=== PATIENT | male | born 1955 | race Caucasian/White ===

== ENCOUNTER 2021-02-20 06:36 | Day surgery (SDC) | payer OTHER ==
[2021-02-16 16:47] LABS: Absolute Lymphocytes (CBC) 2.9 K/uL (0.7-4.9); Basophils % 1.1 % (0-1.3); Hematocrit 34.2 % (39.6-49.0); Lymphocytes % 20.6 % (15.3-44.8); MPV 6.2 fL (7.6-11.3); RBC Red Blood Cell Count 4.08 M/uL (4.33-5.43)
--- NOTE | 2021-02-16 16:50 | RAD REPORT ---
EXAM DESCRIPTION: Elvira Rader (2 Views)02/16/2021 4:43 pm CLINICAL HISTORY: Preop COMPARISON: None FINDINGS: The lungs appear clear of acute infiltrate. The heart is normal size IMPRESSION: No acute abnormalities displayed
[2021-02-16 17:05] LABS: Potassium 4.2 mmol/L (3.5-5.1)
[2021-02-20] MEDS ORDERED: MIDAZOLAM HCL 2 MG/2 ML INJ ONE (07:31)
[2021-02-20] MEDS ORDERED: FENTANYL CITR 100 MCG/2 ML ONE (07:31)
[2021-02-20] MEDS ORDERED: propofoL 200 MG/20 ML VIAL IV ONE (07:31)
[2021-02-20] MEDS ORDERED: ROCURONIUM 50 MG/5 ML VIAL IV ONE (07:31)
[2021-02-20] MEDS ORDERED: LIDOCAINE 1% MPF 5 ML VIAL ONE (07:31)
[2021-02-20 07:36] LABS: Urine Appearance TURBID (Clear); Urine Bilirubin NEGATIVE (Negative); Urine Blood 2+ (Negative); Urine Color YELLOW (Yellow); Urine Glucose NEGATIVE (Negative); Urine Protein 1+ (Negative); Urine Specific Gravity 1.015 (1.005-1.030); Urine pH 5.5 (5.0-7.0)
[2021-02-20 07:48] LABS: Urine Microscopic Reflex ORDER UMIC
[2021-02-20 07:59] LABS: Urine RBC <5 /HPF (NONE SEEN)
[2021-02-20 08:00] LABS: Urine Bacteria >50 /HPF (NONE SEEN)
[2021-02-20] MEDS ORDERED: AMPICILLIN SODIUM 2 GM in NA CHLORIDE 0.9% 100 ML IVPB ONE (08:00)
[2021-02-20] MEDS ORDERED: Gentamicin Inj 240 MG in NA CHLORIDE 0.9% 100 ML IV ONE (08:00)
[2021-02-20] MEDS ORDERED: ONDANSETRON 4 MG/2 ML VIAL ONE (08:29)
[2021-02-20] MEDS ORDERED: dexAMETHasone 10 MG/ML VIAL ONE (08:29)
[2021-02-20] MEDS ORDERED: KETOROLAC 30 MG/ML INJ ONE (08:30)
[2021-02-20] MEDS ORDERED: CODEINE 30MG/APAP 300MG TAB PO PRN (08:31)
[2021-02-20] MEDS ORDERED: PHENAZOPYRIDINE 100MG TAB PO ONE ×2 (08:31→09:47)
[2021-02-20 08:34] VITALS: TEMP 97.5
[2021-02-20 08:49] VITALS: O2SAT 100
[2021-02-20 09:37] VITALS: BP 122/59
[2021-02-20] MEDS ORDERED: CODEINE 30MG/APAP 300MG TAB ONE (09:47)
--- NOTE | 2021-02-20 10:15 | OP ---
Date of Procedure: 02/20/2021 Surgeon: DANIELLE VELA Preoperative Diagnosis: Traumatic scrotal hypospadias. Postoperative Diagnoses: 1.Traumatic scrotal hypospadias. 2.Voiding dysfunction. 3.Mild benign prostatic hypertrophy. Principal Procedures: 1.Cystoscopy. 2.Suprapubic catheter placement. Indication For Procedure: Mr. Alvarez presented to Urology Clinic to see me after having been seen by my nurse practitioner, Imani with urinary retention due to unknown origin. He has a history o f diabetes as well as some developmental delay that could potentially underlie his voiding dysfunctio n. He was originally planned for cystoscopic evaluation, but at the time was noted to have severe tr aumatic hypospadias with the patient having tried to rip the catheter out on multiple occasions and r esulted in the urethra presumably tearing from its location down to beneath the penoscrota l junction. As a result, to spare further deterioration of his urethra, a suprapubic cath eter was recommended. Consultation with reconstructive urologist was held and given the patient's la ck of real mental acuity and lack of bother associated with the penile deformity that he created, a c omplex repair would unlikely be undertaken, especially since he would likely damage that repair by at tempts to remove the catheter. Of note, his caregivers indicate he had tried to rip the catheter out on at least 1 other occasion since I last saw him and recommended the suprapubic catheter be placed. Procedure In Detail: The patient was consented along with his caregiver in the preoperative holding area before being transferred to the operative suite where general anesthesia using an LMA was induce d. He was given ampicillin 2 g and gentamicin 240 mg IV antimicrobial prophylaxis and pneumo boots w ere provided for DVT prophylaxis. He was placed in the lithotomy position, padded and secured to the table appropriately. His genitalia and suprapubic region just beneath the umbilicus was prepped usi ng Betadine and he was draped in standard fashion. The case was begun using a 22-Slovenian rigid cystos cope to traverse the urethra and into the bladder with ease. The bladder was surveyed, and there wer e no papillary mucosal lesions, foreign bodies or stones of suspicion. The mucosa was relatively hea lthy despite the indwelling Macario catheter for a period of time. The prostatic urethra showed eviden ce of mild BPH with mild lateral lobar hypertrophy and mild median lobar hypertrophy without signific ant intravesical projection. The ureteral orifices were orthotopic in location and effluxing clear u rine bilaterally. As a result, I distended his bladder and placed the patient in steep Trendelenburg position before id entifying a place in the suprapubic region at the level of his abdominal crease about 1 or 2 fingerbr eadths above the pubic symphysis, and under direct vision, I placed the 14-Slovenian suprapubic catheter using the stylet. The catheter appropriately entered the target point within the anterior component of the bladder, and was advanced into the bladder. The stylet was removed, and the catheter was the n coiled using the Largo-Loop technology associated. With a good loop formed within the bladder, I th en removed the cystoscope and placed an 18-Slovenian Macario catheter into his bladder with ease. The sup rapubic catheter was then sutured to his abdomen using 2-0 nylon suture, and the case was completed. All catheters were secured copiously and multiple points to his abdomen and to his bilateral lower e xtremities in order to prohibit attempts to dislodge them. The suprapubic catheter to a leg bag and the urethral Macario catheter to a floor bag. The patient was then awakened from general anesthesia, t ransferred to a stretcher, and then transferred to the recovery room in good condition. Complications: None apparent. Discharge Disposition: He should follow up in Urology Clinic in about 6-8 weeks for exchange of the 14-Slovenian suprapubic catheter, likely to a 16-Slovenian catheter if appropriate dilatation of the tract occurs over this time-frame. Consideration may be given to providing him with a week or 2 of prophyl actic antimicrobial with Keflex 500 mg b.i.d. Subsequently, followup for suprapubic catheter exchang e may occur per routine every 4-6 weeks, and after about 3-4 weeks with a suprapubic catheter in plac e, the urethral Macario catheter can reasonably be removed. Care of the penoscrotal hypospadias site s hould then be managed with continued application of Neosporin/bacitracin twice a day to prohibit stri cturing of the neomeatus within the scrotum. This should also be evaluated at least every 4-6 weeks at the same time as a suprapubic catheter exchange to preserve that access if needed. MARTHA/BERNARDO Voice ID: [id number] Report ID: [id number]
== END 2021-02-20 09:59 | disposition home or self-care (01) ==
LOC: PRE 06:36 → OR 09:59
PROVIDERS: ATTEND Urology
PROC: 0T9B80Z Drainage of Bladder with Drainage Device, Via Natural or Artificial Opening Endoscopic (ICD-10-PCS; principal; 2021-02-20 07:30)
DX: R33.9 Retention of urine, unspecified (principal); R39.9 Unspecified symptoms and signs involving the genitourinary system; Q54.4 Congenital chordee; Q54.2 Hypospadias, penoscrotal; Z20.822 Contact with and (suspected) exposure to COVID-19
CPT/HCPCS: 36415; 71046; 80048; 81003; 81015; 82947; 85025; 85610; 87077; 87086; 87088; 87186; 93005; J0290; J1100; J1580; J2250; J2405; J2704; J3010; U0003

== ENCOUNTER 2021-03-13 11:17 | Emergency (ER) | payer OTHER ==
--- NOTE | 2021-03-13 15:04 | EDPHYS ---
Physician Documentation [facility] Name: Wilder Alvarez Age: 66 yrs Sex: Male : 1955 Arrival Date: 03/13/2021 Time: 11:17 Bed 23 Private MD: Agatha Cheek ED Physician Julian España HPI: 03/14 09:15 This 66 yrs old Male presents to ER via Ambulatory with complaints of Problem kdr With Urinary Catheter. 09:15 The patient presents with a Macario catheter problem, was pulled out purposely, And had a kdr suprapubic catheter placed about [address] Fowler. Patient pulled the catheter out today yesterday.. Onset: The symptoms/episode began/occurred yesterday. Modifying factors: The symptoms are alleviated by nothing, the symptoms are aggravated by nothing. Associated signs and symptoms: The patient has no apparent associated signs or symptoms. Severity of symptoms: At their worst the symptoms were mild, moderate, just prior to arrival, in the emergency department the symptoms are unchanged. It is unknown whether or not the patient has had similar symptoms in the past. The patient has been recently seen by a physician: Dr. Fowler. Historical: - Allergies: 03/13 11:29 TB shot; iw - Home Meds: 11:29 Metformin Oral [Active]; Fluoxetine Oral [Active]; iw - Social history:: Smoking status: . ROS: 03/14 09:15 Constitutional: Negative for fever, chills, and weight loss, Eyes: Negative for injury, kdr pain, redness, and discharge, Cardiovascular: Negative for chest pain, palpitations, and edema, Respiratory: Negative for shortness of breath, cough, wheezing, and pleuritic chest pain, Abdomen/GI: Negative for abdominal pain, nausea, vomiting, diarrhea, and constipation, Back: Negative for injury and pain, MS/Extremity: Negative for injury and deformity, Skin: Negative for injury, rash, and discoloration. : Positive for Patient has an indwelling Macario catheter that appears to be draining normally. There is a site in the pubic region where it appears the suprapubic cath had previously existed. There is no drainage from that site. Exam: 09:15 Constitutional: This is a well developed, well nourished patient who is awake, alert, kdr and in no acute distress. Head/Face: Normocephalic, atraumatic. Chest/axilla: Normal chest wall appearance and motion. Nontender with no deformity. No lesions are appreciated. Cardiovascular: Regular rate and rhythm with a normal S1 and S2. No gallops, murmurs, or rubs. Normal PMI, no JVD. No pulse deficits. Respiratory: Lungs have equal breath sounds bilaterally, clear to auscultation and percussion. No rales, rhonchi or wheezes noted. No increased work of breathing, no retractions or nasal flaring. Back: No spinal tenderness. No costovertebral tenderness. Full range of motion. Skin: Warm, dry with normal turgor. Normal color with no rashes, no lesions, and no evidence of cellulitis. 09:15 Abdomen/GI: There is a small wound in the supra pubic area which appears to be the remnant site where the suprapubic cath had been placed. There is no drainage at this time. There is no evidence of infection or any other complication. Vital Signs: 03/13 11:27 Weight 79.83 kg (M); Height 5 ft. 8 in. (172.72 cm); iw 12:00 BP 123 / 38; Pulse 108; Resp 20; Temp 98.8; Pulse Ox 99% ; Pain 0/10; tc5 12:49 BP 107 / 68; Pulse 90; Resp 20; Pulse Ox 98% ; Pain 0/10; tc5 14:00 BP 108 / 52; Pulse 90; Resp 18; Pulse Ox 98% ; Pain 0/10; tc5 14:59 BP 105 / 65; Pulse 93; Resp 16; Pulse Ox 100% ; Pain 0/10; tc5 11:27 Body Mass Index 26.76 (79.83 kg, 172.72 cm) iw MDM: 15:03 Patient medically screened. kdr 15:05 Data reviewed: vital signs, nurses notes, lab test result(s). Counseling: I had a kdr detailed discussion with the patient and/or guardian regarding: the historical points, exam findings, and any diagnostic results supporting the discharge/admit diagnosis, lab results, radiology results, the need for outpatient follow up. ED course: The bladder scan results showed 0 retained urine with the Macario in place through the patient's penis.. 03/14 09:15 ED course: I discussed the case with Dr. Fowler. He indicated the patient should be kdr discharged and follow-up with him in the office for further evaluation and possibly replacement of the suprapubic cath. ED course: Patient was discharged home with his caregiver. They were happy with the care provided and the plan for discharge with follow-up with Dr. Andersen. 03/13 11:56 Order name: Urine Dipstick-Ancillary (obtain specimen); Complete Time: 14:19 kdr Administered Medications: No medications were administered Disposition Summary: 03/13/21 15:03 Discharge Ordered Location: Home kdr Problem: new kdr Symptoms: have improved kdr Condition: Stable kdr Diagnosis - Suprapubic Macario catheter displacement - unresolved kdr Followup: kdr - With: Agatha Cheek - When: 2 - 3 days - Reason: If symptoms return, Further diagnostic work-up, Recheck today's complaints, Continuance of care, Re-evaluation by your physician Followup: kdr - With: Paul Fowler MD - When: 2 - 3 days - Reason: If symptoms return, Further diagnostic work-up, Recheck today's complaints, Continuance of care, Re-evaluation by your physician Discharge Instructions: - Discharge Summary Sheet kdr - Indwelling Urinary Catheter Care, Adult, [id number] kdr Forms: - Medication Reconciliation Form kdr - Thank You Letter kdr Signatures: Julian España MD MD kdr Joselyn Willis RN RN iw
--- NOTE | 2021-03-13 15:04 | ER ---
Nurse's Notes [facility] Name: Wilder Alvarez Age: 66 yrs Sex: Male : 1955 Arrival Date: 03/13/2021 Time: 11:17 Bed 23 Private MD: Agatha Cheek Diagnosis: Suprapubic Steve catheter displacement - unresolved Presentation: 03/13 11:27 Chief complaint: Friend and/or Co-Worker states: had suprapubic catheter placed by Dr. saba Fowler 3 weeks ago , pt pulled it out yesterday, he also has a steve catheter in place. Coronavirus screen: At this time, the client does not indicate any symptoms associated with coronavirus-19. Ebola Screen: Patient negative for fever greater than or equal to 101.5 degrees Fahrenheit, and additional compatible Ebola Virus Disease symptoms Patient denies exposure to infectious person. Patient denies travel to an Ebola-affected area in the 21 days before illness onset. No symptoms or risks identified at this time. Initial Sepsis Screen: Does the patient meet any 2 criteria? No. Patient's initial sepsis screen is negative. Does the patient have a suspected source of infection? No. Patient's initial sepsis screen is negative. Risk Assessment: Do you want to hurt yourself or someone else? Patient reports no desire to harm self or others. Onset of symptoms was March 12, 2021. 11:27 Method Of Arrival: Ambulatory 11:27 Acuity: COLUM[place] 3 iw Historical: - Allergies: 11:29 TB shot; iw - Home Meds: 11:29 Metformin Oral [Active]; Fluoxetine Oral [Active]; iw - Social history:: Smoking status: . Screenin:03 Abuse screen: Denies threats or abuse. Denies injuries from another. Nutritional tc5 screening: No deficits noted. Tuberculosis screening: No symptoms or risk factors identified. Fall Risk None identified. Assessment: 11:58 General: Appears in no apparent distress. Behavior is calm, cooperative, inappropriate tc5 for age. Pain: Denies pain. Neuro: No deficits noted. Cardiovascular: tachycardia.. Respiratory: No deficits noted. : Steve in place pt had suprapubic cath that he pulled out yesterday, has steve currently in place. Vital Signs: 11:27 Weight 79.83 kg (M); Height 5 ft. 8 in. (172.72 cm); iw 12:00 BP 123 / 38; Pulse 108; Resp 20; Temp 98.8; Pulse Ox 99% ; Pain 0/10; tc5 12:49 BP 107 / 68; Pulse 90; Resp 20; Pulse Ox 98% ; Pain 0/10; tc5 14:00 BP 108 / 52; Pulse 90; Resp 18; Pulse Ox 98% ; Pain 0/10; tc5 14:59 BP 105 / 65; Pulse 93; Resp 16; Pulse Ox 100% ; Pain 0/10; tc5 11:27 Body Mass Index 26.76 (79.83 kg, 172.72 cm) iw ED Course: 11:17 Patient arrived in ED. am2 11:18 Agatha Cheek is Private Physician. am2 11:24 Nanette Juarez, RN is Primary Nurse. tc5 11:29 Triage completed. iw 11:33 Arm band placed on. iw 11:55 Julian España MD is Attending Physician. kdr 15:02 Agatha Cheek is Referral Physician. kdr 15:02 Paul Fowler MD is Referral Physician. kdr 15:19 No provider procedures requiring assistance completed. tc5 Administered Medications: No medications were administered Outcome: 15:03 Discharge ordered by . kdr 15:20 Patient left the ED. 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
[2021-03-13 15:25] VITALS: TEMP 98.8
[2021-03-13 15:29] VITALS: BP 105/65; O2SAT 100
[2021-03-18 12:19] LABS: Urine Blood 2+ (Negative); Urine Glucose Negative (Negative); Urine Protein 1+ (Negative)
== END 2021-03-13 15:20 | disposition home or self-care (01) ==
LOC: ER 11:17
DX: T83.028A Displacement of other urinary catheter, initial encounter (principal)
CPT/HCPCS: 81003; 99281

== ENCOUNTER → 2021-04-24 | Day surgery (SDC) | payer OTHER ==
[~2021-04-24] MED LIST: AMPICILLIN SODIUM 2 GM in NA CHLORIDE 0.9% 100 ML IVPB SCH; GENTAMICIN 100 MG/100 ML BAG 100 ML IV SCH; NA CHLORIDE 0.9% 0 ML ONE
== END ==
LOC: OR 10:15
PROVIDERS: ATTEND Urology
DX: Q54.2 Hypospadias, penoscrotal (principal); N39.8 Other specified disorders of urinary system; Z20.822 Contact with and (suspected) exposure to COVID-19; Z53.8 Procedure and treatment not carried out for other reasons
CPT/HCPCS: 87088; 87086; 82947; 87077 ×2; 87186 ×2; U0003; J1580; J0290; J7030

== ENCOUNTER 2021-05-15 10:49 | Day surgery (SDC) | payer OTHER ==
[2021-05-15] MEDS: NA CHLORIDE 0.9% 1,000 ML ONE ×2 (12:00→13:04)
[2021-05-15] MEDS ORDERED: Gentamicin Inj 200 MG in NA CHLORIDE 0.9% 100 ML IVPB ONE (12:00)
[2021-05-15] MEDS ORDERED: AMPICILLIN SODIUM 2 GM in NA CHLORIDE 0.9% 100 ML IVPB ONE (12:00)
[2021-05-15] MEDS ORDERED: propofoL 200 MG/20 ML VIAL IV ONE (12:56)
[2021-05-15] MEDS ORDERED: FENTANYL CITR 100 MCG/2 ML ONE (12:56)
[2021-05-15] MEDS ORDERED: LIDOCAINE 1% MPF 5 ML VIAL ONE (12:56)
[2021-05-15] MEDS ORDERED: MIDAZOLAM HCL 2 MG/2 ML INJ ONE (12:56)
[2021-05-15] MEDS: FENTANYL CITR 100 MCG/2 ML ONE ×2 (14:16→14:23)
[2021-05-15] MEDS ORDERED: ACETAMINOPHEN 500 MG TAB PO ONE (14:17)
[2021-05-15] MEDS ORDERED: ACETAMINOPHEN 500 MG TAB ONE (15:03)
--- NOTE | 2021-05-15 15:18 | OP ---
Surgeon: DANIELLE VELA Preoperative Diagnoses: 1.Traumatic perineal hypospadias. 2.Urinary retention. 3.Voiding dysfunction. Postoperative Diagnoses: 1.Traumatic perineal hypospadias. 2.Urinary retention. 3.Voiding dysfunction. Principle Procedures: 1.Cystoscopy. 2.Examination under anesthesia. 3.Placement of a suprapubic catheter. Indication For Procedure: Mr. Alvarez is a 66-year-old gentleman with developmental delay and othe r medical comorbidities, who previously failed multiple attempts at voiding trial despite lack of sig nificant anatomic obstruction cystoscopically. He had a urethral Macario catheter in place and had rip ped it out on several occasions, which previously resulted in perineal scrotal hypospadias. I consul willam with chief of Urology and reconstructive surgeon, Dr. Justin Valentine about this, and he noted ama t given the patient's mental status that if he was not significantly bothered by the presence of a hy pospadias, there will unlikely any benefit to repair. Also, since the patient was prone to ripping o ut catheters and any urethral repair would require a catheter or stenting for a period of time and he aling, this would be unlikely achievable in this individual. As a result, we placed a suprapubic cat heter, but within a few weeks of the catheter placement, the patient ripped that out as well. Since then, the urethral Macario catheter has been reinserted and he has ripped it out again on several occas ions apparently according to the facility. As a result, he presents today for replacement of the sup rapubic catheter, and I insisted on him having been seen preoperatively by a psychiatrist to medicate him and try to keep him from potentially ripping out the catheter if at all possible until 6 weeks o f elapsed and the tract has been well established. They did see a psychiatrist, but were only given p.r.n. medication. My plan is to speak with a psychiatrist after suprapubic catheter placement today . Procedure In Detail: The patient was consented in the preoperative holding area associated with his caregiver before being transferred to the operative suite where general anesthesia was induced. He w as taking Augmentin given the most recent urine culture revealing ESBL E coli sensitive to Augmentin. He was previously on ciprofloxacin, but the cultures were now resistant. The prior culture reveale d Pseudomonas. He was then transferred to the operative suite where general anesthesia was given as well as antimicrobial prophylaxis with ampicillin 2 g and gentamicin. Pneumo boots were provided for DVT prophylaxis. He was placed in the lithotomy position, padded and secured to the table appropria tely. His genitalia were prepped using Hibiclens after the urethral Macario catheter was removed, and the suprapubic area up to the umbilicus was prepped using Betadine. The case was begun initially by performing an examination under anesthesia. The exam revealed severe traumatic hypospadias with comp lete disruption of the ventral urethral plate from the meatus within the glans all the way down throu gh the perineum, almost through the junction of the anus. The urethral plate was beefy red in appear ance and healthy appearing, but completely disrupted. Then, using a 22-Bahamian rigid cystoscope, I navigated the catheter via the prostatic urethra, which w as immediately accessible via the perineal hypospadiac opening, and I navigated through the prostate into the bladder with ease. Again, there was no significant lateral or median lobar hypertrophy asso ciated with BPH. The bladder was then decompressed of urine and then refilled and surveyed. There w ere no concerning mucosal lesions, foreign bodies or stones noted throughout. There was mild edema w ithin the base and posteriorly within the bladder consistent with catheter trauma and inflammation. I thus distended his bladder to 30 cm of water pressure before placing him in the steep Trendelenburg position. I then made an incision approximately 1 cm in Elza line orientation in the suprapubic r egion and passed the 14-Bahamian suprapubic catheter into the bladder under direct vision cystoscopical ly. Once within the bladder, the stylet was removed and the catheter did coil using the Avery-Loop te chnology. I then secured the catheter in place using 2-0 silk sutures, 1 on each side of the incisio n. The returning efflux of urine was clear. We thus secured the catheter in place using the cathete r securing device that came with the suprapubic set as well as excessive tape to completely cover the area so that he would not have the opportunity hopefully to rip it out. This was connected to a leg bag, and the patient was then taken out of the lithotomy position. He was awakened from general ane sthesia, transferred to a stretcher, and then transferred to the recovery room in good condition. Complications: None. Discharge Disposition: He should follow up immediately with a psychiatrist who may need to consider some significant sedative therapy, which I would ask to be in place for the next 6 weeks while the almazan prapubic tract has an opportunity to heal. At that point, we will then be able to exchange it to ano ther catheter and upsize it to 16-Bahamian, but if he accidentally rips it out or intentionally rips it out, it would not be difficult to replace within a day or 2 of its dislodgement. He should complete the course of Augmentin therapy prescribed for 10 days as the tract heals. MARTHA/BERNARDO Voice ID: [id number] Report ID: [id number]
[2021-05-15 15:28] VITALS: BP 105/46; TEMP 97.4; O2SAT 100
== END 2021-05-15 15:20 | disposition home or self-care (01) ==
LOC: OR 10:49
PROVIDERS: ATTEND Urology
PROC: 0T9B30Z Drainage of Bladder with Drainage Device, Percutaneous Approach (ICD-10-PCS; principal; 2021-05-15 11:30)
DX: R33.9 Retention of urine, unspecified (principal); Q54.3 Hypospadias, perineal; Z20.822 Contact with and (suspected) exposure to COVID-19
CPT/HCPCS: 87088; 87086; 82947 ×2; 87077; 87186; 51102; U0003; J2704; J1580; J2250; J3010 ×2; J7030; J0290

== ENCOUNTER 2021-10-18 18:27 | Inpatient (IN) | payer OTHER ==
--- OUTSIDE RECORDS SUMMARY | 2021-10-18 18:30 | XMS REPORT | Continuity of Care Document ---
:1955 Author Organization [facility] t Address [address] [place] [address] Care Team Providers Name Role Phone Doctor Unassigned, [place] Attending Clinician Unavailable Pob, Lab Main Attending Clinician Unavailable Tasia GALVAN Attending Clinician TASIA Attending Clinician Unavailable CHRISTINA Attending Clinician Unavailable Christina GALVAN Attending Clinician Payers Payer Name Policy Type Policy Number Effective Date Expiration Date S ource Problems This patient has no known problems. Allergies, Adverse Reactions, Alerts Allergy Allergy Status Severity Reaction(s) Onset Inactive Treating Comm ents Source Name Type Date Date Clinician NO KNOWN Drug Active Univers ALLERGIE Class ity of [facility] Social History Social Habit Start Date Stop Date Quantity Comments Source Exposure to Not sure [facility] SARS-CoV-2 (event) Medica l Branch Sex Assigned At [birth year] [facility] 00:00:00 00:00:00 Medical Branch Smoking Status Start Date Stop Date Source Unknown if ever smoked General acute hospital Medications This patient has no known medications. Procedures Procedure Date / Time Performed Performing Clinician Formerly [facility] e EXTERNAL PROVIDER - 2020-11-14 05:01:00 Doctor Unassigned, No Un [facility] of [facility] REFERRAL Name Medical Branch PHYSICIAN ORDERS 2020-09-04 05:01:00 Doctor Unassigned, No [facility] PHYSICIAN ORDERS 2020-06-21 06:01:00 Doctor Unassigned, No [facility] PHYSICIAN ORDERS 2020-06-15 06:01:00 Doctor Unassigned, No [facility] CONSENT/REFUSAL FOR 2020-06-01 22:21:21 Doctor Unassigned, No Un [facility] [place] DIAGNOSIS AND Name Medical Branch TREATMENT Encounters Start End Encounter Admission Attending Care Care Encounter Source Date/Time Date/Time Type Type Clinicians Facility Department ID 2021-08-13 Outpatient [facility] [id number] Common 15:27:02 [facility] 2021-06-27 Outpatient [facility] [id number] Common 13:16:53 [id number] [facility] 2020-11-14 2020-11-14 Orders Doctor SARMIENTO [id number] Univers 00:00:00 00:00:00 Only Unassigned, MARY [id number] [facility] [id number] Ender as [phone] [address] 2020-09-04 2020-09-04 Orders Doctor SARMIENTO [id number] Univers 00:00:00 00:00:00 Only Unassigned, MARY [id number] [facility] [id number] [place] as [phone] [address] 2020-06-21 2020-06-21 Gift Manager Alok, Taniya Lab Main [facility] 1.2.8 40.114 [id number] Univers 11:51:27 12:06:27 Visit Justin Medrano [id number] [phone] [address] 2020-06-21 2020-06-21 Outpatient R [facility] [id number] Univers 12:00:00 12:00:00 [id number] ity of [facility] 2020-06-21 2020-06-21 Outpatient R TASIA [facility] [id number] Univers 12:00:00 12:00:00 JUSTIN mcpherson [facility] 2020-06-21 2020-06-21 Orders Doctor SARMIENTO [id number] Univers 00:00:00 00:00:00 Only Unassigned, MARY [id number] [facility] [place] [facility] [id number] [place] as [phone] [address] 2020-06-15 2020-06-15 Gift Manager Alok, Adc Lab Main [facility] 1.2.8 40.114 [id number] Univers 09:08:20 09:23:20 Visit Tasia Justin Fair [id number] [id number] [phone] Mo dical nal [address] [place] [address] 2020-06-15 2020-06-15 Outpatient R [facility] [id number] Univers 09:15:00 09:15:00 [id number] ity [facility] 2020-06-15 2020-06-15 [facility] [id number] Univers 09:15:00 09:15:00 JUSTIN ity [facility] 2020-06-15 2020-06-15 Orders Doctor SARMIENTO [id number] Univers 00:00:00 00:00:00 Only Unassigned, MARY [id number] ity of [facility] [id number] Ender as [phone] [address] 2020-06-13 2020-06-13 Outpatient R [facility] [id number] Univers 09:30:00 09:30:00 [id number] ity [facility] 2020-06-01 2020-06-01 Outpatient R [facility] [id number] Univers 16:45:00 16:45:00 [id number] ity [facility] 2020-06-01 2020-06-01 [facility] [id number] Univers 16:45:00 16:45:00 VINITHA ity [facility] 2020-06-01 2020-06-01 Gift Manager Alok, Adc Lab Main [facility] 1.2.8 40.114 [id number] Univers 16:23:49 16:38:49 Visit Elias Mckeon [id number] [id number] [phone] Mo dic[address] 2020-06-01 2020-06-01 Orders Doctor GUILLERMINA [id number] 00:00:00 00:00:00 Only Unassigned, MARY [id number] ity of [place] [facility] [id number] Ender as [phone] [facility] 009 Branch Results This patient has no known results.
[2021-10-18 20:29] LABS: Absolute Lymphocytes (CBC) 2.4 K/uL (0.7-4.9); Hematocrit 36.2 % (39.6-49.0); Lymphocytes % 20.8 % (15.3-44.8); RBC Red Blood Cell Count 4.49 M/uL (4.33-5.43)
[2021-10-18 20:40] LABS: Potassium 4.5 mmol/L (3.5-5.1)
[2021-10-18 20:47] LABS: Urine Blood 3+ (Negative); Urine Glucose Negative (Negative); Urine Protein 2+ (Negative); Urine pH 5.5 (5.0-7.0)
[2021-10-18 21:10] LABS: Urine Amorphous Sediment 4+ /HPF (NONE SEEN); Urine Bacteria >50 /HPF (NONE SEEN); Urine RBC >50 /HPF (NONE SEEN)
--- NOTE | 2021-10-18 21:14 | ER ---
Nurse's Notes [facility] Name: Wilder Alvarez Age: 66 yrs Sex: Male : 1955 Arrival Date: 10/18/2021 Time: 18:48 Bed 15 Private MD: Diagnosis: UTI/ Urinary tract infection, site not specified;Other mechanical complication of urinary (indwelling) catheter;Altered mental status, unspecified Presentation: 10/18 19:00 Chief complaint: EMS states: SENT FROM [facility] FOR LEAKING SUPRAPUBIC CATH. bp Coronavirus screen: At this time, the client does not indicate any symptoms associated with coronavirus-19. Ebola Screen: No symptoms or risks identified at this time. Initial Sepsis Screen: Does the patient meet any 2 criteria? No. Patient's initial sepsis screen is negative. Does the patient have a suspected source of infection? No. Patient's initial sepsis screen is negative. Risk Assessment: Do you want to hurt yourself or someone else? Patient reports no desire to harm self or others. Onset of symptoms is unknown. 19:00 Method Of Arrival: EMS: [facility] bp 19:00 Acuity: COLUM[place] 3 bp Triage Assessment: 19:00 General: Appears in no apparent distress. comfortable, unkempt, Behavior is bp cooperative, Smells of URINE. Pain: Denies pain. EENT: No deficits noted. Neuro: Level of Consciousness is awake, alert, confused, Oriented to person, place. Cardiovascular: No deficits noted. Respiratory: No deficits noted. GI: No signs and/or symptoms were reported involving the gastrointestinal system. : suprapubic catheter in place. Derm: No deficits noted. Musculoskeletal: No deficits noted. Historical: - Allergies: 19:02 TB shot; bp - Home Meds: 19:02 fluvoxamine 100 mg Oral cp24 1 cap three times a day [Active]; clomipramine 75 mg oral bp cap 1 cap once daily [Active]; 10/19 00:13 clomipramine 75 mg oral cap [Active]; fluvoxamine 100 mg oral tab three times a day ag7 [Active]; VESCEPA 1 GM BY MOUTH TWICE DAILY [Active]; 00:19 Metformin Oral [Active]; lisinopril-hydrochlorothiazide 10-12.5 mg oral tab 1 tab once ag7 daily [Active]; - PMHx: 10/18 19:02 Hypertensive disorder; Hypothyroidism; bp 10/19 00:13 MILD MENTAL RETARDATION; OBSESSIVE COMPULSIVE DISORDER; ag7 - Immunization history:: Adult Immunizations up to date. - Social history:: Smoking status: unknown. - Family history:: not pertinent. - Hospitalizations: : No recent hospitalization is reported. Screenin/19 20:50 Abuse screen: Denies threats or abuse. Nutritional screening: No deficits noted. ag7 Tuberculosis screening: No symptoms or risk factors identified. Fall Risk No fall in past 12 months (0 pts). No secondary diagnosis (0 pts). IV access (20 points). Ambulatory Aid- None/Bed Rest/Nurse Assist (0 pts). Gait- Impaired (20 pts.). Mental Status- Oriented to own ability (0 pts). Total Portillo Fall Scale indicates Low Risk Score (25-44 pts). Fall prevention measures have been instituted. Side Rails Up X 2 Placed close to Nursing Station Frequent Obs/Assesments occuring As available Patient and Family Educated on Fall Prevention Program and strategies. Assessment: 19:00 Reassessment: Patient and/or family updated on plan of care and expected duration. Pain ag7 level reassessed. The patient is alert to person and disoriented to time, place, and situation. Patient denies pain at this time. Cardiovascular: Patient's skin is warm and dry. Respiratory: Airway is patent Trachea midline Respiratory effort is even, unlabored, Respiratory pattern is regular, symmetrical. 20:09 Reassessment: Suprapubic catheter irrigation with NS 50 ML, patient tolerate well. ag7 21:00 Reassessment: Patient and/or family updated on plan of care and expected duration. Pain ag7 level reassessed. 22:00 Reassessment: No changes from previously documented assessment. ag7 23:00 Reassessment: No changes from previously documented assessment. bed linen changed, ag7 patient tolerate well, call light in reach, bed locked in low position. Vital Signs: 19:00 BP 133 / 82; Pulse 81; Resp 16; Temp 98; Pulse Ox 96% ; bp 20:00 BP 114 / 68; Pulse 78; Resp 16; Pulse Ox 99% ; Pain 0/10; ag7 23:12 BP 114 / 64 LA (auto/reg); Pulse 82; Resp 16 S; Pulse Ox 100% on R/A; Pain 3/10; ag7 10/19 00:00 BP 101 / 59; Pulse 79; Pulse Ox 95% ; ag7 ED Course: 10/18 18:48 Patient arrived in ED. iw 18:52 Daren Castaneda MD is Attending Physician. rn 19:00 Umer Mary, BENEDICTO is Primary Nurse. bp 19:00 Arm band placed on. bp 19:02 Triage completed. bp 20:49 Inserted saline lock: 20 gauge in left antecubital area, using aseptic technique. ag7 20:51 Patient has correct armband on for positive identification. Placed in gown. Bed in low ag7 position. Call light in reach. Side rails up X 1. 20:51 No provider procedures requiring assistance completed. ag7 21:12 Fortino Good is Hospitalizing Provider. rn 21:18 Abdomen In Process Unspecified. EDMS 22:00 Missed attempt(s): 20 gauge in right antecubital area. ag7 22:00 Missed attempt(s): 20 gauge in left antecubital area. Bleeding controlled, band aid ag7 applied, catheter tip intact. 22:00 IV was discontinued by the patient. 20 gauge to lefft AC, catheter intact. ag7 22:01 Inserted saline lock: 20 gauge in right hand, using aseptic technique. ag7 23:20 SARS-COV-2 RT PCR (Document "Date of Onset" if Symptomatic) Sent. ag7 10/19 00:29 Patient admitted, IV remains in place. ag7 Administered Medications: 10/18 21:59 Drug: Rocephin (cefTRIAXone) 1 grams Route: IV; Rate: calculated rate; Site: right hand;ag7 Medication: 20:51 VIS not applicable for this client. ag7 Output: 10/19 00:13 Urine: 250ml (Macario); Total: 250ml. ag7 Outcome: 10/18 21:12 Decision to Hospitalize by Provider. rn 10/19 00:28 Admitted to Med/surg accompanied by nurse, via stretcher, room 205, with chart, Report ag7 called to Franko DIANE Condition: stable 00:43 Patient left the ED. ag7 Signatures: Dispatcher [employer] EDNY Joselyn Willis RN RN Daren Castaneda MD MD rn Peltier, Brian, RN RN bp Glenn, Angela, RN RN ag7 Corrections: (The following items were deleted from the chart) 10/18 21:59 19:00 Reassessment: Patient and/or family updated on plan of care and expected ag7 duration. Pain level reassessed. Patient is alert, oriented x 3, equal unlabored respirations, skin warm/dry/pink. Patient denies pain at this time. ag7
--- NOTE | 2021-10-18 21:14 | EDPHYS ---
Physician Documentation [facility] Name: Wilder Alvarez Age: 66 yrs Sex: Male : 1955 Arrival Date: 10/18/2021 Time: 18:48 Bed 15 Private MD: ED Physician Daren Castaneda HPI: 10/18 19:09 This 66 yrs old Male presents to ER via EMS with complaints of Problem With Urinary rn Catheter. 19:09 This 66 yrs old Male presents to ER via EMS with complaints of Problem With Urinary rn Catheter. 19:09 The patient presents with a Macario catheter problem, is leaking urine. Onset: The rn symptoms/episode began/occurred at an unknown time. Modifying factors: The symptoms are alleviated by nothing, the symptoms are aggravated by nothing. Associated signs and symptoms: Pertinent positives: abdominal pain, Pertinent negatives: fever, nausea, vomiting. Severity of symptoms: At their worst the symptoms were mild, in the emergency department the symptoms are unchanged. It is unknown whether or not the patient has had similar symptoms in the past. The patient has not recently seen a physician. EMS reports leaking suprapubic urinary catheter, unknown onset, [facility], no fever, stable vitals, no interventions. . Historical: - Allergies: 19:02 TB shot; bp - Home Meds: 19:02 fluvoxamine 100 mg Oral cp24 1 cap three times a day [Active]; clomipramine 75 mg oral bp cap 1 cap once daily [Active]; 10/19 00:13 clomipramine 75 mg oral cap [Active]; fluvoxamine 100 mg oral tab three times a day ag7 [Active]; VESCEPA 1 GM BY MOUTH TWICE DAILY [Active]; 00:19 Metformin Oral [Active]; lisinopril-hydrochlorothiazide 10-12.5 mg oral tab 1 tab once ag7 daily [Active]; - PMHx: 10/18 19:02 Hypertensive disorder; Hypothyroidism; bp 10/19 00:13 MILD MENTAL RETARDATION; OBSESSIVE COMPULSIVE DISORDER; ag7 - Immunization history:: Adult Immunizations up to date. - Social history:: Smoking status: unknown. - Family history:: not pertinent. - Hospitalizations: : No recent hospitalization is reported. ROS: 10/18 19:09 Constitutional: Negative for fever, chills, and weight loss, Eyes: Negative for injury, rn pain, redness, and discharge, Neck: Negative for injury, pain, and swelling, Cardiovascular: Negative for chest pain, palpitations, and edema, Respiratory: Negative for shortness of breath, cough, wheezing, and pleuritic chest pain, Abdomen/GI: + left lower abd pain Back: Negative for injury and pain, : + leaking suprapubic catheter MS/Extremity: Negative for injury and deformity, Skin: Negative for injury, rash, and discoloration, Neuro: Negative for headache, weakness, numbness, tingling, and seizure. Exam: 19:09 Constitutional: This is a well developed, well nourished patient who is awake, alert, rn and in no acute distress. Head/Face: Normocephalic, atraumatic. Eyes: Periorbital areas with no swelling, redness, or edema. Cardiovascular: Regular rate and rhythm. No pulse deficits. Respiratory: No increased work of breathing, no retractions or nasal flaring. Abdomen/GI: soft, non-tender, very minimal suprapubic catheter leakage from stoma, no purulence Skin: Warm, dry MS/ Extremity: Pulses equal, no cyanosis. Neuro: Awake and alert, GCS 15, oriented to person, place, not time. Motor strength 4/5 in all extremities. Sensory grossly intact. Vital Signs: 19:00 BP 133 / 82; Pulse 81; Resp 16; Temp 98; Pulse Ox 96% ; bp 20:00 BP 114 / 68; Pulse 78; Resp 16; Pulse Ox 99% ; Pain 0/10; ag7 23:12 BP 114 / 64 LA (auto/reg); Pulse 82; Resp 16 S; Pulse Ox 100% on R/A; Pain 3/10; ag7 10/19 00:00 BP 101 / 59; Pulse 79; Pulse Ox 95% ; ag7 MDM: 10/18 18:52 Patient medically screened. rn 21:09 ED course: [facility], patient more agitated than normal and keeps tugging and rn messing with catheter. . 21:11 Differential diagnosis: UTI, catheter problem. Data reviewed: vital signs, nurses rn notes, lab test result(s), and as a result, I will admit patient. Counseling: I had a detailed discussion with the patient and/or guardian regarding: the historical points, exam findings, and any diagnostic results supporting the discharge/admit diagnosis, lab results, the need for further work-up and treatment in the hospital. Response to treatment: the patient's symptoms have mildly improved after treatment, and as a result, I will admit patient. Admission orders: after a detailed discussion of the patient's condition and case, the admit orders are written by me. ED course: Drainage improved after swapping bag and irrigating catheter, + UTI, + AMS per report, will admit with IV abx. . 10/18 19:08 Order name: CBC with Diff; Complete Time: 21:09 rn 10/18 19:08 Order name: Basic Metabolic Panel; Complete Time: 21:09 10/18 19:08 Order name: Procalcitonin; Complete Time: 21:17 rn 10/18 19:08 Order name: Urine Culture rn 10/18 19:08 Order name: Urine Microscopic Only; Complete Time: 21:17 10/18 19:08 Order name: Blood Culture Adult (2) 10/18 19:08 Order name: IV Start; Complete Time: 20:48 10/18 19:08 Order name: Urine Dipstick-Ancillary (obtain specimen); Complete Time: 20:48 10/18 19:08 Order name: CT Abd/Pelvis - IV Contrast Only 10/18 19:12 Order name: Abdomen ; Complete Time: 21:32 EDMS 10/18 19:14 Order name: Misc. Order: irrigate suprapubic catheter; Complete Time: 20:48 10/18 20:48 Order name: Urine Dipstick-Ancillary; Complete Time: 21:09 EDCA 10/18 21:39 Order name: SARS-COV-2 RT PCR (Document "Date of Onset" if Symptomatic) m Administered Medications: 21:59 Drug: Rocephin (cefTRIAXone) 1 grams Route: IV; Rate: calculated rate; Site: right hand;ag7 Disposition Summary: 10/18/21 21:12 Hospitalization Ordered Hospitalization Status: Inpatient Admission rn Provider: Fortino Good [facility]n [facility] rn Condition: Stable rn Problem: new rn Symptoms: have improved rn Bed/Room Type: Standard rn Room Assignment: 205(10/18/21 23:48) mw Diagnosis - UTI/ Urinary tract infection, site not specified rn - Other mechanical complication of urinary (indwelling) catheter rn - Altered mental status, unspecified rn Forms: - Medication Reconciliation Form rn - SBAR form rn Signatures: Dispatcher [employer] Delisa Carlson, RN Daren Keys MD MD rn Peltier, Brian, RN Vania Turpin PA PA [id number] Cristela Martinez RN RN ag7 Corrections: (The following items were deleted from the chart) 23:48 21:12 rn corinne
--- NOTE | 2021-10-18 21:26 | RAD REPORT ---
EXAM DESCRIPTION: CTAbdomen Pelvis W Contrast - 10/18/2021 9:16 pm CLINICAL HISTORY: Abdominal pain. suprapubic catheter leaking, complication COMPARISON: No comparisons TECHNIQUE: Biphasic CT imaging of the abdomen and pelvis was performed with 100 ml non-ionic IV cont rast. All CT scans are performed using dose optimization technique as appropriate and may include automated exposure control or mA/KV adjustment according to patient size. FINDINGS: The lung bases are clear.Small hiatal hernia. The liver, spleen, pancreas, adrenal glands and kidneys are within normal limits. 5.2 cm left renal c yst is present. No bowel obstruction, free air, free fluid or abscess. Moderate stool is retained in the colon. The a ppendix is normal. No evidence of significant lymphadenopathy. Suprapubic catheter is in expected place. Balloon is within the anterior aspect of the bladder. Mild lumbosacral degenerative changes. IMPRESSION: No acute intra-abdominal or pelvic finding.
[2021-10-18] MEDS ORDERED: CEFTRIAXONE 1000 MG/VIAL ONE (21:45)
--- NOTE | 2021-10-18 22:07 | P.HP ---
Certification for Inpatient Patient admitted to: Inpatient With expected LOS: <2 Midnights Patient will require the following post-hospital care: None Practitioner: I am a practitioner with admitting privileges, knowledge of patient current condition, hospital course, and medical plan of care. Services: Services provided to patient in accordance with Admission requirements found in Title 42 Section 412.3 of the Code of Federal Regulations Patient History Date of Service: 10/18/21 Reason for admission: AMS/UTI History of Present Illness: Patient is a 66 y/o male with PMH of HTN, hypothyroidism, MR with indwelling suprapubic catheter who presented to the ED via EMS from long term who reports that he was tugging at his catheter and acting more confused than usual. Workup revealed WBC 11, Na 132, procal 0.07, and urine positive for UTI. CT abdomen pelvis negative for acute findings. His catheter was irrigated, bag changed, and started on rocephin. Upon my assessment, patient is oriented only to self although unsure of his baseline and he does have MR diagnosis. He denies any pain. ED provider wishes to admit patient for further evaluation and treatment. Allergies tuberculin,PPD,multi-puncture Allergy (Verified 05/11/21 12:57) Rash Home medications list reviewed: Yes Home Medications: Acetaminophen 650 mg PO Q4HP PRN 02/16/21 Bismuth Subsalicylate [Bismatrol] 262 mg PO PRN PRN 02/16/21 Calcium Carbonate [Oyster Shell Calcium] 500 mg PO DAILY 02/16/21 Clomipramine HCl 75 mg PO BEDTIME 02/16/21 Cranberry Fruit Concentrate [Azo Cranberry] 125 mg PO DAILY 02/16/21 Cyanocobalamin (Vitamin B-12) [Vitamin B-12] 3,000 mcg PO DAILY 02/16/21 Fluvoxamine Maleate 100 mg PO TID 02/16/21 Icosapent Ethyl [Vascepa] 1 gm PO BID 02/16/21 Levothyroxine [Synthroid*] 50 mcg PO [id number] 02/16/21 Lisinopril/Hydrochlorothiazide [Lisinopril-Hctz 10-12.5 mg Tab] 1 each PO DAILY 02/16/21 Loratadine 10 mg PO DAILYPRN PRN 02/16/21 Mag Hydroxide 8% [Milk Of Magnesia*] 30 ml PO DAILYPRN PRN 02/16/21 Metformin ER [Glucophage ER*] 1,000 mg PO BREAKFAST 02/16/21 Metformin ER [Glucophage ER*] 500 mg PO DAILY AT SUPPER 02/16/21 Tamsulosin HCl 0.4 mg PO DAILY 02/16/21 diphenhydrAMINE HCl [Diphenhydramine HCl] 25 - 50 mg PO PRN PRN 02/16/21 guaiFENesin [Guaifenesin] 100 mg PO Q4HP PRN 02/16/21 - Past Medical/Surgical History Diabetic: No -: Hypertension -: Hypothyroidism Past Surgical History: Patient denies surgical history - Family History Father -: Other (see notes) (unable to obtain) - Social History Smoking Status: Never smoker Alcohol use: No CD- Drugs: No Caffeine use: No Place of Residence: [facility] Review of Systems Unremarkable Physical Examination - Physical Exam General: Alert, In no apparent distress, Oriented x1 HEENT: Atraumatic, PERRLA, Mucous membr. moist/pink, EOMI, Sclerae nonicteric Neck: Supple, 2+ carotid pulse no bruit, No LAD, Without JVD or thyroid abnormality Respiratory: Clear to auscultation bilaterally, Normal air movement Cardiovascular: Regular rate/rhythm, Normal S1 S2 Gastrointestinal: Normal bowel sounds, No tenderness Musculoskeletal: No tenderness Integumentary: No rashes Neurological: Normal strength at 5/5 x4 extr, Normal tone, Normal affect Urinary: Suprapubic catheter (leaking minimally, no purulence) - Studies Laboratory Data (last 24 hrs) 10/18/21 19:51: Sodium 132 L, Potassium 4.5, BUN 27 H, Creatinine 1.11, Glucose 96 10/18/21 19:51: WBC 11.3 H, Hgb 11.8 L, Hct 36.2 L, Plt Count 442 H Assessment and Plan - Problems (Diagnosis) (1) Altered mental status Current Visit: Yes Status: Acute Qualifiers: Altered mental status type: unspecified Qualified Code(s): R41.82 - Altered mental status, unspecified (2) UTI (urinary tract infection) Current Visit: Yes Status: Acute Qualifiers: Urinary tract infection type: catheter-associated UTI Indwelling urinary catheter type: cystostomy catheter Encounter type: initial encounter Qualified Code(s): T83.510A - Infection and inflammatory reaction due to cystostomy catheter, initial encounter; N39.0 - Urinary tract infection, site not specified (3) Hypertension Current Visit: No Status: Acute Qualifiers: Hypertension type: primary hypertension Qualified Code(s): I10 - Essential (primary) hypertension (4) Hypothyroidism Current Visit: No Status: Chronic Qualifiers: Hypothyroidism type: acquired Qualified Code(s): E03.9 - Hypothyroidism, unspecified (5) Mental and behavioral problem in adult Current Visit: Yes Status: Chronic - Plan -[facility] reports that patient was acting more confused than usual. He is currently oriented x 1. Unsure of his baseline as patient does have diagnosis of MR. Will monitor. -Rocephin started in the ED. Continue -Urine culture sent -IV fluids at 75 cc/hr -reconcile and continue home medications -Lovenox for VTE ppx Discharge Plan: [facility] Plan to discharge in: 48 Hours - Advance Directives Does patient have a Living Will: No Does patient have a Durable POA for Healthcare: No - Code Status/Comfort Care Code Status Assessed: Yes (Full) Critical Care: No Time Spent Managing Pts Care (In Minutes): 50
[2021-10-19] MEDS ORDERED: ONDANSETRON 4 MG/2 ML VIAL IV PRN (00:38)
[2021-10-19] MEDS ORDERED: ACETAMINOPHEN 500 MG TAB PO PRN (00:38)
[2021-10-19] MEDS: NA CHLORIDE 0.9% 1,000 ML IV SCH ×2 (01:31→17:09)
[2021-10-19 01:52] LABS: Urine Appearance Clear (Clear); Urine Bilirubin Negative (Negative); Urine Blood 1+ (Negative); Urine Color Yellow (Yellow); Urine Glucose Negative (Negative); Urine Protein 1+ (Negative); Urine Urobilinogen 0.2 mg/dL (0.2-1.0)
[2021-10-19 01:54] LABS: Urine Microscopic Reflex ORDER UMIC
[2021-10-19 02:41] VITALS: BMI 33.0
[2021-10-19 02:47] LABS: Urine Bacteria >50 /HPF (NONE SEEN); Urine Mucus 1+ /HPF (NONE SEEN)
[2021-10-19 03:42] LABS: Absolute Lymphocytes (CBC) 2.2 K/uL (0.7-4.9); Hematocrit 33.3 % (39.6-49.0); Lymphocytes % 21.3 % (15.3-44.8); MPV 6.2 fL (7.6-11.3); RBC Red Blood Cell Count 4.08 M/uL (4.33-5.43)
[2021-10-19 03:59] LABS: Phosphorus 3.5 mg/dL (2.5-4.9); Potassium 4.1 mmol/L (3.5-5.1)
[2021-10-19] MEDS: CEFTRIAXONE 1,000 MG in NA CHLORIDE 0.9% 50 ML IVPB SCH (09:22)
[2021-10-19] MEDS: ENOXAPARIN 40 MG/0.4 ML SQ SCH (09:22)
[2021-10-19] MEDS ORDERED: ACETAMINOPHEN 325 MG TABLET PO PRN (15:26)
[2021-10-19] MEDS ORDERED: MAGNESIUM HYDROXIDE 8% 30 ML PO PRN (15:26)
[2021-10-19] MEDS ORDERED: LORATADINE 10 MG TAB PO PRN (15:26)
[2021-10-19] MEDS ORDERED: BISMUTH SUBSALICYL 262MG/15ML-240 ML BTL PO PRN ×2 (15:26→16:00)
[2021-10-19] MEDS ORDERED: guaiFENesin 100 MG/5 ML UCUP PO PRN (15:26)
--- NOTE | 2021-10-19 15:28 | P.PN ---
Subjective Date of Service: 10/19/21 Chief Complaint: AMS/UTI Patient has no new complaint. He appeared confused. No fever. His oral intake has been good. Physical Examination - Vital Signs Temperature: 98.3 F Blood Pressure: 109/58 Pulse: 82 Respirations: 19 Pulse Ox (%): 97 - Physical Exam General: Confused, Other (Awake) HEENT: Mucous membr. moist/pink Neck: JVD not distended Respiratory: Clear to auscultation bilaterally, Normal air movement Cardiovascular: No edema, Regular rate/rhythm, Normal S1 S2 Gastrointestinal: Soft and benign, Non-distended, No tenderness Musculoskeletal: No swelling Integumentary: No rashes Neurological: Normal speech, Other (No focal motor deficit) Urinary: Suprapubic catheter - Studies Laboratory Data (last 24 hrs) 10/18/21 19:51: Sodium 132 L, Potassium 4.5, BUN 27 H, Creatinine 1.11, Glucose 96 10/18/21 19:51: WBC 11.3 H, Hgb 11.8 L, Hct 36.2 L, Plt Count 442 H Assessment And Plan - Current Problems (Diagnosis) (1) Metabolic encephalopathy Current Visit: Yes Status: Acute (2) UTI (urinary tract infection) Current Visit: Yes Status: Acute Qualifiers: Urinary tract infection type: catheter-associated UTI Indwelling urinary catheter type: cystostomy catheter Encounter type: initial encounter Qualified Code(s): T83.510A - Infection and inflammatory reaction due to cystostomy catheter, initial encounter; N39.0 - Urinary tract infection, site not specified (3) Dysfunctional voiding of urine Current Visit: No Status: Acute (4) Hypothyroidism Current Visit: No Status: Chronic Qualifiers: Hypothyroidism type: acquired Qualified Code(s): E03.9 - Hypothyroidism, unspecified (5) Diabetes mellitus type 2 in obese Current Visit: Yes Status: Acute - Plan Patient baseline mental status is unknown. He is currently interactive though appears confused. Continue IV antibiotics Follow urine culture. Will discuss with Dr. Fowler regarding need for suprapubic catheter change. IV hydration Diet as tolerated. Continue home dose Synthroid. Hold metformin Manage blood sugar with insulin sliding scale.
[2021-10-19] MEDS: icosapent ethyL 1 GM CAP PO SCH (17:07)
[2021-10-19] MEDS: CLOMIPRAMINE HCL 75 MG PO SCH (21:00)
[2021-10-19] MEDS: FLUVOXAMINE MALEATE 100 MG PO SCH (21:00)
[2021-10-20 03:38] LABS: Absolute Lymphocytes (CBC) 2.4 K/uL (0.7-4.9); Lymphocytes % 26.1 % (15.3-44.8); MPV 5.8 fL (7.6-11.3); RBC Red Blood Cell Count 4.09 M/uL (4.33-5.43)
[2021-10-20] MEDS: NA CHLORIDE 0.9% 1,000 ML IV SCH ×2 (04:57→16:04)
[2021-10-20] MEDS: CALCIUM CARBONATE 500 MG TAB PO SCH (08:58)
[2021-10-20] MEDS: lisinopriL 10 MG TAB PO SCH (08:58)
[2021-10-20] MEDS: CEFTRIAXONE 1,000 MG in NA CHLORIDE 0.9% 50 ML IVPB SCH (09:00)
[2021-10-20] MEDS ORDERED: HOME MED 1 EA UNK (Lisinopril/Hydrochlorothiazide [Lisinopril-Hctz 10-12.5 Mg Tab] Tablet) PO SCH (09:00)
[2021-10-20] MEDS: CYANOCOBALAMIN 3000 MCG PO SCH (09:00)
[2021-10-20] MEDS: hydroCHLOROthiazide 12.5 MG CAP PO SCH (09:00)
[2021-10-20] MEDS: icosapent ethyL 1 GM CAP PO SCH ×2 (09:00→16:04)
[2021-10-20] MEDS: ENOXAPARIN 40 MG/0.4 ML SQ SCH (09:00)
[2021-10-20] MEDS: FLUVOXAMINE MALEATE 100 MG PO SCH ×3 (09:00→20:32)
--- NOTE | 2021-10-20 11:02 | P.PN ---
Subjective Date of Service: 10/20/21 Chief Complaint: AMS/UTI Patient has no new complaint. No fever. His oral intake has been good. Physical Examination - Vital Signs Temperature: 97.0 F Blood Pressure: 119/64 Pulse: 77 Respirations: 14 Pulse Ox (%): 95 - Physical Exam General: In no apparent distress HEENT: Mucous membr. moist/pink Neck: JVD not distended Respiratory: Clear to auscultation bilaterally, Normal air movement Cardiovascular: No edema, Regular rate/rhythm, Normal S1 S2 Gastrointestinal: Normal bowel sounds, Soft and benign, Non-distended Musculoskeletal: No swelling Integumentary: No rashes Neurological: Normal strength at 5/5 x4 extr Urinary: Suprapubic catheter Assessment And Plan - Current Problems (Diagnosis) (1) Metabolic encephalopathy Current Visit: Yes Status: Acute (2) UTI (urinary tract infection) Current Visit: Yes Status: Acute Qualifiers: Urinary tract infection type: catheter-associated UTI Indwelling urinary catheter type: cystostomy catheter Encounter type: initial encounter Qualified Code(s): T83.510A - Infection and inflammatory reaction due to cystostomy catheter, initial encounter; N39.0 - Urinary tract infection, site not specified (3) Dysfunctional voiding of urine Current Visit: No Status: Acute (4) Hypothyroidism Current Visit: No Status: Chronic Qualifiers: Hypothyroidism type: acquired Qualified Code(s): E03.9 - Hypothyroidism, unspecified (5) Diabetes mellitus type 2 in obese Current Visit: Yes Status: Acute - Plan Patient baseline mental status is unknown. He is at baseline. He appears to be in good mood and engaging. Urine culture is growing gram-negative rods. Patient is high risk for multidrug-resistant infection. Follow urine culture for organism identification and antibiotic sensitivity. Continue IV antibiotics Will discuss with Dr. Fowler regarding need for suprapubic catheter change. IV hydration Diet as tolerated. Continue home dose Synthroid. Hold metformin Manage blood sugar with insulin sliding scale.
[2021-10-20] MEDS: CLOMIPRAMINE HCL 75 MG PO SCH (20:32)
[2021-10-20 23:22] VITALS: O2SAT 100
[2021-10-21] MEDS: NA CHLORIDE 0.9% 1,000 ML IV SCH ×2 (04:22→16:40)
[2021-10-21] MEDS: FLUVOXAMINE MALEATE 100 MG PO SCH ×3 (09:00→21:00)
[2021-10-21] MEDS: CYANOCOBALAMIN 3000 MCG PO SCH (09:00)
[2021-10-21] MEDS: icosapent ethyL 1 GM CAP PO SCH ×2 (09:03→16:39)
[2021-10-21] MEDS: CALCIUM CARBONATE 500 MG TAB PO SCH (09:03)
[2021-10-21] MEDS: lisinopriL 10 MG TAB PO SCH (09:04)
[2021-10-21] MEDS: ENOXAPARIN 40 MG/0.4 ML SQ SCH (09:04)
[2021-10-21] MEDS: hydroCHLOROthiazide 12.5 MG CAP PO SCH (09:04)
[2021-10-21] MEDS: CEFTRIAXONE 1,000 MG in NA CHLORIDE 0.9% 50 ML IVPB SCH (09:05)
--- NOTE | 2021-10-21 10:14 | P.PN ---
Subjective Date of Service: 10/21/21 Chief Complaint: AMS/UTI Patient has no new complaint. No fever. He appears to be in a good mood. Physical Examination - Vital Signs Temperature: 98.8 F Blood Pressure: 119/69 Pulse: 75 Respirations: 18 Pulse Ox (%): 94 - Physical Exam General: In no apparent distress HEENT: Mucous membr. moist/pink Respiratory: Clear to auscultation bilaterally, Normal air movement Cardiovascular: No edema, Regular rate/rhythm, Normal S1 S2 Gastrointestinal: Soft and benign, Non-distended Musculoskeletal: No swelling, No tenderness Integumentary: No rashes Neurological: Normal speech, Normal strength at 5/5 x4 extr Urinary: Suprapubic catheter - Studies Microbiology Data (last 24 hrs): 10/18/21 19:51 Catheterized Urine [place] Count - Final >100,000 CFU/ML. 10/18/21 19:51 Catheterized Urine - Final Providencia Stuartii Gram Neg Cain Assessment And Plan - Current Problems (Diagnosis) (1) Metabolic encephalopathy Current Visit: Yes Status: Acute (2) UTI (urinary tract infection) Current Visit: Yes Status: Acute Qualifiers: Urinary tract infection type: catheter-associated UTI Indwelling urinary catheter type: cystostomy catheter Encounter type: initial encounter Qualified Code(s): T83.510A - Infection and inflammatory reaction due to cystostomy catheter, initial encounter; N39.0 - Urinary tract infection, site not specified (3) Dysfunctional voiding of urine Current Visit: No Status: Acute (4) Hypothyroidism Current Visit: No Status: Chronic Qualifiers: Hypothyroidism type: acquired Qualified Code(s): E03.9 - Hypothyroidism, unspecified (5) Diabetes mellitus type 2 in obese Current Visit: Yes Status: Acute - Plan AMS resolved. He appears to be in good mood and engaging and likely at baseline. Urine culture is growing providentia sensitive to Rocephin. Continue IV Rocephin. Patient to complete 7 days of treatment. He will need PICC line for outpatient IV antibiotics. IV hydration Diet as tolerated. Continue home dose Synthroid. Metformin is on hold. Blood sugar within normal range Continue insulin sliding scale.
[2021-10-21] MEDS: CLOMIPRAMINE HCL 75 MG PO SCH (21:00)
[2021-10-22] MEDS: NA CHLORIDE 0.9% 1,000 ML IV SCH (05:53)
[2021-10-22] MEDS: CEFTRIAXONE 1,000 MG in NA CHLORIDE 0.9% 50 ML IVPB SCH (08:12)
[2021-10-22] MEDS: icosapent ethyL 1 GM CAP PO SCH ×2 (08:13→16:25)
[2021-10-22] MEDS: lisinopriL 10 MG TAB PO SCH (08:13)
[2021-10-22] MEDS: CYANOCOBALAMIN 3000 MCG PO SCH (08:14)
[2021-10-22] MEDS: hydroCHLOROthiazide 12.5 MG CAP PO SCH (08:14)
[2021-10-22] MEDS: CALCIUM CARBONATE 500 MG TAB PO SCH (08:14)
[2021-10-22] MEDS: ENOXAPARIN 40 MG/0.4 ML SQ SCH (08:14)
[2021-10-22] MEDS: FLUVOXAMINE MALEATE 100 MG PO SCH ×3 (08:15→21:00)
--- NOTE | 2021-10-22 11:00 | P.PN ---
Subjective Date of Service: 10/22/21 Chief Complaint: AMS/UTI Patient has no new complaint. No fever. He is at baseline. Physical Examination - Vital Signs Temperature: 97.7 F Blood Pressure: 124/65 Pulse: 82 Respirations: 18 Pulse Ox (%): 97 - Physical Exam General: Alert, In no apparent distress HEENT: Mucous membr. moist/pink Neck: JVD not distended Respiratory: Clear to auscultation bilaterally, Normal air movement Cardiovascular: No edema, Regular rate/rhythm, Normal S1 S2 Gastrointestinal: Normal bowel sounds, Soft and benign, Non-distended, No tenderness Musculoskeletal: No swelling Integumentary: No rashes, No cyanosis Neurological: Normal speech, Normal strength at 5/5 x4 extr Urinary: Suprapubic catheter - Studies Microbiology Data (last 24 hrs): 10/18/21 19:51 Catheterized Urine [place] Count - Final >100,000 CFU/ML. 10/18/21 19:51 Catheterized Urine - Final Providencia Stuartii Gram Neg Cain Assessment And Plan - Current Problems (Diagnosis) (1) Metabolic encephalopathy Current Visit: Yes Status: Acute (2) UTI (urinary tract infection) Current Visit: Yes Status: Acute Qualifiers: Urinary tract infection type: catheter-associated UTI Indwelling urinary catheter type: cystostomy catheter Encounter type: initial encounter Qualified Code(s): T83.510A - Infection and inflammatory reaction due to cystostomy catheter, initial encounter; N39.0 - Urinary tract infection, site not specified (3) Dysfunctional voiding of urine Current Visit: No Status: Acute (4) Hypothyroidism Current Visit: No Status: Chronic Qualifiers: Hypothyroidism type: acquired Qualified Code(s): E03.9 - Hypothyroidism, unspecified (5) Diabetes mellitus type 2 in obese Current Visit: Yes Status: Acute - Plan AMS resolved. He appears to be in good mood and engaging. He is at baseline. Urine culture is growing providentia sensitive to Rocephin. Continue IV Rocephin. Patient to complete 710 days of treatment. He will need PICC line for outpatient IV antibiotics. Urology-Dr. Fowler consulted for suprapubic catheter change. Patient was scheduled to have the catheter changed on November 01. Discontinue IV fluid. Patient with good oral intake. Continue home dose Synthroid. Metformin is on hold. Blood sugar within normal range Continue insulin sliding scale.
--- NOTE | 2021-10-22 18:30 | RAD REPORT ---
EXAM DESCRIPTION: RAD - Chest Single View - 10/22/2021 5:51 pm CLINICAL HISTORY: PICC line placement COMPARISON: None. FINDINGS: Portable chest was obtained following placement of a left upper extremity PICC line. The c atheter tip is in the distal SVC.
[2021-10-22] MEDS: CLOMIPRAMINE HCL 75 MG PO SCH (21:00)
[2021-10-23 05:49] LABS: Hematocrit 31.9 % (39.6-49.0)
[2021-10-23 05:57] LABS: Potassium 3.8 mmol/L (3.5-5.1)
--- NOTE | 2021-10-23 07:14 | P.PN ---
Date of Service: 10/23/21 Subjective: no new complaints feels slightly better ROS: 10 point ROS as noted above, otherwise negative Physical exam GEN: Alert, oriented, NAD HEENT: Normal conjunctiva, sclera anicteric CV: Regular rate and rhythm, no edema Pulm: Nonlabored respirations on room air ABD: Soft, nontender, nondistended, suprapubic catheter in place Integumentary: No rashes Problem List Acute metabolic encephalopathy secondary to UTI UTI, with indwelling suprapubic catheter Hypothyroidism Intellectual disability DM2 Slowly improving, mentation improved Urine culture growing [place] Blanquita, sensitive to Rocephin PICC line placed, patient to complete 7-10 days of IV antibiotics Urology was consulted, replace suprapubic catheter on 10/22 Improved p.o. intake, IV fluids DC'd on 10/22 Continue home medications Leukocytosis and heart rate slightly increased today, hyponatremia remains mildly low repeat labs in AM code: full dispo: SNF, tomorrow pending improvement of leukocytosis, hyponatremia Time Spent Managing Pts Care (In Minutes): 35
[2021-10-23] MEDS: icosapent ethyL 1 GM CAP PO SCH ×2 (08:10→16:29)
[2021-10-23] MEDS: CALCIUM CARBONATE 500 MG TAB PO SCH (08:10)
[2021-10-23] MEDS: lisinopriL 10 MG TAB PO SCH (08:10)
[2021-10-23] MEDS: hydroCHLOROthiazide 12.5 MG CAP PO SCH (08:11)
[2021-10-23] MEDS: ENOXAPARIN 40 MG/0.4 ML SQ SCH (08:11)
[2021-10-23] MEDS: CEFTRIAXONE 1,000 MG in NA CHLORIDE 0.9% 50 ML IVPB SCH (08:12)
[2021-10-23] MEDS: FLUVOXAMINE MALEATE 100 MG PO SCH ×3 (08:13→21:00)
[2021-10-23] MEDS: CYANOCOBALAMIN 3000 MCG PO SCH (08:13)
--- NOTE | 2021-10-23 14:06 | P.CNS ---
Date of Consult: 10/22/21 66yo developmentally delayed gentleman, well-known to me, with h/o genital chordee and hypospadias, who developed progressive urinary retention associated with voiding dysfunction requiring catheter decompression. Because he frequently would traumatically dislodge the urethral Macario catheter by pulling it out with the balloon inflated, which resulted in further progression of a traumatic hypospadias requiring eventual suprapubic catheter placement. This was done on 2 separate occasions operatively because he pulled these catheters out as well, and a third time, I was able to dilate the tract and get another catheter back in. He has now been admitted to the hospital because of apparent increased confusion and delirium, presumptively due to a UTI. I was consulted to evaluate and exchange the SP tube. Exam: Patient alert and awake but in no acute distress His orientation on my initial visit did seem to be less than his baseline, but on my second visit, he was at his baseline cognitively No dyspnea Abd soft and NT Genitalia with hypospadias into the scrotum but no erythema or crepitus noted SP tube in place and draining mildly cloudy urine into attached leg bag Able to move all extremities though some apparent injury to his right LE Bladder Irrigation and Suprapubic Catheter exchange procedure note: Using a 60cc catheter-tipped syringe and some NS, I irrigated his bladder without any significant debris noted. I then left his bladder filled with 120cc NS, and I removed the indwelling catheter after deflating the balloon of ~10cc fluid. I then replaced a new 18Fr catheter into his bladder with ease and instilled 10cc sterile water into the balloon. Clear fluid did efflux. He tolerated the procedure well and without obvious complication. The catheter was connected to a floor bag and a cath secure was used to secure the catheter in place. A/Recs: 66yo developmentally delayed gentleman, well-known to me, with h/o genital chordee, traumatic hypospadias, urinary retention d/t voiding dysfunction requiring catheter decompression with SP tube exchanged today since admitted with suspected complicated UTI causing AMS. - continue antimicrobial therapy as indicated - follow up with me in urology clinic in 3-6 months for surveillance culture, or sooner (within 6 weeks) if SP catheter exchange required and not done by visiting nursing
[2021-10-23] MEDS: CLOMIPRAMINE HCL 75 MG PO SCH (21:00)
[2021-10-24 05:52] LABS: Hematocrit 32.6 % (39.6-49.0); MPV 5.8 fL (7.6-11.3); RBC Red Blood Cell Count 4.06 M/uL (4.33-5.43)
[2021-10-24 06:13] LABS: Magnesium 1.9 mg/dL (1.8-2.4); Potassium 3.9 mmol/L (3.5-5.1)
--- NOTE | 2021-10-24 06:49 | P.PN ---
Date of Service: 10/24/21 Subjective: no acute events overnight patient denies any new symptoms leukocytosis remains slightly elevated sodium decreased ROS: 10 point ROS as noted above, otherwise negative Physical exam GEN: Alert, orientedx2, NAD HEENT: Normal conjunctiva, sclera anicteric CV: Regular rate and rhythm, no edema Pulm: Nonlabored respirations on room air ABD: Soft, nontender, nondistended, suprapubic catheter in place Integumentary: No rashes Problem List Acute metabolic encephalopathy secondary to UTI UTI, with indwelling suprapubic catheter Hyponatremia Hypothyroidism Intellectual disability DM2, non-insulin dependent Slowly improving, mentation improved, seems to be near /at baseline Urine culture growing [place] Blanquita, sensitive to Rocephin, but resistant to other cephalosporins/penicillins. switch to meropenem given persistent leukocytosis PICC line placed, patient to complete 7 more days of IV antibiotics Urology was consulted, replaced suprapubic catheter on 10/22 Improved p.o. intake, IV fluids DC'd on 10/22, sodium downtrended, nephro consulted, restarted IVF on 10/24 hold HCTZ, possible cause of hyponatremia Continue home medications repeat labs in AM code: full dispo: SNF, tomorrow pending improvement of leukocytosis, hyponatremia Time Spent Managing Pts Care (In Minutes): 35
[2021-10-24] MEDS: icosapent ethyL 1 GM CAP PO SCH ×2 (08:54→16:59)
[2021-10-24] MEDS: ENOXAPARIN 40 MG/0.4 ML SQ SCH (08:55)
[2021-10-24] MEDS: CEFTRIAXONE 1,000 MG in NA CHLORIDE 0.9% 50 ML IVPB SCH (08:55)
[2021-10-24] MEDS: CALCIUM CARBONATE 500 MG TAB PO SCH (08:56)
[2021-10-24] MEDS: hydroCHLOROthiazide 12.5 MG CAP PO SCH (08:56)
[2021-10-24] MEDS: FLUVOXAMINE MALEATE 100 MG PO SCH ×3 (08:57→20:42)
[2021-10-24] MEDS: CYANOCOBALAMIN 3000 MCG PO SCH (09:00)
[2021-10-24] MEDS: LEVOTHYROXINE SOD 0.025 MG TAB PO SCH (09:03)
[2021-10-24] MEDS: lisinopriL 10 MG TAB PO SCH (09:03)
[2021-10-24] MEDS: Meropenem 1,000 MG in NA CHLORIDE 0.9% 100 ML IV SCH ×2 (12:07→16:58)
[2021-10-24] MEDS: NA CHLORIDE 0.9% 1,000 ML IV SCH (12:07)
[2021-10-24] MEDS ORDERED: POTASSIUM 25 MEQ EFFERV TAB PO ONE (12:23)
[2021-10-24] MEDS ORDERED: MAGNESIUM SULFATE 1 gm IVPB 1 GM/100 ML BAG IV ONE (12:23)
--- NOTE | 2021-10-24 15:31 | CON ---
Date of Consultation: 10/24/2021 The patient was admitted with hyponatremia. Reason For Consultation: Hyponatremia. History Of Present Illness: All the information has been obtained from the record and the nursing as the patient is mentally retarded. This is a pleasant unfortunate 66-year-old gentleman with signifi cant past medical history of hypertension, hypothyroidism, mentally retarded with indwelling suprapub ic catheter, came to the hospital as he on his suprapubic catheter, confused, found to hav e leukocytosis with hyponatremia. For that reason, we have been consulted. Reviewing the record for the patient, the patient currently had marginal hyponatremia with sodium on early 131 and 132. The patient has apparently at home been on lisinopril, hydrochlorothiazide. No other insultin g medications. Hydrochlorothiazide was discontinued. The patient has been stable. Past Medical History: includes; 1.Hypertension. 2.Diabetes. 3.Hypothyroidism. 4.Mentally retarded. Home Medications: Include Tylenol, Bismuth, calcium carbonate, cranberry, fluoxetine, levothyroxine, lisinopril, hydrochlorothiazide, metformin, Flomax, Guanfacine. Past Surgical History: Negative. Family History: None obtainable. Social History: Denied smoking, denied drinking, denied drugs abuse. Review of Systems: None obtainable. Physical Examination: Vital Signs: When I saw the patient; blood pressure 128/63, pulse of 85, afebrile. Chest: Clear to auscultation. Heart: S1, S2. Regular. Abdomen: Soft, nontender. Extremity: No edema. Neuro: Alert. No focality. Confused. Laboratory Data: WBC 12.2, H and H 10.7/32.6. Sodium 129, potassium 3.9, bicarb 29, BUN 11, creatini ne 0.8, calcium 8.5, magnesium 1.9. Current Medications: The patient on include; 1.Loratadine. 2.Meropenem. 3.Lovenox. 4.Calcium carbonate. 5.Lisinopril. 6.Hydrochlorothiazide. Assessment And Plan: 1.Chronic kidney disease, stable on baseline, status post acute kidney injury secondary to prerenal. 2.Hyponatremia, mostly secondary to induced by hydrochlorothiazide. I going to discontinue hydrochl orothiazide, start the patient on gentle hydration given the history of hypothyroidism. We will chec k for TSH and cortisol and we will follow up. 3.Hypertension with the presence of hyponatremia. Continue lisinopril, discontinue hydrochlorothiaz karen. 4.Urinary tract infection. The patient was started on meropenem. We will follow up culture. 5.Hypomagnesemia. We will supplement. 6.Hypokalemia. We will supplement. Thank you, Dr. Castaneda, for allowing us to participate in the care of your patient. ESSENCE Voice ID: [id number] Report ID: [id number]
[2021-10-24 18:24] LABS: Urine Appearance Clear (Clear); Urine Bilirubin Negative (Negative); Urine Blood Negative (Negative); Urine Color Yellow (Yellow); Urine Glucose Negative (Negative); Urine Protein Negative (Negative); Urine Specific Gravity 1.015 (1.005-1.030)
[2021-10-24 18:29] LABS: Urine Microscopic Reflex ORDER UMIC
[2021-10-24 18:31] LABS: UR PROTEIN 31.4 mg/dL (<11.9); Urine Protein/Creatinine Ratio 0.63 ratio (<0.15)
[2021-10-24 18:48] LABS: Urine Bacteria <20 /HPF (NONE SEEN); Urine RBC NONE SEEN /HPF (NONE SEEN)
[2021-10-24] MEDS: CLOMIPRAMINE HCL 75 MG PO SCH (20:42)
[2021-10-25] MEDS: Meropenem 1,000 MG in NA CHLORIDE 0.9% 100 ML IV SCH ×3 (00:21→16:59)
[2021-10-25 04:50] LABS: Hematocrit 31.6 % (39.6-49.0); RBC Red Blood Cell Count 3.91 M/uL (4.33-5.43)
[2021-10-25 05:09] LABS: Albumin 2.5 g/dL (3.4-5.0); Magnesium 1.9 mg/dL (1.8-2.4); Uric Acid 3.5 mg/dL (3.5-7.2)
[2021-10-25 05:12] LABS: Thyroid Stimulating Hormone 3.78 uIU/mL (0.360-3.740)
[2021-10-25] MEDS: LEVOTHYROXINE SOD 0.025 MG TAB PO SCH (05:35)
--- NOTE | 2021-10-25 06:33 | P.PN ---
Date of Service: 10/25/21 Subjective: feeling better no new symptoms/complaints, no pain ROS: 10 point ROS as noted above, otherwise negative Physical exam GEN: Alert, orientedx2, NAD HEENT: Normal conjunctiva, sclera anicteric CV: Regular rate and rhythm, no edema Pulm: Nonlabored respirations on room air ABD: Soft, nontender, nondistended, suprapubic catheter in place Integumentary: No rashes Problem List Acute metabolic encephalopathy secondary to UTI, improved UTI, with indwelling suprapubic catheter Hyponatremia Hypothyroidism Intellectual disability DM2, non-insulin dependent Slowly improving, mentation improved, seems to be near /at baseline Urine culture growing Providencia, sensitive to Rocephin, but resistant to other cephalosporins/penicillins. switched to meropenem given persistent leukocytosis on 10/24 PICC line placed, patient to complete 7 more days of IV antibiotics, from 10/24 Urology was consulted, replaced suprapubic catheter on 10/22 Improved p.o. intake, IV fluids DC'd on 10/22, sodium downtrended, nephro consulted, restarted IVF on 10/24 hold HCTZ, likely cause of hyponatremia; eval for SIADH Continue home medications code: full dispo: SNF, tomorrow pending improvement of hyponatremia / results Time Spent Managing Pts Care (In Minutes): 35
[2021-10-25] MEDS ORDERED: NA CHLORIDE 0.9% 0 ML ONE (08:04)
[2021-10-25] MEDS: FLUVOXAMINE MALEATE 100 MG PO SCH ×3 (09:00→21:00)
[2021-10-25] MEDS: CYANOCOBALAMIN 3000 MCG PO SCH (09:00)
[2021-10-25] MEDS ORDERED: FUROSEMIDE 20 MG/ 2ML VIAL IV ONE (10:00)
[2021-10-25] MEDS ORDERED: Meropenem 1000 MG/VIAL IV ONE (10:36)
[2021-10-25] MEDS: ENOXAPARIN 40 MG/0.4 ML SQ SCH (11:15)
[2021-10-25] MEDS: CALCIUM CARBONATE 500 MG TAB PO SCH (11:15)
[2021-10-25] MEDS: icosapent ethyL 1 GM CAP PO SCH ×2 (11:16→16:59)
[2021-10-25] MEDS: lisinopriL 10 MG TAB PO SCH (11:16)
[2021-10-25] MEDS: NA CHLORIDE 0.9% 1,000 ML IV SCH ×3 (11:16→22:16)
[2021-10-25] MEDS ORDERED: MAGNESIUM SULFATE 1 gm IVPB 1 GM/100 ML BAG IV ONE (12:00)
--- NOTE | 2021-10-25 12:25 | PN ---
Date of Progress Note: 10/25/2021 Subjective: The patient was admitted with UTI, hyponatremia. The patient was started on IV hydratio n. His hyponatremia's presumption was secondary to hydrochlorothiazide intake. After starting IV fl uid, sodium started gradually trending up. In the beginning, we had one over-correction, then after we gave him D5 and we resumed normal saline and continued on appropriate trending up rate. Physical Examination: Vital Signs: When I saw the patient; blood pressure 121/65, pulse of 87, afebrile. The patient had good urine output of 3400 with even balance. Chest: Clear to auscultation. Heart: S1, S2. Regular. Abdomen: Soft, nontender. Extremities: Trace edema. Neuro: Alert, pleasantly confused. No focality. Laboratory Data: WBC 12.3, H and H 10.5/31.6. Sodium 129, potassium 4, bicarb 29, BUN 14, creatinin e 0.7, uric acid 3.5, calcium 8.7, phosphorus of 3, magnesium 1.9. TSH 3.7. Urinalysis; specific gr avity of 1.015. Current Medications: The patient on include meropenem, loratadine, Lovenox, calcium carbonate, lisin opril, Tylenol, levothyroxine, normal saline. Assessment And Plan: 1.Hyponatremia secondary to hydrochlorothiazide use. The only thing again is given the presence of low uric acid, we have elevation in urine sodium that on the presence of hydrochlorothiazide raised t he possibility of possible component of SIADH. So what I am going to do today, I am going to go ahea d and increase normal saline to 100, we will give the patient a single dose of Lasix and we will repe at chemistry 4 hours after. I am going to go ahead and also get urine electrolyte, has been almost 4 8 hours off hydrochlorothiazide, so we will follow up. 2.Hypertension, controlled, optimal. Continue SHANIQUA inhibitor. Please keep holding hydrochlorothiazi de and we will monitor. 3.Hypomagnesemia. We will supplement. 4.Hypokalemia, status post supplement, resolved. 5.Urinary tract infection secondary to gram negative multidrug-resistant. The patient was started o n meropenem. We will follow up. RONNIE/BERNARDO Voice ID: [id number] Report ID: [id number]
[2021-10-25 12:37] LABS: Potassium 4.3 mmol/L (3.5-5.1)
[2021-10-25 16:28] LABS: Urine Appearance Clear (Clear); Urine Bilirubin Negative (Negative); Urine Blood Negative (Negative); Urine Color Yellow (Yellow); Urine Glucose Negative (Negative); Urine Protein Negative (Negative)
[2021-10-25 16:32] LABS: Urine Microscopic Reflex ORDER UMIC
[2021-10-25 16:44] LABS: Urine Bacteria <20 /HPF (NONE SEEN); Urine RBC <5 /HPF (NONE SEEN)
[2021-10-25] MEDS: CLOMIPRAMINE HCL 75 MG PO SCH (21:00)
[2021-10-26] MEDS: Meropenem 1,000 MG in NA CHLORIDE 0.9% 100 ML IV SCH ×2 (00:08→09:19)
[2021-10-26 04:54] LABS: Absolute Lymphocytes (CBC) 1.9 K/uL (0.7-4.9); Hematocrit 30.4 % (39.6-49.0); Lymphocytes % 19.3 % (15.3-44.8); MPV 5.9 fL (7.6-11.3); RBC Red Blood Cell Count 3.74 M/uL (4.33-5.43)
[2021-10-26 05:07] LABS: Albumin 2.3 g/dL (3.4-5.0); Magnesium 1.8 mg/dL (1.8-2.4); Phosphorus 2.9 mg/dL (2.5-4.9); Potassium 3.8 mmol/L (3.5-5.1); Uric Acid 3.8 mg/dL (3.5-7.2)
[2021-10-26] MEDS: LEVOTHYROXINE SOD 0.025 MG TAB PO SCH (06:20)
[2021-10-26] MEDS: CYANOCOBALAMIN 3000 MCG PO SCH (09:00)
[2021-10-26] MEDS: FLUVOXAMINE MALEATE 100 MG PO SCH ×2 (09:00→12:49)
[2021-10-26] MEDS: CALCIUM CARBONATE 500 MG TAB PO SCH (09:20)
[2021-10-26] MEDS: lisinopriL 10 MG TAB PO SCH (09:20)
[2021-10-26] MEDS: ENOXAPARIN 40 MG/0.4 ML SQ SCH (09:20)
[2021-10-26] MEDS: icosapent ethyL 1 GM CAP PO SCH (09:25)
[2021-10-26] MEDS: NA CHLORIDE 0.9% 1,000 ML IV SCH (09:28)
[2021-10-26 13:32] VITALS: BP 146/86; TEMP 97.9
--- NOTE | 2021-10-26 13:36 | P.PN ---
Subjective Date of Service: 10/26/21 Chief Complaint: AMS/UTI Subjective: No new changes Physical Examination - Vital Signs Temperature: 97.9 F Blood Pressure: 146/86 Pulse: 86 Respirations: 20 Pulse Ox (%): 96 - Physical Exam General: In no apparent distress HEENT: Atraumatic, Normocephalic Neck: Supple Respiratory: Other (symmetric chest expansion) Cardiovascular: No rubs, No murmurs Gastrointestinal: Soft and benign, Non-distended Musculoskeletal: No clubbing Integumentary: No warmth Neurological: Normal speech, Normal tone Urinary: Other (no bladder distention) External genitalia: Deferred Rectal: Average, Deferred Assessment And Plan - Plan 1. Hyponatremia secondary to hydrochlorothiazide use. Urine chem c/w high adh state likely 2/2 HCTZ use. Serum Na improved. Advised on adeq po solid food intake. No need to add salt tabs. 2. Hypertension, controlled, optimal. Continue SHANIQUA inhibitor. Avoid thiazide permanently. 3. Hypomagnesemia. Improved. Monitor/replete prn. 4. Hypokalemia. Improved. Monitor/replete prn. 5. Urinary tract infection secondary to gram negative multidrug-resistant. Abx per primary team. 6. Dispo. Ok to dc to SNF.
--- NOTE | 2021-10-28 21:02 | P.DS ---
Admission Date: 10/18/21 Discharge Date: 10/26/21 Disposition: TRANSFER TO LONG-TERM Discharge Condition: GOOD Reason for Admission: AMS/UTI Brief History of Present Illness: 66yo M, PMH: HTN, hypothyroidism, MR, with indwelling suprapubic catheter who presented to ED via EMS from residential where he reprotedly was tugging at his catheter and acting more confused than usual. In the ED, workup consistent with UTI. Hospital Course: Problem List Acute metabolic encephalopathy secondary to UTI, improved UTI, with indwelling suprapubic catheter Hyponatremia secondary to HCTZ use Hypothyroidism Intellectual disability DM2, non-insulin dependent AMS secondary to UTI. Urine culture grew providencia which was sensitive to rocephin, but resistant to other cephalosporins/penicillins. He continued with leukocytosis, so rocephin was changed to merrem. Patient continued to have improvement and resolution of altered mentation and leukocytosis.. He remained afebrile. He was noted to be hyponatremic during his hospitalizaton. Nephrology was consulted. Agreed this was most likely due to HCTZ. This was discontinued and he had improvement of his sodium levels Recommend recheck in ~2-3 days. If decreases, may benefit from salt tabs if not taking much PO intake. Recommend follow up with PCP within 1 week Follow up with nephrology within 1-2 weeks after discharge from [facility] Dr. Fowler, Urology, exchanged suprapubic catheter during this hospitalization. Vital Signs/Physical Exam: Temp Pulse Resp BP Pulse Ox 97.9 F 86 20 146/86 H 96 10/27/21 04:10 10/27/21 04:10 10/27/21 04:10 10/27/21 04:10 10/27/21 04:10 Physical exam GEN: Alert, orientedx2, NAD HEENT: Normal conjunctiva, sclera anicteric CV: Regular rate and rhythm, no edema Pulm: Nonlabored respirations on room air ABD: Soft, nontender, nondistended, suprapubic catheter in place Integumentary: No rashes Laboratory Data at Discharge: WBC 9.9 K/uL (4.3-10.9) D 10/26/21 04:45 Hgb 10.2 g/dL (13.6-17.9) L 10/26/21 04:45 Hct 30.4 % (39.6-49.0) L 10/26/21 04:45 Plt Count 424 K/uL (152-406) H 10/26/21 04:45 Sodium 134 mmol/L (136-145) L 10/26/21 04:45 Potassium 3.8 mmol/L (3.5-5.1) 10/26/21 04:45 BUN 19 mg/dL (7-18) H 10/26/21 04:45 Creatinine 0.81 mg/dL (0.55-1.3) 10/26/21 04:45 Glucose 135 mg/dL (74-106) H 10/26/21 04:45 Uric Acid 3.8 mg/dL (3.5-7.2) 10/26/21 04:45 Phosphorus 2.9 mg/dL (2.5-4.9) 10/26/21 04:45 Magnesium 1.8 mg/dL (1.8-2.4) 10/26/21 04:45 Home Medications: Acetaminophen 650 mg PO Q4HP PRN 02/16/21 Calcium Carbonate [Oyster Shell Calcium] 500 mg PO DAILY 02/16/21 Clomipramine HCl 75 mg PO BEDTIME 02/16/21 Cyanocobalamin (Vitamin B-12) [Vitamin B-12] 3,000 mcg PO DAILY 02/16/21 Fluvoxamine Maleate 100 mg PO TID 02/16/21 Icosapent Ethyl [Vascepa] 1 gm PO BID 02/16/21 Loratadine 10 mg PO DAILYPRN PRN 02/16/21 Mag Hydroxide 8% [Milk Of Magnesia*] 30 ml PO DAILYPRN PRN 02/16/21 Metformin ER [Glucophage ER*] 1,000 mg PO BREAKFAST 02/16/21 Metformin ER [Glucophage ER*] 500 mg PO DAILY AT SUPPER 02/16/21 diphenhydrAMINE HCl [Diphenhydramine HCl] 1 - 2 tab PO Q4HP PRN 02/16/21 guaiFENesin [Guaifenesin] 10 ml PO Q4HP PRN 02/16/21 Bismuth Subsalicylate [Pepto-Bismol] 30 ml PO PRN PRN 10/19/21 Levothyroxine Sodium 25 mcg PO 0600 10/19/21 lisinopriL [Prinivil*] 1 mg PO DAILY tab 10/26/21 Followup: Unknown,U [Primary Care Provider] - Time spent managing pt's care (in minutes): 40
== END 2021-10-26 15:32 | DRG 698 ==
LOC: ER 18:27 → ERHOLD 22:01 → 2ND 10-19 00:35
PROVIDERS: ADMIT Internal Medicine; ATTEND Internal Medicine
PROC: 02HV33Z Insertion of Infusion Device into Superior Vena Cava, Percutaneous Approach (ICD-10-PCS; principal; 2021-10-22)
PROC: 3E04329 Introduction of Other Anti-infective into Central Vein, Percutaneous Approach (ICD-10-PCS; 2021-10-22)
DX: T83.518A Infection and inflammatory reaction due to other urinary catheter, initial encounter (principal); G93.41 Metabolic encephalopathy; N39.0 Urinary tract infection, site not specified; Z16.24 Resistance to multiple antibiotics; Z16.19 Resistance to other specified beta lactam antibiotics; Z16.11 Resistance to penicillins; E87.1 Hypo-osmolality and hyponatremia; B96.89 Other specified bacterial agents as the cause of diseases classified elsewhere; E03.9 Hypothyroidism, unspecified; F70 Mild intellectual disabilities; I10 Essential (primary) hypertension; E11.9 Type 2 diabetes mellitus without complications; N48.89 Other specified disorders of penis; Q54.9 Hypospadias, unspecified; E83.42 Hypomagnesemia; E87.6 Hypokalemia; T50.2X5A Adverse effect of carbonic-anhydrase inhibitors, benzothiadiazides and other diuretics, initial encounter; Z20.822 Contact with and (suspected) exposure to COVID-19
CPT/HCPCS: 36415; 36569; 71045; 74177; 80048; 80069; 81003; 81015; 82570; 82947; 83735; 83930; 83935; 84100; 84132; 84145; 84156; 84300; 84439; 84443; 84550; 85025; 85027; 87040; 87077; 87086; 87088; 87186; 96374; 99285; J1650; J1940; J2185; J3475; J7030; Q9967; U0003

== ENCOUNTER 2021-12-19 14:06 | Inpatient (IN) | payer OTHER ==
[2021-12-19 15:15] LABS: Absolute Lymphocytes (CBC) 1.7 K/uL (0.7-4.9); Hematocrit 32.6 % (39.6-49.0); Lymphocytes % 17.6 % (15.3-44.8); MCV 79.3 fL (80-100); MPV 6.3 fL (7.6-11.3)
[2021-12-19 15:16] LABS: Protime INR 0.99
[2021-12-19 15:30] LABS: Urine Blood 1+ (Negative); Urine Glucose Negative (Negative); Urine Protein 1+ (Negative); Urine Specific Gravity >=1.030 (1.005-1.030)
[2021-12-19 15:33] LABS: Albumin 3.1 g/dL (3.4-5.0); Bilirubin Total 0.1 mg/dL (0.2-1.0); Protein, Total 6.9 g/dL (6.4-8.2)
[2021-12-19 15:49] LABS: Urine Bacteria 20-50 /HPF (<20); Urine Mucus 1+ /HPF (None Seen)
[2021-12-19] MEDS ORDERED: NA CHLORIDE 0.9% 1,000 ML ONE (16:02)
--- NOTE | 2021-12-19 16:10 | ER ---
Nurse's Notes [facility] Name: Wilder Alvarez Age: 66 yrs Sex: Male : 1955 Arrival Date: 12/19/2021 Time: 14:14 Bed 2 Private MD: Diagnosis: Altered mental status, unspecified;UTI/ Urinary tract infection, site not specified;Elevated lactic acid Presentation: 12/19 14:14 Chief complaint: EMS states: he has been on bactrim for a few days due to a UTI and bm7 staff at [facility] states that he has been unable to ambulate which is out of his norm and they feel like he is septic. Coronavirus screen: At this time, unable to obtain information related to travel outside the [place] Ebola Screen: No symptoms or risks identified at this time. Initial Sepsis Screen: Does the patient meet any 2 criteria? Systolic BP < 90 mmHg. Altered Mental Status. Does the patient have a suspected source of infection? Yes: Catheter related infection ([facility]/dialysis/PICC/central line) Risk Assessment: Do you want to hurt yourself or someone else? Patient reports no desire to harm self or others. Onset of symptoms is unknown. Care prior to arrival:. 14:14 Method Of Arrival: EMS: [place] [id number] 14:14 Acuity: [place] 3 bm7 Triage Assessment: 14:18 General: Appears in no apparent distress. comfortable, Behavior is calm, cooperative, 7 Smells of urine. Pain: Denies pain. EENT: No deficits noted. No signs and/or symptoms were reported regarding the EENT system. Neuro: Level of Consciousness is awake, alert, confused, Oriented to none. Cardiovascular: No deficits noted. Respiratory: No deficits noted. GI: No deficits noted. No signs and/or symptoms were reported involving the gastrointestinal system. : suprapubic catheter in place Urine is cloudy. Derm: No deficits noted. No signs and/or symptoms reported regarding the dermatologic system. Musculoskeletal: No deficits noted. No signs and/or symptoms reported regarding the musculoskeletal system. Historical: - Allergies: 14:18 TB shot; bm7 - Home Meds: 14:18 lisinopril-hydrochlorothiazide 10-12.5 mg Oral tab 1 tab once daily for hypertension bm7 [Active]; clomipramine 75 mg Oral cap [Active]; fluvoxamine 100 mg Oral tab three times a day [Active]; Metformin Oral [Active]; VESCEPA 1 GM BY MOUTH TWICE DAILY [Active]; fluvoxamine 100 mg Oral cp24 1 cap three times a day [Active]; - PMHx: 14:18 Hypertensive disorder; Hypothyroidism; MILD MENTAL RETARDATION; Obsessive compulsive bm7 disorder; - Immunization history:: Adult Immunizations up to date. - Social history:: Smoking status: Patient/guardian denies using tobacco products. - Code Status:: unknown. Screenin:04 Abuse screen: Denies threats or abuse. Nutritional screening: No deficits noted. bm7 Tuberculosis screening: No symptoms or risk factors identified. Fall Risk Mental Status-. Sepsis Screening: . Infection: Patient is currently on antibiotics that were not prescribed as prophylaxis. Assessment: 15:04 Reassessment: No changes from previously documented assessment. Patient is alert, 7 oriented x 3, equal unlabored respirations, skin warm/dry/pink. 15:44 Reassessment: Patient and/or family updated on plan of care and expected duration. Pain bm7 level reassessed. Patient is alert, oriented x 3, equal unlabored respirations, skin warm/dry/pink. 15:57 Reassessment: caregiver reports current weight that was measured yesterday at [facility] . 17:40 Reassessment: Patient and/or family updated on plan of care and expected duration. Pain bm7 level reassessed. Patient is alert, oriented x 3, equal unlabored respirations, skin warm/dry/pink. Patient states symptoms have improved. 18:36 Reassessment: Patient and/or family updated on plan of care and expected duration. Pain bm7 level reassessed. Patient is alert, oriented x 3, equal unlabored respirations, skin warm/dry/pink. Vital Signs: 14:14 BP 91 / 60 RA Supine (auto/reg); Pulse 82; Resp 16; Temp 97.1(TE); Pulse Ox 99% on R/A; bm7 15:14 BP 92 / 48; Pulse 74; Resp 16; Pulse Ox 99% on R/A; bm7 15:57 Weight 78.47 kg (R); bm7 16:29 BP 113 / 56; Pulse 76; Resp 16; Pulse Ox 99% on R/A; bm7 17:39 BP 133 / 67; Pulse 80; Resp 18; Pulse Ox 100% on R/A; bm7 18:36 BP 134 / 75; Pulse 78; Resp 16; Pulse Ox 100% on R/A; bm7 18:59 BP 122 / 74; Pulse 79; Resp 16; Pulse Ox 100% on R/A; bm7 21:27 BP 128 / 72; Pulse 76; Resp 17; Temp 97.3; Pulse Ox 100% on R/A; ke1 ED Course: 14:14 Patient arrived in ED. bm7 14:18 Triage completed. bm7 14:18 Arm band placed on left wrist. bm7 14:19 Nelson Montiel DO is Attending Physician. ms3 14:50 No apparent distress. Resting quietly. bm7 14:50 Initial lab(s) drawn, by mi, sent to lab. First set of blood cultures drawn by me, bm7 Urine collected: supra pubic cath EKG done, by veterinary technician. Inserted saline lock: 22 gauge in right wrist, using aseptic technique. Blood collected. 15:04 Patient has correct armband on for positive identification. Placed in gown. Bed in low bm7 position. Call light in reach. Side rails up X2. Adult w/ patient. Client placed on continuous cardiac and pulse oximetry monitoring. NIBP monitoring applied. bus driver/monitor on. 15:44 Warm blanket given. bm7 15:49 Second set of blood cultures drawn by lab staff. bm7 16:08 Ganesh Bradford MD is Hospitalizing Provider. ms3 16:20 Yenni Luis, RN is Primary Nurse. bm7 16:[address] bm7 17:04 CT Head Brain wo Cont In Process Unspecified. EDMS 21:25 No provider procedures requiring assistance completed. Patient admitted, IV remains in ke1 place. Administered Medications: 16:02 Drug: NS 0.9% (30 ml/kg) 30 ml/kg Route: IV; Rate: bolus; Site: right wrist; bm7 17:39 Follow up: IV Status: Completed infusion; IV Intake: 1000ml bm7 18:37 Follow up: IV Status: Completed infusion; IV Intake: 1000ml bm7 16:02 Drug: NS 0.9% (30 ml/kg) 30 ml/kg Route: IV; Rate: bolus; Site: right wrist; bm7 16:39 Drug: Rocephin (cefTRIAXone) 1 grams Route: IV; Rate: calculated rate; Site: right bm7 wrist; 18:37 Follow up: IV Status: Completed infusion bm7 Medication: 18:36 VIS not applicable for this client. bm7 Point of Care Testing: Blood Glucose: 15:47 Blood Glucose: 89 mg/dL; bm7 Ranges: Intake: 17:39 IV: 1000ml; Total: 1000ml. bm7 18:37 IV: 1000ml; Total: 2000ml. bm7 Outcome: 16:09 Decision to Hospitalize by Provider. ms3 21:26 Admitted to Med/surg accompanied by tech. ke1 21:26 Condition: good 21:26 Instructed on 21:35 Patient left the ED. [email or web address] Signatures: Dispatcher [employer] EDMS Nelson Montiel DO DO ms3 Yenni Luis, BENEDICTO DIANE bm7 Melanie Valdes RN RN kd3 Cecilia Weir RN RN ke1
--- NOTE | 2021-12-19 16:10 | EDPHYS ---
Physician Documentation [facility] Name: Wilder Alvarez Age: 66 yrs Sex: Male : 1955 Arrival Date: 12/19/2021 Time: 14:14 Bed 2 Private MD: ED Physician Nelson Montiel HPI: 12/19 15:39 This 66 yrs old Male presents to ER via EMS with complaints of altered mental status. ms3 15:39 The patient presents with decreased responsiveness. Onset: The symptoms/episode ms3 began/occurred yesterday. Possible causes: sepsis, the patient has a known UTI history. Unable to obtain HPI due to altered mental status. Historical: - Allergies: 14:18 TB shot; bm7 - Home Meds: 14:18 lisinopril-hydrochlorothiazide 10-12.5 mg Oral tab 1 tab once daily for hypertension bm7 [Active]; clomipramine 75 mg Oral cap [Active]; fluvoxamine 100 mg Oral tab three times a day [Active]; Metformin Oral [Active]; VESCEPA 1 GM BY MOUTH TWICE DAILY [Active]; fluvoxamine 100 mg Oral cp24 1 cap three times a day [Active]; - PMHx: 14:18 Hypertensive disorder; Hypothyroidism; MILD MENTAL RETARDATION; Obsessive compulsive bm7 disorder; - Immunization history:: Adult Immunizations up to date. - Social history:: Smoking status: Patient/guardian denies using tobacco products. - Code Status:: unknown. ROS: 15:39 Unable to obtain ROS due to altered mental status. ms3 Exam: 15:37 ECG was reviewed by the Attending Physician. ms3 15:39 Head/Face: Normocephalic, atraumatic. Neck: Trachea midline, no cervical ms3 lymphadenopathy. Supple, full range of motion without nuchal rigidity, or vertebral point tenderness. No Meningismus. Chest/axilla: Normal chest wall appearance and motion. Nontender with no deformity. Cardiovascular: Regular rate and rhythm with a normal S1 and S2. No gallops, murmurs, or rubs. Normal PMI, no JVD. No pulse deficits. Respiratory: Lungs have equal breath sounds bilaterally, clear to auscultation and percussion. No rales, rhonchi or wheezes noted. No increased work of breathing, no retractions or nasal flaring. 15:39 Abdomen/GI: Soft, non-tender, with normal bowel sounds. No distension or tympany. No guarding or rebound. No evidence of tenderness throughout. Skin: Warm, dry with normal turgor. Normal color with no rashes, no lesions, and no evidence of cellulitis. Psych: Awake, alert, with orientation to person, place and time. Behavior, mood, and affect are within normal limits. 15:39 Constitutional: The patient appears alert, awake, comfortable, non-diaphoretic, non-toxic, well developed, well hydrated. 15:39 Abdomen/GI: SP catheter in place without surrounding erythema or drainage. Vital Signs: 14:14 BP 91 / 60 RA Supine (auto/reg); Pulse 82; Resp 16; Temp 97.1(TE); Pulse Ox 99% on R/A; bm7 15:14 BP 92 / 48; Pulse 74; Resp 16; Pulse Ox 99% on R/A; bm7 15:57 Weight 78.47 kg (R); bm7 16:29 BP 113 / 56; Pulse 76; Resp 16; Pulse Ox 99% on R/A; bm7 17:39 BP 133 / 67; Pulse 80; Resp 18; Pulse Ox 100% on R/A; bm7 18:36 BP 134 / 75; Pulse 78; Resp 16; Pulse Ox 100% on R/A; bm7 18:59 BP 122 / 74; Pulse 79; Resp 16; Pulse Ox 100% on R/A; bm7 21:27 BP 128 / 72; Pulse 76; Resp 17; Temp 97.3; Pulse Ox 100% on R/A; ke1 MDM: 14:41 Patient medically screened. ms3 15:39 Differential Diagnosis: electrolyte abnormality, sepsis, UTI. ms3 20:31 Data reviewed: vital signs, nurses notes, lab test result(s), EKG, radiologic studies, ms3 and as a result, I will admit patient. 20:31 Data interpreted: Pulse oximetry: on room air is 100 %. Interpretation: normal. ms3 Counseling: I had a detailed discussion with the patient and/or guardian regarding: the historical points, exam findings, and any diagnostic results supporting the discharge/admit diagnosis, lab results, radiology results, the need for outpatient follow up, to return to the emergency department if symptoms worsen or persist or if there are any questions or concerns that arise at home. ED course: Discussed case with Dr Bradford and he accepts patient. All questions answered. Patient remains in stable condition.. 12/20 17:21 Data reviewed: vital signs, nurses notes, lab test result(s), EKG, radiologic studies, ms3 and as a result, I will. Transition of care:. Refusal of service: The patient/guardian displays adequate decision making capability and despite a detailed discussion of alternatives, benefits, risks, and consequences refuses:. 12/19 14:40 Order name: Blood Culture Adult (2) ms3 12/19 14:40 Order name: CBC with Diff; Complete Time: 15:35 ms3 12/19 14:40 Order name: CMP; Complete Time: 15:35 ms3 12/19 14:40 Order name: Lactate; Complete Time: 15:59 ms3 12/19 14:40 Order name: Protime (+inr); Complete Time: 15:35 ms3 12/19 14:40 Order name: Ptt, Activated; Complete Time: 15:35 ms3 12/19 14:40 Order name: Urine Microscopic Only; Complete Time: 15:59 ms3 12/19 15:31 Order name: Urine Dipstick-Ancillary; Complete Time: 15:35 EDMS 12/19 15:52 Order name: Urine Culture EDMS 12/19 15:55 Order name: Glucose, Ancillary Testing; Complete Time: 15:59 EDMS 12/19 16:00 Order name: CT Head Brain wo Cont; Complete Time: 17:34 ms3 12/19 17:47 Order name: SARS RAPID ms3 12/19 19:17 Order name: Lactate Sepsis 2 HR Follow-up EDMS 12/19 14:40 Order name: Accucheck; Complete Time: 15:32 ms3 12/19 14:40 Order name: Cardiac monitoring; Complete Time: 15:04 ms3 12/19 14:40 Order name: EKG - Nurse/Tech; Complete Time: 15:32 ms3 12/19 14:40 Order name: IV Saline Lock - Large Bore; Complete Time: 15:04 ms3 12/19 14:40 Order name: Labs collected and sent; Complete Time: 15:04 ms3 12/19 14:40 Order name: O2 Per Protocol; Complete Time: 15:04 ms3 12/19 14:40 Order name: O2 Sat Monitoring; Complete Time: 15:04 ms3 12/19 14:40 Order name: Urine Dipstick-Ancillary (obtain specimen); Complete Time: 15:32 ms3 EC/20 15:37 Rate is 72 beats/min. Rhythm is regular. QRS [place] is Normal. Clinical impression: ms3 Normal ECG. Interpreted by me. Reviewed by me. Administered Medications: 16:02 Drug: NS 0.9% (30 ml/kg) 30 ml/kg Route: IV; Rate: bolus; Site: right wrist; bm7 17:39 Follow up: IV Status: Completed infusion; IV Intake: 1000ml bm7 18:37 Follow up: IV Status: Completed infusion; IV Intake: 1000ml bm7 16:02 Drug: NS 0.9% (30 ml/kg) 30 ml/kg Route: IV; Rate: bolus; Site: right wrist; bm7 16:39 Drug: Rocephin (cefTRIAXone) 1 grams Route: IV; Rate: calculated rate; Site: right bm7 wrist; 18:37 Follow up: IV Status: Completed infusion bm7 Point of Care Testing: Blood Glucose: 15:47 Blood Glucose: 89 mg/dL; bm7 Ranges: Critical Glucose Levels:Adult <50 mg/dl or >400 mg/dl <40 mg/dl or >180 mg/dl Disposition Summary: 12/19/21 16:09 Hospitalization Ordered Hospitalization Status: Inpatient Admission ms3 Provider: Ganesh Bradford ms3 Location: Telemetry/MedSurg (Inpatient) ms3 Condition: Stable ms3 Problem: new ms3 Symptoms: are unchanged ms3 Bed/Room Type: Standard ms3 Room Assignment: 203(12/19/21 20:43) cg Diagnosis - Altered mental status, unspecified ms3 - UTI/ Urinary tract infection, site not specified ms3 - Elevated lactic acid ms3 Forms: - Medication Reconciliation Form ms3 - SBAR form ms3 Signatures: Dispatcher [employer] Miguel Martinez, SEANC INSTALLATION SPECIALIST-Cla1 Chrissy Rodriguez, RN RN cg Nelson Montiel DO DO ms3 Yenni Luis, RN RN bm7 Corrections: (The following items were deleted from the chart) 20:37 20:31 Data reviewed: vital signs, nurses notes, lab test result(s), EKG, radiologic ms3 studies, ms3 20:43 16:09 ms3 cg 12/20 17:18 12/19 15:39 The patient presents with decreased responsiveness, ms3 ms3
[2021-12-19] MEDS ORDERED: NA CHLORIDE 0.9% 250 ML ONE (16:32)
[2021-12-19] MEDS ORDERED: CEFTRIAXONE 1000 MG/VIAL ONE (16:32)
--- NOTE | 2021-12-19 17:16 | RAD REPORT ---
EXAM DESCRIPTION: CT - Head Brain Wo Cont - 12/19/2021 5:03 pm CLINICAL HISTORY: altered mental status COMPARISON: No comparisons TECHNIQUE: All CT scans are performed using dose optimization technique as appropriate and may inclu de automated exposure control or mA/KV adjustment according to patient size. FINDINGS: No intracranial hemorrhage, hydrocephalus or extra-axial fluid collection.No areas of brai n edema or evidence of midline shift. The paranasal sinuses and mastoids are clear. The calvarium is intact. IMPRESSION: No acute intracranial abnormality.
[2021-12-19 19:35] LABS: SARS-CoV-2 Antigen Rapid Res Negative (Negative)
--- NOTE | 2021-12-19 19:44 | P.HP ---
Certification for Inpatient Patient admitted to: Inpatient With expected LOS: >2 Midnights Patient will require the following post-hospital care: None Practitioner: I am a practitioner with admitting privileges, knowledge of patient current condition, hospital course, and medical plan of care. Services: Services provided to patient in accordance with Admission requirements found in Title 42 Section 412.3 of the Code of Federal Regulations <Miguel Haque - Last Filed: 12/19/21 19:40> Patient History Date of Service: 12/19/21 Reason for admission: UTI, hypotension History of Present Illness: 66-year-old male with history of hypertension, hypothyroidism, mild mental retardation presents to the emergency department for weakness. He resides in a assisted they became concerned because he had been unable to ambulate which is out of his norm, he has been on Bactrim for urinary tract infection recently as well. Patient was evaluated in the emergency department he was initially mildly hypotensive with blood pressure of 91/60 followed by 92/48 his labs were significant for white blood cell count of 9.5 microcytic anemia, lactic acidosis with lactate of 4.3 creatinine 1.58 GFR 25 sodium 135 urinalysis with trace leuk esterase urine bacteria 20-50 on microscopic evaluation patient does have suprapubic catheter in place. Patient did not meet any the SIRS criteria he does appear very dry suspect the hypotension and lactic acidosis are from dehydration at this point in time. Patient was started on Rocephin in the emergency department will admit for further evaluation and management of UTI, lactic acidosis. - Past Medical/Surgical History Diabetic: No -: Hypertension -: Hypothyroidism -: Mental retardation -: Suprapubic catheter Psychosocial/ Personal History: Reportedly resides in a assisted - Family History Father History Unknown: Yes - Social History Smoking Status: Unknown if ever smoked Alcohol use: No CD- Drugs: No Caffeine use: No Place of Residence: Home <Miguel Haque - Last Filed: 12/19/21 19:40> Date of Service: 12/20/21 <Ganesh Bradford - Last Filed: 12/20/21 18:27> Allergies tuberculin,PPD,multi-puncture Allergy (Verified 05/11/21 12:57) Rash Home Medications: Calcium Carbonate [Oyster Shell Calcium] 1 tab PO DAILY 12/20/21 Clomipramine HCl 2 cap PO BEDTIME 12/20/21 Clomipramine HCl 3 cap PO TID 12/20/21 Cyanocobalamin (Vitamin B-12) [Vitamin B-12] 1 tab PO DAILY 12/20/21 Fluvoxamine Maleate 1 tab PO TID 12/20/21 LORazepam [Ativan] 1 tab PO DAILY WITH BREAKFAST 12/20/21 LORazepam [Ativan] 1 tab PO NOON 12/20/21 LORazepam [Lorazepam] 2 mg PO PRN 12/20/21 Levothyroxine Sodium [Levothyroxine] 1 tab PO DAILY 12/20/21 Lisinopril/Hydrochlorothiazide [Lisinopril-Hctz 10-12.5 mg Tab] 1 tab PO DAILY 12/20/21 Metformin ER [Glucophage ER] 1 tab PO DAILY AT SUPPER 12/20/21 Metformin ER [Glucophage ER] 1 tab PO DAILY WITH BREAKFAST 12/20/21 Nitrofuran Macro [Macrodantin*] 1 cap PO BEDTIME 12/20/21 Rosuvastatin [Crestor*] 1 tab PO DAILY 12/20/21 Sulfamethoxazole/Trimethoprim [Sulfamethoxazole-Tmp Ds Tablet] 1 tab PO BID 12/20/21 Tamsulosin [Flomax*] 1 cap PO DAILY 12/20/21 icosapent ethyL [Vascepa 1 gm Cap] 1 cap PO DAILY 12/20/21 Review of Systems 10-point ROS is otherwise unremarkable General: Weakness <Miguel Haque Darin - Last Filed: 12/19/21 19:40> Physical Examination - Physical Exam General: Oriented x2, Cooperative HEENT: Atraumatic, PERRLA, Other (Mucous membranes dry), EOMI, Sclerae nonicteric Neck: Supple, 2+ carotid pulse no bruit, No LAD, Without JVD or thyroid abnormality Respiratory: Clear to auscultation bilaterally, Normal air movement Cardiovascular: Regular rate/rhythm, Normal S1 S2 Gastrointestinal: Normal bowel sounds, No tenderness Musculoskeletal: No tenderness Integumentary: No rashes Neurological: Normal gait, Normal speech, Normal strength at 5/5 x4 extr, Normal tone, Normal affect Lymphatics: No axilla or inguinal lymphadenopathy Urinary: Suprapubic catheter - Studies Laboratory Data (last 24 hrs) 12/19/21 14:55: PT 10.9, INR 0.99, APTT 32.5 12/19/21 14:55: Sodium 135 L, Potassium 5.0, BUN 25 H, Creatinine 1.58 H, Glucose 101, Total Bilirubin 0.1 L, AST 23, ALT 35, Alkaline Phosphatase 106 12/19/21 14:55: WBC 9.5, Hgb 10.8 L, Hct 32.6 L, Plt Count 454 H <Miguel Haque - Last Filed: 12/19/21 19:40> Assessment and Plan - Plan Assessment: Hypotension, lactic acidosis UTI TANIYA Hypothyroidism Mental retardation Plan: Hypotension, lactic acidosis: No SIRS criteria met, suspect lactic acidosis is from hypotension, dehydration. Patient received 30 cc/kg NS bolus in the emergency department lactic acidosis has corrected at this point and blood pressure is significantly improved. Mucous membranes do appear dry we will continue IV fluids overnight. UTI: Patient was recently Bactrim, patient with mild mental retardation not able to tell me when antibiotics were initiated/completed. Will cover with Rocephin for the time being and obtain urine culture. TANIYA: Suspect this is related to dehydration/hypotension we will continue IV fluids overnight recheck chemistry in the morning. Consult nephrology if this becomes necessary. Hypothyroidism: Continue home medications once verified. Mental retardation: Stable. DVT PPX: Lovenox Code status: Full Discharge Plan: Home Plan to discharge in: 48 Hours - Advance Directives Does patient have a Living Will: No Does patient have a Durable POA for Healthcare: No - Code Status/Comfort Care Code Status Assessed: Yes (Full code) Critical Care: No Time Spent Managing Pts Care (In Minutes): 70 <Miguel Haque - Last Filed: 12/19/21 19:40> Physician Review: Patient Assessed, Agree with Above Assessment and Plan <Ganesh Bradford - Last Filed: 12/20/21 18:27>
[2021-12-19] MEDS ORDERED: ACETAMINOPHEN 500 MG TAB PO PRN (20:01)
[2021-12-19] MEDS ORDERED: ONDANSETRON 4 MG/2 ML VIAL IV PRN (20:01)
[2021-12-19 22:14] VITALS: BMI 27.2
[2021-12-19] MEDS: NA CHLORIDE 0.9% 1,000 ML IV SCH (22:19)
[2021-12-20 05:57] LABS: Absolute Lymphocytes (CBC) 2.5 K/uL (0.7-4.9); Hematocrit 30.1 % (39.6-49.0); MCV 79.8 fL (80-100); MPV 6.1 fL (7.6-11.3); RBC Red Blood Cell Count 3.78 M/uL (4.33-5.43)
[2021-12-20 06:09] LABS: Albumin 2.8 g/dL (3.4-5.0); Bilirubin Total 0.2 mg/dL (0.2-1.0); Potassium 4.3 mmol/L (3.5-5.1); Protein, Total 6.4 g/dL (6.4-8.2)
[2021-12-20] MEDS: NA CHLORIDE 0.9% 1,000 ML IV SCH ×2 (07:14→17:50)
--- NOTE | 2021-12-20 08:49 | EKG ---
Test Date: 2021-12-19 Test Time: 15:37:10 Academic Tutor: BALDO MEASUREMENT RESULTS: Intervals: Rate: 72 ND: 158 QRSD: 78 QT: 384 QTc: 420 [place]: P: 66 ND: 158 QRS: 44 T: 63 INTERPRETIVE STATEMENTS: Normal sinus rhythm Normal ECG Compared to ECG 02/16/2021 15:18:22 No significant changes Electronically Signed On 12-20-21 08:46:59 CDT by Luiz Hendrix
[2021-12-20] MEDS ORDERED: POTASSIUM CL SA 10 MEQ TAB PO ONE (09:00)
[2021-12-20] MEDS: CEFTRIAXONE 1,000 MG in NA CHLORIDE 0.9% 50 ML IVPB SCH (10:25)
[2021-12-20] MEDS: ENOXAPARIN 40 MG/0.4 ML SQ SCH (10:25)
--- OUTSIDE RECORDS SUMMARY | 2021-12-20 15:34 | XMS REPORT | Continuity of Care Document ---
:1955 Author Organization [facility] t Address [address] [place] [address] Care Team Providers Name Role Phone Doctor Unassigned, [place] Attending Clinician Unavailable Pob, Lab Main Attending [...] Drug Active Univers ALLERGIE Class ity of S [facility] Social History Social Habit Start Date Stop Date Quantity Comments Source Exposure to Not sure [facility] SARS-CoV-2 (event) Medica l Branch Sex Assigned At [birth year] [facility] 00:00:00 00:00:00 Medical Branch Smoking Status Start Date Stop Date Source Unknown if ever smoked [facility] Medications This patient has no known medications. Procedures Procedure Date / Time Performed Performing Clinician Nicky e EXTERNAL PROVIDER - 2020-11-14 05:01:00 Doctor Unassigned, No Un iversity of [facility] REFERRAL Name Medical Branch PHYSICIAN ORDERS 2020-09-04 05:01:00 Doctor Unassigned, No Unive rsity of [facility] Medical Branch PHYSICIAN ORDERS 2020-06-21 06:01:00 Doctor Unassigned, No Unive rsity of [facility] Medical Branch PHYSICIAN ORDERS 2020-06-15 06:01:00 Doctor Unassigned, No Unive rsity of [facility] Medical Branch CONSENT/REFUSAL FOR 2020-06-01 22:21:21 Doctor Unassigned, No Un iversity of [place] DIAGNOSIS AND Name Medical Branch TREATMENT Encounters Start End Encounter Admission Attending Care Care Encounter Source Date/Time Date/Time Type Type Clinicians Facility Department ID 2021-08-13 Outpatient [facility] [id number] Common 15:27:02 [id number] [facility] 2021-06-27 Outpatient [facility] [id number] Common 13:16:53 [id number] [facility] 2020-11-14 2020-11-14 Orders Doctor GUILLERMINA 1.2.840.114 [id number] Univers 00:00:00 00:00:00 Only Unassigned, MARY [id number] ity of [place] [facility] [id number] [place] as [phone] [address] 2020-09-04 2020-09-04 Orders Doctor GUILLERMINA 1.2.840.114 [id number] Univers 00:00:00 00:00:00 Only Unassigned, MARY [id number] ity of [place] [facility] [id number] [place] [phone] [address] 2020-06-21 2020-06-21 Job Order Clerk Alok, Taniya Lab Main [facility] 1.2.8 40.114 [id number] Univers 11:51:27 12:06:27 Visit Justin Medrano [id number] it[id number] [phone] [address] 2020-06-21 2020-06-21 Outpatient R [facility] [id number] Univers 12:00:00 12:00:00 [id number] ity of [facility] 2020-06-21 2020-06-21 Outpatient R TASIA [facility] [id number] Univers 12:00:00 12:00:00 JUSTIN mcpherson [facility] 2020-06-21 2020-06-21 Orders Doctor SARMIENTO 1.2.840.114 [id number] Univers 00:00:00 00:00:00 Only Unassigned, MARY [id number] ity of [place] [facility] [id number] [place] [phone] [address] 2020-06-15 2020-06-15 Job Order Clerk Alok, Adc Lab Main [facility] 1.2.8 40.114 [id number] Univers 09:08:20 09:23:20 Visit Justin Medrano [id number] [id number] [phone] [place]ical [place] [facility] 2020-06-15 2020-06-15 Outpatient R [facility] [id number] Univers 09:15:00 09:15:00 [id number] ity of [facility] 2020-06-15 2020-06-15 [facility] [id number] Univers 09:15:00 09:15:00 JUSTIN ity [facility] 2020-06-15 2020-06-15 Orders Doctor SARMIENTO 1.2.840.114 [id number] Univers 00:00:00 00:00:00 Only Unassigned, MARY [id number] ity of [facility] [id number] [place] as [phone] [address] 2020-06-13 2020-06-13 Outpatient R [facility] [id number] Univers 09:30:00 09:30:00 [id number] ity of [facility] 2020-06-01 2020-06-01 Outpatient R [facility] [id number] Univers 16:45:00 16:45:00 [id number] ity [facility] 2020-06-01 2020-06-01 [facility] [id number] Univers 16:45:00 16:45:00 ELIAS ity [facility] 2020-06-01 2020-06-01 Job Order Clerk Alok, Adc Lab Main [facility] 1.2.8 40.114 [id number] Univers 16:23:49 16:38:49 Visit Elias Mckeon [id number] it[id number] [phone] [place] dic[address] 2020-06-01 2020-06-01 Orders Doctor SARMIENTO 1.2.840.114 [id number] 00:00:00 00:00:00 Only Unassigned, MARY [id number] ity of [place] [facility] [id number] [place] as [phone] [facility] 009 Branch Results This patient has no known results.
--- NOTE | 2021-12-20 18:35 | P.PN ---
Subjective Date of Service: 12/20/21 Chief Complaint: UTI, hypotension Subjective: Improving (No acute events overnight. Vitals signs have improved. He reports no concerns this morning.) Review of Systems 10-point ROS is otherwise unremarkable Physical Examination - Vital Signs Temperature: 97.9 F Blood Pressure: 140/69 Pulse: 73 Respirations: 18 Pulse Ox (%): 98 - Physical Exam General: Alert, In no apparent distress, Oriented x3, Other (baseline intellectual disability) HEENT: Atraumatic, PERRLA, Mucous membr. moist/pink, EOMI, Sclerae nonicteric Neck: Supple, JVD not distended Respiratory: Clear to auscultation bilaterally, Normal air movement Cardiovascular: No edema, Regular rate/rhythm, Normal S1 S2, No gallops, No rubs, No murmurs Gastrointestinal: Normal bowel sounds, Soft and benign, Non-distended, No tenderness, No rebound, No guarding Musculoskeletal: No clubbing Integumentary: No rashes Neurological: Normal affect, Other (intellectual disability) Urinary: Suprapubic catheter Assessment And Plan - Plan # Lactic Acidosis suspect due to Severe Dehydration, resolved He presented with his first two blood pressures of 91/60 and 92/48. Additionally, his lactic acid was 4.3. He does not meet SIRS criteria, which would suggest against septic shock. Hypovolemic shock was included in the differential, but his lack of tachycardia argues against this. With IV fluids, his blood pressure has improved and his lactic acid has improved to 1.5. - Continue Lactated Ringers' @ 100 mL/hr # KDIGO Stage I-II Acute Kidney Injury likely secondary to Dehydration # Possible Suprapubic Catheter Associated Urinary Tract Infection (present on admission) - Creatinine = 1.58 (baseline creatinine 0.6-0.8) - Urinalysis = trace ketones, 1+ blood, trace leukocyte esterase, 510 RBCs, 1120 WBCs, 2050 bacteria, 1+ protein - Will require outpatient follow-up for microscopic hematuria - Continue ceftriaxone - IV fluids as mentioned above - Monitor creatinine and urine output - If worsening, obtain renal ultrasound - Renally dose medications # Hypothyroidism # Mild Intellectual Disability - Continue home medications once verified Ganesh Bradford M.D. Discharge Plan: Home (usp) Physician Review: Patient Assessed, Agree with Above Assessment and Plan Critical Care: No
[2021-12-20] MEDS: Ringers Lactate 1,000 ML IV SCH (21:03)
[2021-12-21 00:06] VITALS: O2SAT 93
[2021-12-21 04:16] LABS: Absolute Lymphocytes (CBC) 2.5 K/uL (0.7-4.9); Hematocrit 32.1 % (39.6-49.0); Lymphocytes % 29.3 % (15.3-44.8); MCV 79.2 fL (80-100); MPV 6.1 fL (7.6-11.3); RBC Red Blood Cell Count 4.05 M/uL (4.33-5.43)
[2021-12-21 04:37] LABS: Albumin 2.8 g/dL (3.4-5.0); Bilirubin Total 0.2 mg/dL (0.2-1.0); Potassium 4.4 mmol/L (3.5-5.1); Protein, Total 6.5 g/dL (6.4-8.2)
[2021-12-21] MEDS ORDERED: MAGNESIUM SULFATE 1 gm IVPB 1 GM/100 ML BAG IV ONE (05:36)
[2021-12-21] MEDS: Ringers Lactate 1,000 ML IV SCH (06:06)
[2021-12-21] MEDS: CEFTRIAXONE 1,000 MG in NA CHLORIDE 0.9% 50 ML IVPB SCH (08:31)
[2021-12-21] MEDS: ENOXAPARIN 40 MG/0.4 ML SQ SCH (08:32)
--- NOTE | 2021-12-21 10:50 | P.DS ---
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 Wilder Pimentel is a 66 year old male with a past medical history significant for hypothyroidism, chronic indwelling suprapubic catheter, and mild intellectual disability who was admitted to the [facility] on 12/19/2021 for lactic acidosis and dehydration. Upon further evaluation, he was found to be slightly hypotensive to 91/60. His laboratory evaluation was notable for a creatinine of 1.58 (baseline between 0.60.8) and an initial lactic acid of 4.3. He never met SIRS criteria and it was not felt that he was in sepsis. It was felt that his lactic acidosis was secondary to severe dehydration. He was treated with IV fluids and IV ceftriaxone, with significant improvement of his blood pressures and renal function. His urine culture returned positive for multi-drug resistant Pseudomonas Aureginosa, which was sensitive to ciprofloxacin. His blood cultures revealed no growth to date. Of note, his urinalysis revealed microscopic hematuria - although this is likely secondary to his UTI, it can sometimes be seen with urologic malignancy. He was advised to follow-up with his PCP for further evaluation. I have also notified Ms. Elizabeth (his retirement director). On 12/21/2021, he was seen on morning rounds and deemed medically stable for discharge. He was discharged with instructions to schedule follow-up appointments with his PCP in 3-5 days. He was provided a prescription for a 7- day course of ciprofloxacin. I have given these discharge instructions to him as well as the director of his retirement, Ms. Elizabeth. They were given the opportunity to ask questions and reported no further questions. Furthermore, all questions were answered to the best of my ability. Today, I personally spent 20 minutes on his case, of which greater than 50% of the time was spent in patient education, counseling, and coordination of care as described above. - Physical Exam General: Alert, In no apparent distress, Oriented x3, Other (baseline intellectual disability) HEENT: Atraumatic, PERRLA, Mucous membr. moist/pink, EOMI, Sclerae nonicteric Neck: Supple, JVD not distended Respiratory: Clear to auscultation bilaterally, Normal air movement Cardiovascular: No edema, Regular rate/rhythm, Normal S1 S2, No gallops, No rubs, No murmurs Gastrointestinal: Normal bowel sounds, Soft and benign, Non-distended, No tenderness, No rebound, No guarding Musculoskeletal: No clubbing Integumentary: No rashes Neurological: Normal affect, Other (intellectual disability) Urinary: Suprapubic catheter Vital Signs/Physical Exam: Temp Pulse Resp BP Pulse Ox 97.1 F 90 16 123/68 95 12/21/21 08:00 12/21/21 08:00 12/21/21 08:00 12/21/21 08:00 12/21/21 08:00 Laboratory Data at Discharge: WBC 8.4 K/uL (4.3-10.9) 12/21/21 03:34 Hgb 11.1 g/dL (13.6-17.9) L 12/21/21 03:34 Hct 32.1 % (39.6-49.0) L 12/21/21 03:34 Plt Count 433 K/uL (152-406) H 12/21/21 03:34 PT 10.9 SECONDS (9.5-12.5) 12/19/21 14:55 INR 0.99 12/19/21 14:55 APTT 32.5 SECONDS (24.3-36.9) 12/19/21 14:55 Sodium 137 mmol/L (136-145) 12/21/21 03:34 Potassium 4.4 mmol/L (3.5-5.1) 12/21/21 03:34 BUN 14 mg/dL (7-18) 12/21/21 03:34 Creatinine 0.96 mg/dL (0.55-1.3) 12/21/21 03:34 Glucose 90 mg/dL (74-106) 12/21/21 03:34 Magnesium 1.7 mg/dL (1.8-2.4) L 12/21/21 03:34 Total Bilirubin 0.2 mg/dL (0.2-1.0) 12/21/21 03:34 AST 18 U/L (15-37) 12/21/21 03:34 ALT 32 U/L (12-78) 12/21/21 03:34 Alkaline Phosphatase 106 U/L (45-117) 12/21/21 03:34 Home Medications: Calcium Carbonate [Oyster Shell Calcium] 1 tab PO DAILY 12/20/21 Clomipramine HCl 2 cap PO BEDTIME 12/20/21 Clomipramine HCl 3 cap PO TID 12/20/21 Cyanocobalamin (Vitamin B-12) [Vitamin B-12] 1 tab PO DAILY 12/20/21 Fluvoxamine Maleate 1 tab PO TID 12/20/21 LORazepam [Ativan] 1 tab PO DAILY WITH BREAKFAST 12/20/21 LORazepam [Ativan] 1 tab PO NOON 12/20/21 LORazepam [Lorazepam] 2 mg PO PRN 12/20/21 Levothyroxine Sodium [Levothyroxine] 1 tab PO DAILY 12/20/21 Lisinopril/Hydrochlorothiazide [Lisinopril-Hctz 10-12.5 mg Tab] 1 tab PO DAILY 12/20/21 Metformin ER [Glucophage ER] 1 tab PO DAILY AT SUPPER 12/20/21 Metformin ER [Glucophage ER] 1 tab PO DAILY WITH BREAKFAST 12/20/21 Rosuvastatin [Crestor*] 1 tab PO DAILY 12/20/21 Tamsulosin [Flomax*] 1 cap PO DAILY 12/20/21 icosapent ethyL [Vascepa 1 gm Cap] 1 cap PO DAILY 12/20/21 Ciprofloxacin HCl 250 mg PO BID 7 Days #14 tablet 12/21/21 New Medications: Ciprofloxacin HCl 250 mg PO BID 7 Days #14 tablet Diet: Regular Activity: Fall precautions Followup: Unknown,U [Primary Care Provider] -
[2021-12-21 12:35] VITALS: BP 127/66; TEMP 97.6
== END 2021-12-21 13:11 | disposition home or self-care (01) | DRG 699 ==
LOC: ER 14:06 → ERHOLD 19:14 → 2ND 21:28
PROVIDERS: ADMIT Internal Medicine; ATTEND Internal Medicine
DX: T83.518A Infection and inflammatory reaction due to other urinary catheter, initial encounter (principal); N39.0 Urinary tract infection, site not specified; Z16.24 Resistance to multiple antibiotics; E87.2 Acidosis; N17.9 Acute kidney failure, unspecified; B96.5 Pseudomonas (aeruginosa) (mallei) (pseudomallei) as the cause of diseases classified elsewhere; R31.29 Other microscopic hematuria; E86.0 Dehydration; E03.9 Hypothyroidism, unspecified; F70 Mild intellectual disabilities; I10 Essential (primary) hypertension; Z20.822 Contact with and (suspected) exposure to COVID-19
CPT/HCPCS: 36415; 70450; 80053; 81003; 81015; 82947; 83605; 83735; 85025; 85610; 85730; 87040; 87077; 87086; 87088; 87186; 87811; 93005; 96365; 96366; 99285; J1650; J3475; J7030; J7050; J7120

== ENCOUNTER 2021-12-31 14:58 | Emergency (ER) | payer OTHER ==
--- OUTSIDE RECORDS SUMMARY | 2021-12-31 15:03 | XMS REPORT | Continuity of Care Document ---
:1955 Author Organization [facility] Address [address] [place] [address] Care Team Providers Name Role Phone Doctor Unassigned, [place] Attending Clinician Unavailable Pob, Adc Lab Main Attending Clinician Unavailable Justin Dozier MD Attending Clinician JUSTIN DOZIER Attending Clinician Unavailable ELIAS VASQUEZ Attending Clinician Unavailable Elias Vasquez MD Attending Clinician Payers Payer Name Policy Type Policy Number Effective Date Expiration Date S ource Problems This patient has no known problems. Allergies, Adverse Reactions, Alerts Allergy Allergy Status Severity Reaction(s) Onset Inactive Treating Comm ents Source Name Type Date Date Clinician NO KNOWN Drug Active Univers ALLERGIE Class ity of S [facility] Social History Social Habit Start Date Stop Date Quantity Comments Source Exposure to Not sure [facility] SARS-CoV-2 (event) Medica l Branch Sex Assigned At [birth year] [facility] 00:00:00 00:00:00 Medical Branch Smoking Status Start Date Stop Date Source Unknown if ever smoked [facility] Medications This patient has no known medications. Procedures Procedure Date / Time Performed Performing Clinician [facility] e EXTERNAL PROVIDER - 2020-11-14 05:01:00 Doctor Unassigned, No Un iversity of [facility] REFERRAL Name Medical Branch PHYSICIAN ORDERS 2020-09-04 05:01:00 Doctor Unassigned, No Unive rsity of [facility] Medical Branch PHYSICIAN ORDERS 2020-06-21 06:01:00 Doctor Unassigned, No Unive rsity of [facility] Medical Branch PHYSICIAN ORDERS 2020-06-15 06:01:00 Doctor Unassigned, No Unive rsity of [facility] CONSENT/REFUSAL FOR 2020-06-01 22:21:21 [facility]igned, [facility] AND Name Medical Branch TREATMENT Encounters Start End Encounter Admission Attending Care Care Encounter Source Date/Time Date/Time Type Type Clinicians Facility Department ID 2021-12-27 Outpatient [facility] [id number] Common 14:17:02 [facility] 2021-08-13 Outpatient [facility] [id number] Common 15:27:02 [facility] 2021-06-27 Outpatient [facility] [id number] Common 13:16:53 [facility] 2020-11-14 2020-11-14 Orders Doctor SARMIENTO 1.2.840.114 [id number] Univers 00:00:00 00:00:00 Only Unassigned, MARY [id number] ity of [place] [facility] [id number] Ender as [phone] [address] 2020-09-04 2020-09-04 Orders Doctor SARMIENTO 1.2.840.114 [id number] Univers 00:00:00 00:00:00 Only Unassigned, MARY [id number] ity of [place] [facility] [id number] Ender as [phone] [address] 2020-06-21 2020-06-21 Automobile Mechanic Motor Taniya Dickinson Lab Main [facility] 1.2.8 40.114 [id number] Univers 11:51:27 12:06:27 Visit Justin Dozier [id number] it[place] of [id number] [phone] [place] [address] 2020-06-21 2020-06-21 Outpatient R [facility] [id number] Univers 12:00:00 12:00:00 [id number] ity [facility] 2020-06-21 2020-06-21 Outpatient R TASIA [facility] [id number] Univers 12:00:00 12:00:00 JUSTIN mcpherson [facility] 2020-06-21 2020-06-21 Orders Doctor SARMIENTO 1.2.840.114 [id number] Univers 00:00:00 00:00:00 Only Unassigned, MARY [id number] ity of [place] [facility] [id number] Ender as [phone] [address] 2020-06-15 2020-06-15 Automobile Mechanic Motor Alok, Adc Lab Main [facility] 1.2.8 40.114 [id number] Univers 09:08:20 09:23:20 Visit Justin Dozier [id number] it[place] of [id number] [phone] Mo dical [address] 2020-06-15 2020-06-15 Outpatient R [facility] [id number] Univers 09:15:00 09:15:00 [id number] ity [facility] 2020-06-15 2020-06-15 [facility] [id number] Univers 09:15:00 09:15:00 JUSTIN y [facility] 2020-06-15 2020-06-15 Orders Doctor SARMIENTO 1.2.840.114 [id number] Univers 00:00:00 00:00:00 Only Unassigned, MARY [id number] ity of [place] [facility] [id number] Ender as [phone] [address] 2020-06-13 2020-06-13 Outpatient R [facility] [id number] Univers 09:30:00 09:30:00 [id number] ity [facility] 2020-06-01 2020-06-01 Outpatient R [facility] [id number] Univers 16:45:00 16:45:00 [id number] ity of [facility] 2020-06-01 2020-06-01 [facility] [id number] Univers 16:45:00 16:45:00 ELIAS [facility] 2020-06-01 2020-06-01 Automobile Mechanic Motor Alok, Adc Lab Main [facility] 1.2.8 40.114 [id number] Univers 16:23:49 16:38:49 Visit Elias Vasquez [id number] ity of [id number] [phone] Mo dical [facility] [address] [facility] 2020-06-01 2020-06-01 Orders Doctor GUILLERMINA 1.2.840.114 [id number] 00:00:00 00:00:00 Only Unassigned, MARY [id number] ity of [place] [facility] [id number] Ender as [phone] [facility] 009 Branch Results This patient has no known results.
[2021-12-31 18:32] VITALS: BP 112/67; TEMP 98; O2SAT 99
--- NOTE | 2022-01-02 09:36 | ER ---
Nurse's Notes [facility] Name: Wilder Alvarez Age: 66 yrs Sex: Male : 1955 Arrival Date: 12/31/2021 Time: 15:07 Bed 12 Private MD: Diagnosis: Encounter for examination and observation for other specified reasons Presentation: 12/31 15:24 Chief complaint: Patient states: pt presented to ED with care provider stating that [place] suprapubic cath is not draining. Coronavirus screen: Vaccine status: Patient reports receiving the 2nd dose of the covid vaccine. Ebola Screen: Patient denies travel to an Ebola-affected area in the 21 days before illness onset. Initial Sepsis Screen: Does the patient meet any 2 criteria? Altered Mental Status. Does the patient have a suspected source of infection? No. Patient's initial sepsis screen is negative. Risk Assessment: Do you want to hurt yourself or someone else? Patient reports no desire to harm self or others. Onset of symptoms was December 31, 2021. 15:24 Method Of Arrival: Ambulatory granados 15:24 Acuity: COLUM[place] 3 granados Historical: - Allergies: 15:25 TB shot; gran[place] - PMHx: 15:25 Hypertensive disorder; Hypothyroidism; MILD MENTAL RETARDATION; Obsessive compulsive granados disorder; - Immunization history:: Adult Immunizations up to date. - Social history:: Smoking status: Patient denies any tobacco usage or history of. Screenin:52 Abuse screen: Denies threats or abuse. Denies injuries from another. Nutritional ph screening: No deficits noted. Tuberculosis screening: No symptoms or risk factors identified. Fall Risk None identified. Assessment: 16:19 General: Appears in no apparent distress. comfortable, well groomed, Behavior is calm, ph cooperative, appropriate for age. Pain: Denies pain. Neuro: Level of Consciousness is awake, alert, obeys commands, Oriented to person, place, time, situation. Cardiovascular: Capillary refill < 3 seconds in bilateral fingers Patient's skin is warm and dry. Respiratory: Airway is patent Respiratory effort is even, unlabored. : suprapubic catheter in place to gravity drainage senior care specialist states that it was not draining HOME VISITOR, appears to be draining now, she states, " It looks like it's working now. I was just worried because he usually makes a lot of urine and it had barely drained anything today." Also states that pt is currently being tx for UTI, catheter site slightly reddened in appearance, biofilm noted to catheter. Derm: Skin is pink, warm \\T\\ dry. Musculoskeletal: Circulation, motion, and sensation intact. Range of motion: intact in all extremities. 17:16 Reassessment: Patient appears in no apparent distress at this time. Patient and/or ph family updated on plan of care and expected duration. Pain level reassessed. Patient is alert, oriented x 3, equal unlabored respirations, skin warm/dry/pink. Catheter appears to be draining, approx 300 mL noted in bag. Vital Signs: 15:24 BP 106 / 54; Pulse 95; Resp 19; Temp 98.2(T); Pulse Ox 97% ; Weight 80.29 kg; Height 5 granados ft. 7 in. (170.18 cm); 17:17 BP 112 / 67; Pulse 89; Resp 18; Temp 98.0; Pulse Ox 99% on R/A; ph 15:24 Body Mass Index 27.72 (80.29 kg, 170.18 cm) granados ED Course: 15:07 Patient arrived in ED. am2 15:21 Mayur Molina PA is PHCP. cp 15:21 Daren Castaneda MD is Attending Physician. cp 15:25 Triage completed. granados 15:51 Machelle Sharpe RN is Primary Nurse. ph 15:52 Arm band placed on Patient placed in an exam room. ph 15:52 Patient has correct armband on for positive identification. Bed in low position. Call ph light in reach. Side rails up X 1. Pulse ox on. NIBP on. 16:24 Bladder scan completed. approx 360 mL present in bladder, catheter currently draining. ph 17:16 No provider procedures requiring assistance completed. Patient did not have IV access ph during this emergency room visit. Administered Medications: No medications were administered Medication: 15:52 VIS not applicable for this client. ph Outcome: 16:41 Discharge ordered by . cp 17:17 Discharged to home ambulatory. ph 17:17 Condition: good 17:17 Discharge instructions given to pest control chemical technician, Instructed on discharge instructions, follow up and referral plans. Demonstrated understanding of instructions, follow-up care. 17:18 Patient left the ED. ph Signatures: Machelle Sharpe RN RN ph Page, Mayur, Maxine Martin cp am2 Paty-Stager, Allison, BENEDICTO RN granados
--- NOTE | 2022-01-02 09:37 | EDPHYS ---
Physician Documentation [facility] Name: Wilder Alvarez Age: 66 yrs Sex: Male : 1955 Arrival Date: 12/31/2021 Time: 15:07 Bed 12 Private MD: ED Physician Daren Castaneda HPI: 12/31 16:10 This 66 yrs old Male presents to ER via Ambulatory with complaints of Problem With cp Urinary Catheter, Urinary Problem. 16:10 The patient presents with a Macario catheter problem, is not draining, suprapubic cp catheter. Onset: The symptoms/episode began/occurred today. 16:12 Caregiver reports patient currently taking antibiotic for urinary tract infection. cp Historical: - Allergies: 15:25 TB shot; granados - PMHx: 15:25 Hypertensive disorder; Hypothyroidism; MILD MENTAL RETARDATION; Obsessive compulsive granados disorder; - Immunization history:: Adult Immunizations up to date. - Social history:: Smoking status: Patient denies any tobacco usage or history of. ROS: 16:15 Constitutional: Negative for body aches, chills, fever, poor PO intake. cp 16:15 Eyes: Negative for injury, pain, redness, and discharge. cp 16:15 Cardiovascular: Negative for chest pain, edema, palpitations. 16:15 Respiratory: Negative for cough, shortness of breath, wheezing. 16:15 Abdomen/GI: Negative for abdominal pain, vomiting, diarrhea, constipation. 16:15 : Negative for hematuria, testicular pain 16:15 Neuro: Negative for altered mental status, headache, syncope, weakness. 16:15 All other systems are negative. Exam: 16:20 Constitutional: The patient appears in no acute distress, alert, awake, comfortable, cp non-toxic, well developed, well nourished. 16:20 Head/Face: Normocephalic, atraumatic. cp 16:20 Cardiovascular: Rate: normal. 16:20 Respiratory: the patient does not display signs of respiratory distress, Respirations: normal, no use of accessory muscles, no retractions. 16:20 Abdomen/GI: Inspection: suprapubic catheter in place and draining straw colored urine, Bowel sounds: active, all quadrants, Palpation: soft, in all quadrants, mild abdominal tenderness, in the suprapubic area, rebound tenderness, is not appreciated, involuntary guarding, is not appreciated. 16:20 Skin: cellulitis, is not appreciated, no rash present. 16:20 Neuro: Orientation: no acute changes, per caregiver, Motor: moves all fours, strength is normal. Vital Signs: 15:24 BP 106 / 54; Pulse 95; Resp 19; Temp 98.2(T); Pulse Ox 97% ; Weight 80.29 kg; Height 5 granados ft. 7 in. (170.18 cm); 17:17 BP 112 / 67; Pulse 89; Resp 18; Temp 98.0; Pulse Ox 99% on R/A; ph 15:24 Body Mass Index 27.72 (80.29 kg, 170.18 cm) granados MDM: 16:06 Patient medically screened. cp 16:38 Data reviewed: vital signs, nurses notes, and as a result, I will discharge patient. cp 12/31 16:06 Order name: Bladder Scanner; Complete Time: 16:27 cp Administered Medications: No medications were administered Disposition: 18:58 Co-signature as Attending Physician, Daren Castaneda MD. rn Disposition Summary: 12/31/21 16:41 Discharge Ordered Location: Home cp Problem: new cp Symptoms: have improved cp Condition: Stable cp Diagnosis - Encounter for examination and observation for other specified reasons cp Followup: cp - With: Emergency Department - When: As needed - Reason: Worsening of condition Discharge Instructions: - Discharge Summary Sheet cp - Suprapubic Catheter Home Guide cp Forms: - Medication Reconciliation Form cp - Thank You Letter cp - Antibiotic Education cp - Prescription Opioid Use cp Signatures: Daren Castaneda MD MD rn Page, Corey, PA PA cp Allison Bear RN RN
== END 2021-12-31 17:18 | disposition home or self-care (01) ==
LOC: ER 14:58
DX: T83.091A Other mechanical complication of indwelling urethral catheter, initial encounter (principal); Z88.8 Allergy status to other drugs, medicaments and biological substances
CPT/HCPCS: 99283

== ENCOUNTER 2022-01-02 18:02 | Emergency (ER) | payer OTHER ==
--- OUTSIDE RECORDS SUMMARY | 2022-01-02 18:06 | XMS REPORT | Continuity of Care Document ---
:1955 Author Organization [facility] t Address [address] [place] [address] Care Team Providers Name Role Phone Doctor Unassigned, [place] Attending Clinician Unavailable Pob, Adc Lab Main [...] Active Univers [facility]ERGIE Class ity of [facility] Social History Social Habit Start Date Stop Date Quantity Comments Source Exposure to Not sure [facility] SARS-CoV-2 (event) Medica l Branch Sex Assigned At [birth year] [facility] 00:00:00 00:00:00 Medical Branch Smoking Status Start Date Stop Date Source Unknown if ever smoked [facility] Medications This patient has no known medications. Procedures Procedure Date / Time Performed Performing Clinician [facility] e EXTERNAL PROVIDER - 2020-11-14 05:01:00 Doctor Unassigned, No Un iversity of [facility] REFERRAL Name Medical Branch PHYSICIAN ORDERS 2020-09-04 05:01:00 Doctor Unassigned, No Unive rsity of [facility] Medical Branch PHYSICIAN ORDERS 2020-06-21 06:01:00 Doctor Unassigned, No Unive rsity of [facility] Medical Branch PHYSICIAN ORDERS 2020-06-15 06:01:00 [facility] 2020-06-01 22:21:21 Doctor Unassigned, No Un [place] of [place] DIAGNOSIS AND Name Medical Branch TREATMENT Encounters Start End Encounter Admission Attending Care Care Encounter Source Date/Time Date/Time Type Type Clinicians Facility Department ID 2021-12-[address] [facility] [id number] Common 14:17:02 [facility] 2021-08-[address] [facility] [id number] Common 15:27:02 [facility] 2021-06-[address] [facility] [id number] Common 13:16:53 [facility] 2020-11-14 2020-11-14 Orders Doctor SARMIENTO [id number] Univers 00:00:00 00:00:00 Only Unassigned, MARY [id number] ity of [place] [facility] [id number] Ender as [phone] [address] 2020-09-04 2020-09-04 Orders Doctor SARMIENTO [id number] Univers 00:00:00 00:00:00 Only Unassigned, MARY [id number] ity of [place] [facility] [id number] Ender as [phone] [address] 2020-06-21 2020-06-21 Supervisor Facepiece Line Alok, Taniya Lab Main [place] 1.2.8 [id number] Univers 11:51:27 12:06:27 Visit Justin Dozier [id number] [id number] [phone] [place] dical [address] 2020-06-21 2020-06-21 Outpatient R [facility] [id number] Univers 12:00:00 12:00:00 [id number] ity [facility] 2020-06-21 2020-06-21 Outpatient R TASIA [facility] [id number] Univers 12:00:00 12:00:00 JUSTIN mcpherson [facility] 2020-06-21 2020-06-21 Orders Doctor SARMIENTO [id number] Univers 00:00:00 00:00:00 Only Unassigned, MARY [id number] [facility]y [facility] [place] [facility] [id number] Ender as [phone] [address] 2020-06-15 2020-06-15 Supervisor Facepiece Line lAok, Adc Lab Main [place] 1.2.8 40.114 [id number] Univers 09:08:20 09:23:20 Visit Justin Dozier [id number] [id number] [phone] [address] 2020-06-15 2020-06-15 Outpatient R [facility] [id number] Univers 09:15:00 09:15:00 [id number] ity [facility] 2020-06-15 2020-06-15 [facility] [id number] Univers 09:15:00 09:15:00 JUSTIN ity [facility] 2020-06-15 2020-06-15 Orders Doctor GUILLERMINA [id number] Univers 00:00:00 00:00:00 Only Unassigned, MARY [id number] ity of [place] [facility] [id number] Ender as [phone] [address] 2020-06-13 2020-06-13 Outpatient R [facility] [id number] Univers 09:30:00 09:30:00 [id number] ity [facility] 2020-06-01 2020-06-01 Outpatient R [facility] [id number] Univers 16:45:00 16:45:00 [id number] ity [facility] 2020-06-01 2020-06-01 [facility] [id number] Univers 16:45:00 16:45:00 ELIAS ity [facility] 2020-06-01 2020-06-01 Supervisor Facepiece Line Alok, Adc Lab Main [place] 1.2.8 40.114 [id number] Univers 16:23:49 16:38:49 Visit Elias Vasquez [id number] [id number] [phone] Oh dical [facility] [address] Branch [facility] 2020-06-01 2020-06-01 Orders Doctor GUILLERMINA [id number] 00:00:00 00:00:00 Only Unassigned, MARY [id number] [place]y of [place] [facility] [id number] Ender as [phone] [facility] 009 Branch Results This patient has no known results.
[2022-01-02 20:37] LABS: Absolute Lymphocytes (CBC) 2.5 K/uL (0.7-4.9); Hematocrit 30.9 % (39.6-49.0); Lymphocytes % 24.5 % (15.3-44.8); MCV 79.7 fL (80-100); MPV 6.3 fL (7.6-11.3); RBC Red Blood Cell Count 3.88 M/uL (4.33-5.43)
[2022-01-02 20:46] LABS: Bilirubin Total 0.2 mg/dL (0.2-1.0); Protein, Total 6.8 g/dL (6.4-8.2)
--- NOTE | 2022-01-02 20:50 | RAD REPORT ---
EXAM DESCRIPTION: RAD - Chest Single View - 01/02/2022 8:07 pm CLINICAL HISTORY: fall, chest pain COMPARISON: Portable 10/22/2021 TECHNIQUE: AP portable chest image was obtained 01/02/2022 8:07 pm . FINDINGS: Lung volumes are low. Lung base atelectasis present. No failure or volume overload. Heart and vasculature are normal. No measurable pleural effusion and no pneumothorax. No acute bony abnorma lity seen. No acute aortic findings suspected. IMPRESSION: No acute cardiopulmonary process.
--- NOTE | 2022-01-02 20:51 | RAD REPORT ---
EXAM DESCRIPTION: RAD - Knee Right 3 View - 01/02/2022 8:07 pm CLINICAL HISTORY: PAIN COMPARISON: No comparisons FINDINGS: No acute fracture, dislocation or periosteal reaction.No joint effusion seen. Callus forma tion and remodeling is present around a subacute proximal fibula fracture. No joint space narrowing. No foreign body or other soft tissue abnormality. IMPRESSION: Negative right knee for acute bone or joint finding. Incomplete healing of a proximal fibular fracture. Clinical concerns for internal derangement or occult bony injury could be further assessed with MR im aging.
--- NOTE | 2022-01-02 20:52 | RAD REPORT ---
EXAM DESCRIPTION: RAD - Knee Left 3 View - 01/02/2022 8:07 pm CLINICAL HISTORY: PAIN, fall COMPARISON: No comparisons FINDINGS: No fracture, dislocation or periosteal reaction.No joint effusion seen. No joint space ricki rowing. Degenerative cartilage in meniscal calcifications are seen. No soft tissue abnormality. IMPRESSION: Negative left knee for acute bone or joint finding. Clinical concerns for internal derangement or occult bony injury could be further assessed with MR im aging.
[2022-01-02] MEDS ORDERED: NA CHLORIDE 0.9% 1,000 ML ONE (21:15)
[2022-01-02 21:59] LABS: Urine Blood 3+ (Negative); Urine Glucose Negative (Negative); Urine Protein 3+ (Negative); Urine pH 8.5 (5.0-7.0)
[2022-01-02 22:02] LABS: Urine Bacteria <20 /HPF (<20); Urine Mucus Slight /HPF (None Seen); Urine RBC >50 /HPF (None Seen); Urine Triple Phosphate Crystal Many /HPF (None Seen)
--- NOTE | 2022-01-02 22:05 | RAD REPORT ---
EXAM DESCRIPTION: CT - Head Brain Wo Cont - 01/02/2022 9:47 pm CLINICAL HISTORY: fall, pain mass COMPARISON: <Comparisons>CT head December 19 TECHNIQUE: Axial 5 mm thick images of the head were obtained without IV contrast. All CT scans are performed using dose optimization technique as appropriate and may include automated exposure control or mA/KV adjustment according to patient size. FINDINGS: No intracranial hemorrhage, mass, edema or shift of mid-line structures. No acute infarcti on changes seen. No cortical edema or sulcal effacement. No abnormal extra-axial fluid collections. V entricles are unchanged in size from comparison imaging. Mastoid air cells and visualized portions of the paranasal sinuses are clear. No acute bony findings. IMPRESSION: Negative non-contrast CT head examination for acute finding. No significant change December 19 imaging.
--- NOTE | 2022-01-02 22:12 | RAD REPORT ---
EXAM DESCRIPTION: CT - Abdomen Pelvis W Contrast - 01/02/2022 9:48 pm CLINICAL HISTORY: diffuse abd pain, fall COMPARISON: Head Brain Wo Cont dated 12/19/2021bdomen Pelvis W Contrast dated 10/18/2021 TECHNIQUE: Biphasic, helical CT imaging of the abdomen and pelvis was performed following 100 ml non -ionic IV contrast. No oral contrast was given. All CT scans are performed using dose optimization technique as appropriate and may include automated exposure control or mA/KV adjustment according to patient size. FINDINGS: No suspicious findings in the lung bases. Small hiatal hernia is present. The liver, spleen, and pancreas show no suspicious findings. Gallbladder and biliary tree are also wi thout suspicious finding. Symmetric renal function is seen with no hydronephrosis or suspicious renal mass. A 5.5 cm simple cys t is present upper pole left kidney. An exophytic 1.7 centimeter cyst is present in the lateral mid l eft kidney. No pyelonephritis or acute parenchymal process. No adrenal abnormalities. Patient has a known suprapubic catheter. Air is present in the lumen of the urinary bladder presumed to be related to catheter exchange. There is thickening along the anterior bladder wall. The balloon of the suprapubic catheter is inflated in the subcutaneous fat within the chronic tract. There is thi ckening of the soft tissues along the anterior abdominal wall with a balloon is inflated. No dilated bowel loops or bowel wall thickening. Large stool volume present throughout the colon. No appendicitis findings. No free air, free fluid or pneumatosis. No hernia, mass or bulky lymphadenopa thy. No suspicious bony findings. IMPRESSION: No acute traumatic injury to the abdomen or pelvis. Patient has a chronic suprapubic catheter with the balloon of the Macario catheter inflated within the subcutaneous fat along the course of the catheter tract. There is thickening of the surrounding soft tissues at the abdominal wall level. In the current position, the tubing of the suprapubic catheter does not extend into the bladder lumen . Large stool volume throughout the colon. No acute GI finding.
--- NOTE | 2022-01-02 23:36 | ER ---
Nurse's Notes [facility] Name: Wilder Alvarez Age: 66 yrs Sex: Male : 1955 Arrival Date: 01/02/2022 Time: 18:07 Bed 15 Private MD: Diagnosis: Displacement of urinary (indwelling) catheter Presentation: 01/02 18:04 Chief complaint: EMS states: pt is from a half-way/assisted living home, had an tw2 unwitnessed fall, denies loc, no head injury, he is c/o abdominal pain. he has had a UTI for 2 weeks, he is drinking fluids put no urine today. vst stable 100/64 hr 80, 99% RA, 97.4 temp BGL 116 mg/dL. he does have special needs. Coronavirus screen: At this time, the client does not indicate any symptoms associated with coronavirus-19. Ebola Screen: Patient denies travel to an Ebola-affected area in the 21 days before illness onset. 18:04 Method Of Arrival: EMS: [facility] tw2 18:05 Initial Sepsis Screen: Does the patient meet any 2 criteria? No. Patient's initial tw2 sepsis screen is negative. Does the patient have a suspected source of infection? No. Patient's initial sepsis screen is negative. Risk Assessment: Do you want to hurt yourself or someone else? Patient reports no desire to harm self or others. Note pt has steve with leg bag inplace upon arrival to ER. Onset of symptoms was January 02, 2022. 18:05 Acuity: COLUM[place] 3 tw2 Triage Assessment: 18:05 General: Appears in no apparent distress. Behavior is calm, cooperative, appropriate tw2 for age. Pain: Denies pain. Neuro: Level of Consciousness is awake, alert, obeys commands, Oriented to person, place. : : noted steve catheter in place secured with leg bag upon arrival to ER. Historical: - Allergies: 18:10 TB shot; tw2 18:10 tuberculin,PPD,multi-puncture; tw2 - Home Meds: 18:10 lisinopril-hydrochlorothiazide 10-12.5 mg Oral tab 1 tab once daily for Hypertension tw2 [Active]; clomipramine 75 mg Oral cap [Active]; fluvoxamine 100 mg Oral cp24 1 cap three times a day [Active]; metformin 500 mg oral tab 1 tab 2 times per day [Active]; VESCEPA 1 GM BY MOUTH TWICE DAILY [Active]; - PMHx: 18:10 Hypertensive disorder; Hypothyroidism; MILD MENTAL RETARDATION; Obsessive compulsive tw2 disorder; - Immunization history:: Adult Immunizations up to date. - Social history:: Smoking status: . - Family history:: not pertinent. Screenin:28 Abuse screen: Denies threats or abuse. Nutritional screening: No deficits noted. tw2 Tuberculosis screening: No symptoms or risk factors identified. Fall Risk Secondary diagnosis (15 points) impaired mobility. Assessment: 18:36 Reassessment: No changes from previously documented assessment. Patient and/or family ll1 updated on plan of care and expected duration. Pain level reassessed. 18:36 Reassessment: spoke to Tressa from [facility] half-way ph#[phone] she is contact and tw2 caregiver. states he was in the hospital about a week ago for a bad uti, he keeps falling and 2 days ago the new steve was placed and there has been very little urine out today. 20:00 General: Appears in no apparent distress. Behavior is cooperative. Pain: Complains of sm5 pain in abdomen. Neuro: Level of Consciousness is awake, alert, obeys commands. Cardiovascular: Capillary refill < 3 seconds Patient's skin is warm and dry. Respiratory: Airway is patent Trachea midline Respiratory effort is even, unlabored. : Reports no urine output. 22:00 Reassessment: No changes from previously documented assessment. sm5 23:59 Reassessment: No changes from previously documented assessment. Patient and/or family sm5 updated on plan of care and expected duration. Pain level reassessed. Vital Signs: 18:26 BP 95 / 55; Pulse 83; Resp 17; Temp 97.8(TE); Pulse Ox 98% on R/A; tw2 23:42 BP 115 / 64; Pulse 77; Resp 17; Pulse Ox 100% on R/A; sm5 ED Course: 18:07 Patient arrived in ED. mr 18:12 Arm band placed on. tw2 18:27 Triage completed. tw2 18:35 Patient placed in an exam room, on a stretcher. kr3 18:36 Juan Willard, BENEDICTO is Primary Nurse. ll1 18:36 Patient has correct armband on for positive identification. Bed in low position. Call ll1 light in reach. Side rails up X2. 19:10 Daren Castaneda MD is Attending Physician. rn 20:09 XRAY Knee LEFT 3 view In Process Unspecified. EDMS 20:09 XRAY Knee RIGHT 3 view In Process Unspecified. EDMS 20:09 XRAY Chest (1 view) In Process Unspecified. EDMS 20:22 Inserted saline lock: 20 gauge in right antecubital area, using aseptic technique. zm Blood collected. 20:22 Lactate Sent. zm 20:22 Blood Culture Adult (2) Sent. zm 20:22 CMP Sent. zm 20:23 Lipase Sent. zm 20:23 CBC with Diff Sent. zm 21:49 Abdomen In Process Unspecified. EDMS 21:49 Head Brain Wo Cont In Process Unspecified. EDMS 22:46 Urine Culture Sent. zm 23:39 No provider procedures requiring assistance completed. sm5 01/03 00:00 IV discontinued, intact, bleeding controlled, No redness/swelling at site. Pressure sm5 dressing applied. Administered Medications: 01/02 21:11 Drug: NS 0.9% 1000 ml Route: IV; Rate: 1000 ml; Site: right antecubital; sm5 22:15 Follow up: IV Status: Completed infusion; IV Intake: 1000ml sm5 Medication: 23:39 VIS not applicable for this client. sm5 Intake: 22:15 IV: 1000ml; Total: 1000ml. sm5 22:30 suprapubic catheter sm5 Output: 22:30 Urine: 600ml; Total: 600ml. sm5 22:30 suprapubic catheter sm5 Outcome: 23:36 Discharge ordered by . 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 medication usage, Demonstrated understanding of instructions, follow-up care, medications, Prescriptions given X 1. 01/03 00:01 Patient left the ED. sm5 Addendum: 01/06/2022 08:14 Addendum: Culture Results: Positive urine culture. Bacteria is resistant to, has i w intermediate sensitivity, or is not tested against prescribed antibiotics. Report given to MACARIO for further evaluation and then to can line operator for follow up with patient. 10:37 Addendum: Culture Results: Phone call Attempt #1 spoke with Jatin Shell, pt i w caregiver, pt has appt with DR. Fowler tomorrow, will f/u tomorrow. Signatures: Dispatcher [employer] SHADI LitoSanta Irene, RN RN Daren Ruiz MD MD rn Wise, Liz RN RN tw2 Juan Willard RN RN ll1 Jennifer Wyatt RN RN 5 Kourtney Contreras Kelley RN RN kr3
--- NOTE | 2022-01-02 23:36 | EDPHYS ---
Physician Documentation [facility] Name: Wilder Alvarez Age: 66 yrs Sex: Male : 1955 Arrival Date: 01/02/2022 Time: 18:07 Bed 15 Private MD: ED Physician Daren Castaneda HPI: 01/02 19:54 This 66 yrs old Male presents to ER via EMS with complaints of AMS, decreased urinary rn output. 19:54 The patient presents with decreased mental status, decreased responsiveness. Onset: The rn symptoms/episode began/occurred at an unknown time. Possible causes: unknown. Associated signs and symptoms: Pertinent positives: abdominal pain, confusion, weakness, Pertinent negatives: chest pain, headache. Current symptoms: In the emergency department the patient's symptoms are unchanged from the initial presentation. It is unknown whether or not the patient has had similar symptoms in the past. The patient has been recently seen by a physician:. EMS reports told that pt with AMS, has been told recently had UTI, not eating or drinking much, complains of abdominal pain, and decreased urinary output. Unknown if fever. Fall today, seems fell onto knees, only complains of knee pain. Unsure if hit head. . Historical: - Allergies: 18:10 TB shot; tw2 18:10 tuberculin,PPD,multi-puncture; tw2 - Home Meds: 18:10 lisinopril-hydrochlorothiazide 10-12.5 mg Oral tab 1 tab once daily for Hypertension tw2 [Active]; clomipramine 75 mg Oral cap [Active]; fluvoxamine 100 mg Oral cp24 1 cap three times a day [Active]; metformin 500 mg oral tab 1 tab 2 times per day [Active]; VESCEPA 1 GM BY MOUTH TWICE DAILY [Active]; - PMHx: 18:10 Hypertensive disorder; Hypothyroidism; MILD MENTAL RETARDATION; Obsessive compulsive tw2 disorder; - Immunization history:: Adult Immunizations up to date. - Social history:: Smoking status: . - Family history:: not pertinent. ROS: 19:54 Constitutional: Negative for fever, chills, and weight loss, Eyes: Negative for injury, rn pain, redness, and discharge, Neck: Negative for injury, pain, and swelling, Cardiovascular: Negative for chest pain, palpitations, and edema, Respiratory: Negative for shortness of breath, cough, wheezing, and pleuritic chest pain, Abdomen/GI: + abd pain, neg for vomiting/diarrhea Back: Negative for injury and pain, : decreased urinary output MS/Extremity: Negative for injury and deformity, Skin: Negative for injury, rash, and discoloration, Neuro: Negative for headache, numbness, tingling, and seizure. Exam: 19:54 Constitutional: This is a well developed, well nourished patient who is awake, alert, rn and in no acute distress. Head/Face: Normocephalic, atraumatic. Eyes: Periorbital areas with no swelling, redness, or edema. ENT: dry MM Cardiovascular: Regular rate and rhythm. No pulse deficits. Respiratory: No increased work of breathing, no retractions or nasal flaring. Abdomen/GI: soft, + tender in mid-abdomen, no masses or rebound. + suprapubic catheter in place without drainage or erythema Skin: Warm, dry MS/ Extremity: Pulses equal, no cyanosis. Neuro: Awake and alert, GCS 15. motor strength 4/5. Sensation intact. 21:08 ECG was reviewed by the Attending Physician. rn Vital Signs: 18:26 BP 95 / 55; Pulse 83; Resp 17; Temp 97.8(TE); Pulse Ox 98% on R/A; tw2 23:42 BP 115 / 64; Pulse 77; Resp 17; Pulse Ox 100% on R/A; sm5 MDM: 19:10 Patient medically screened. rn 22:47 ED course: Ct showed suprapubic catheter not in bladder, balloon deflated with nurse in rn room, advanced, successfully placed in bladder with 600cc urine return, abd pain resolved, will observe for more urine output and anticipate dc home. Caregiver at bedside states he is known to pull out catheter or tug at it at times. . 23:34 Differential Diagnosis: electrolyte abnormality, UTI, volume depletion, suprapubic rn catheter displacement. Data reviewed: vital signs, nurses notes, lab test result(s), radiologic studies, CT scan, and as a result, I will discharge patient. Counseling: I had a detailed discussion with the patient and/or guardian regarding: the historical points, exam findings, and any diagnostic results supporting the discharge/admit diagnosis, lab results, radiology results, the need for outpatient follow up, to return to the emergency department if symptoms worsen or persist or if there are any questions or concerns that arise at home. Response to treatment: the patient's symptoms have markedly improved after treatment, and as a result, I will discharge patient. ED course: Bedside ultrasound performed and balloon inflated in bladder with good urine return and pain free. . 01/02 19:20 Order name: CBC with Diff; Complete Time: 20:50 rn 01/02 19:20 Order name: Urine Culture rn 01/02 19:20 Order name: Urine Microscopic Only; Complete Time: 22:05 rn 01/02 19:20 Order name: CMP; Complete Time: 21:03 rn 01/02 19:20 Order name: Lipase; Complete Time: 21:03 rn 01/02 19:21 Order name: Blood Culture Adult (2) rn 01/02 19:20 Order name: XRAY Knee LEFT 3 view; Complete Time: 21:02 rn 01/02 19:20 Order name: XRAY Knee RIGHT 3 view; Complete Time: 21:02 rn 01/02 19:20 Order name: CT Abd/Pelvis - IV Contrast Only rn 01/02 19:21 Order name: XRAY Chest (1 view); Complete Time: 20:52 rn 01/02 19:21 Order name: CT Head Brain wo Cont rn 01/02 19:21 Order name: Lactate; Complete Time: 20:50 rn 01/02 19:25 Order name: Abdomen ; Complete Time: 22:26 EDMS 01/02 22:00 Order name: Urine Dipstick-Ancillary; Complete Time: 22:05 EDMS 01/02 19:20 Order name: IV Start; Complete Time: 20:23 rn 01/02 19:20 Order name: Urine Dipstick-Ancillary (obtain specimen); Complete Time: 22:46 rn 01/02 19:20 Order name: EKG; Complete Time: 19:21 rn 01/02 19:20 Order name: EKG - Nurse/Tech; Complete Time: 20:49 rn 01/02 19:20 Order name: Labs collected and sent; Complete Time: 20:23 rn 01/02 19:27 Order name: Head Brain Wo Cont; Complete Time: 22:26 EDMS EC:08 Rate is 74 beats/min. Rhythm is regular. QRS [place] is Normal. DC interval is normal. QRS rn interval is normal. QT interval is normal. No Q waves. T waves are Normal. No ST changes noted. Clinical impression: Normal ECG. Interpreted by me. Reviewed by me. Administered Medications: 21:11 Drug: NS 0.9% 1000 ml Route: IV; Rate: 1000 ml; Site: right antecubital; sm5 22:15 Follow up: IV Status: Completed infusion; IV Intake: 1000ml sm5 Disposition Summary: 01/02/22 23:36 Discharge Ordered Location: Home rn Problem: new rn Symptoms: have improved rn Condition: Stable rn Diagnosis - Displacement of urinary (indwelling) catheter rn Followup: rn - With: Private Physician - When: As needed - Reason: Recheck today's complaints, Re-evaluation by your physician Discharge Instructions: - Discharge Summary Sheet rn - Indwelling Urinary Catheter Care, Adult rn Forms: - Medication Reconciliation Form rn - Thank You Letter rn - Antibiotic turnstile attendant - Prescription Opioid Use rn Prescriptions: - Bactrim DS 800-160 mg Oral Tablet - take 1 tablet by ORAL route every 12 hours for 10 days; 20 tablet; Refills: 0, rn Product Selection Permitted Signatures: Dispatcher [employer] EDDaren Roland MD MD rn Attema, Lee, SHARK BIOLOGIST-C SHARK BIOLOGIST-Cla1 Liz Estevez, RN RN tw2 Jennifer Wyatt, RN RN sm5
[2022-01-03 01:02] VITALS: TEMP 97.8
[2022-01-03 01:05] VITALS: BP 115/64; O2SAT 100
--- NOTE | 2022-01-03 10:32 | EKG ---
Test Date: 2022-01-02 Test Time: 20:47:55 [employer] Supervisor: BALDO MEASUREMENT RESULTS: Intervals: Rate: 74 [place]: 160 QRSD: 82 QT: 382 QTc: 424 [place]: P: 75 OH: 160 QRS: 37 T: 62 INTERPRETIVE STATEMENTS: Normal sinus rhythm Normal ECG Compared to ECG 12/19/2021 15:37:10 No significant changes Electronically Signed On 01-03-22 10:31:19 CDT by Luiz Hendrix
== END 2022-01-03 00:01 | disposition home or self-care (01) ==
LOC: ER 18:02
DX: T83.021A Displacement of indwelling urethral catheter, initial encounter (principal); R41.0 Disorientation, unspecified; M25.562 Pain in left knee; M25.561 Pain in right knee; W18.30XA Fall on same level, unspecified, initial encounter; I10 Essential (primary) hypertension
CPT/HCPCS: 93005; 87040 ×2; 87088; 85025; 87086; 36415; 83605; 87077; 87186; 83690; 80053; 70450; 74177; 71045; 73562 ×2; 96360; 99284; Q9967; J7030; 81003; 81015

== ENCOUNTER 2022-05-25 13:23 | Emergency (ER) | payer OTHER ==
--- OUTSIDE RECORDS SUMMARY | 2022-05-25 13:40 | XMS REPORT | Continuity of Care Document ---
:1955 Author Organization [facility] t Address [address] [place] [address] Support Name Relationship Address Phone [place], [facility] N [address] [place] [address] [facility], [facility] [address] [phone] [place] [address] [place], [facility] [address] [place] [place], [place] [id number] [place] [address], [facility] [address] [phone] [place] [address] FAYE), [facility] [address] Unavaila [facility] ([place], [place] [address] [place] [address] (Joselyn Coyanosa), [place] [address] [phone] [place] [address] FAYE), [facility] N [address] Jacy vailable LIVING ([place], [place] [id number] [place] [address] ([facility] [address] [phone] FAYE), [place], [place] [id number] [place] [address]), [facility] N [address] [facility] [place] [address] Unavailable LIVING ([place] [address] [facility] living ([facility] [address] [facility] [address] FAYE), [place] [address] Care Team Providers Name Role Phone PCP, PATIENT DOES NOT HAVE A Primary Care Physician KING Monaco Attending Clinician Unavailable King Walden MD Attending Clinician FLOR THACKER Attending Clinician Unavailable Flor Thacker MD Attending Clinician Ho Willson DO Attending Clinician RADIOLOGY Attending Clinician Unavailable Radiology Attending Clinician Unavailable Lab, [facility] Attending Clinician Unavailable KORI CAUSEY Attending Clinician Unavailable Kori Jenkins Attending Clinician Doctor Unassigned, [place] Attending Clinician Unavailable CHUN PINEDA Attending Clinician Unavailable SAUD Attending Clinician Unavailable Pob, Adc Lab Main Attending Clinician Unavailable Rc Dozier MD Attending Clinician RC DOZIER Attending Clinician Unavailable JOANNE MCKEON Attending Clinician Unavailable Joanne Mckeon MD Attending Clinician KING WALDEN Admitting Clinician Unavailable KELLY SARAH Admitting Clinician Unavailable SAUD Admitting Clinician Unavailable Payers Payer Name Policy Type Policy Number Effective Date Expiration Date S perla MEDICARE PART A [id number] 1976 \T\ B 00:00:00 [place]ID OF [place] [id number] 2013 00:00:00 Problems Condition Condition Condition Status Onset Resolution Last Treating Co mments Source Name Details Category Date Date Treatment Clinician Date Problem Problem Disease Active Univers with Macario with Macario 01-04 [place] y of catheter[place], [place] 00 Medical encounter encounter Bran ch Allergies, Adverse Reactions, Alerts Allergy Allergy Status Severity Reaction(s) Onset Inactive Treating Comm ents Source Name Type Date Date Clinician TUBERCUL DRUG Active Unknown-Cmnt Un milan IN HETAL 9-14 ity of 00:00: [place] 00 Medical Branch Tubercul Propensi Active Unknown - 0 Cargiver U nivers in Hetal ty to See comments 9-14 Unable to ity of adverse 00:00: provide [place] reaction 00 answer Medical s Branch Social History Social Habit Start Date Stop Date Quantity Comments Source Exposure to 2022-05-12 2022-05-22 Not sure [facility] SARS-CoV-2 (event) 00:00:00 14:02:00 Medica l Branch [facility][birth year] At [birth year] [facility] [place] 00:[facility] 00:00:00 Medical Branch Smoking Status Start Date Stop Date Source Tobacco smoking consumption [facility] Branch Medications Ordered Filled Start Stop Current Ordering Indication Dosage Frequency Signature Comments Components Source Medication Medication Date Date Medication? Clinician (SIG) Name Name kumar 2021-06- No [id number] 100mL 100 mL, Univers (ISOVUE 0-15 10-15 Intravenou ity o f 370-500 mL) 03:00: 02:09 s, ONCE, 1 [place] injection 00 :00 dose, On Medica l 100 mL Fri Branch 03/15/22 at 2200, Routine levothyroxi 2021- No 50ug Take 50 Un milan ne 50 mcg 11-27 mcg by ity of tablet 00:00: 04:59 mouth. [place] 00 :00 Medical Branch rosuvastati 2021- No 5mg Take 5 mg Univers n 5 mg 11-27 by mouth. ity of tablet 00:00: 04:59 [place] 00 :00 Medical Branch clomiPRAMIN 2020-06 Yes Univer s E 25 mg 1-27 ity of capsule 00:00: [place] Medical [facility] clomiPRAMIN 2020-06 Yes Univer s E 25 mg 1-27 ity of capsule 00:00: [place] [address] Medical Branch clomiPRAMIN 2020-06 Yes Univer s E 25 mg 1-27 ity of capsule 00:00: [place] Medical Branch clomiPRAMIN 2020-06 Yes Univer s E 25 mg 1-27 ity of capsule 00:00: [place] [address] Medical Branch clomiPRAMIN 2020-06 Yes Univer s E 25 mg 1-27 ity of capsule 00:00: [place] Medical Branch clomiPRAMIN 2020-06 Yes Univer s E 25 mg 1-27 ity of capsule 00:00: [place] [address] Medical Branch clomiPRAMIN 2020-06 Yes Univer s E 25 mg 1-27 ity of capsule 00:00: [place] [address] Medical Branch clomiPRAMIN 2020-06 Yes Univer s E 25 mg 1-27 ity of capsule 00:00: [address] Branch clomiPRAMIN 2020-06 Yes Univer s E 25 mg 1-27 ity of capsule 00:00: [place] [address] Medical Branch clomiPRAMIN 2020-06 Yes Univer s E 25 mg 1-27 ity of capsule 00:00: [place] 00 Medical Branch clomiPRAMIN 2020-06 Yes Univer s E 25 mg 1-27 ity of capsule 00:00: [place] [facility] LORazepam 2 2020-06 Yes Univer s mg tablet 1-04 ity of 00:00: Medical Branch LORazepam 2 2020-06 Yes Univer s mg tablet 1-04 ity of 00:00: Medical Branch LORazepam 2 2020-06 Yes Univer s mg tablet 1-04 ity of 00:00: Medical Branch LORazepam 2 2020-06 Yes Univer s mg tablet 1-04 ity of 00:00: [place] [facility] LORazepam 2 2020-06 Yes Univer s mg tablet 1-04 ity of 00:00: [place] [facility] LORazepam 2 2020-06 Yes Univer s mg tablet 1-04 ity of 00:00: [place] [facility] LORazepam 2 2020-06 Yes Univer s mg tablet 1-04 ity of 00:00: [place] [facility] LORazepam 2 2020-06 Yes Univer s mg tablet 1-04 ity of 00:00: [place] [facility] LORazepam 2 2020-06 Yes Univer s mg tablet 1-04 ity of 00:00: [place] [facility] LORazepam 2 2020-06 Yes Univer s mg tablet 1-04 ity of 00:00: [place] [facility] LORazepam 2 2020-06 Yes Univer s mg tablet 1-04 ity of 00:00: [place] 00 Medical Branch icosapent 2020-06 Yes 1{capsu Take 1 Uni vers ethyL 1 0-21 le} capsule by ity of gram 00:00: mouth in [place] capsule 00 the Medical morning Branch and 1 capsule in the evening. icosapent 2020-06 Yes 1{capsu Take 1 Uni vers ethyL 1 0-21 le} capsule by ity of gram 00:00: mouth in [place] capsule 00 the Medical morning Branch and 1 capsule in the evening. icosapent 2020-06 Yes 1{capsu Take 1 Uni vers ethyL 1 0-21 le} capsule by ity of gram 00:00: mouth in [place] capsule 00 the Medical morning Branch and 1 capsule in the evening. icosapent 2020-06 Yes 1{capsu Take 1 Uni vers ethyL 1 0-21 le} capsule by ity of gram 00:00: mouth in [place] capsule 00 the Medical morning Branch and 1 capsule in the evening. icosapent 2020-06 Yes 1{capsu Take 1 Uni vers ethyL 1 0-21 le} capsule by ity of gram 00:00: mouth in [place] capsule 00 the Medical morning Branch and 1 capsule in the evening. icosapent 2020-06 Yes 1{capsu Take 1 Uni vers ethyL 1 0-21 le} capsule by ity of gram 00:00: mouth in [place] capsule 00 the Medical morning Branch and 1 capsule in the evening. icosapent 2020-06 Yes 1{capsu Take 1 Uni vers ethyL 1 0-21 le} capsule by ity of gram 00:00: mouth in [place] capsule 00 the Medical morning Branch and 1 capsule in the evening. icosapent 2020-06 Yes 1{capsu Take 1 Uni vers ethyL 1 0-21 le} capsule by ity of gram 00:00: mouth in [place] capsule 00 the Medical morning Branch and 1 capsule in the evening. icosapent 2020-06 Yes 1{capsu Take 1 Uni vers ethyL 1 0-21 le} capsule by ity of gram 00:00: mouth in [place] capsule 00 the Medical morning Branch and 1 capsule in the evening. icosapent 2020-06 Yes 1{capsu Take 1 Uni vers ethyL 1 0-21 le} capsule by ity of gram 00:00: mouth in [place] capsule 00 the Medical morning Branch and 1 capsule in the evening. icosapent 2020-06 Yes 1{capsu Take 1 Uni vers ethyL 0-21 le} capsule by ity of (VASCEPA) 1 00:00: [place] in [place] gram 00 the Medical capsule morning Branch and 1 capsule in the evening. tamsulosin 2020-0 Yes Univers 0.4 mg 24 9-28 ity of hr capsule 00:00: Medical Branch tamsulosin 2020-0 Yes Univers 0.4 mg 24 9-28 ity of hr capsule 00:00: Medical Branch tamsulosin 2020-0 Yes Univers 0.4 mg 24 9-28 ity of hr capsule 00:00: [facility] Branch tamsulosin 2020-0 Yes Univers 0.4 mg 24 9-28 ity of hr capsule 00:00: [place] [facility] tamsulosin 1-0 Yes Univers 0.4 mg 24 9-28 ity of hr capsule 00:00: [place] [facility] tamsulosin 2020-0 Yes Univers 0.4 mg 24 9-28 ity of hr capsule 00:00: [place] Medical [facility] tamsulosin 2020-0 Yes Univers 0.4 mg 24 9-28 ity of hr capsule 00:00: [place] [facility] tamsulosin 2020-0 Yes Univers 0.4 mg 24 9-28 ity of hr capsule 00:00: [place] [facility] tamsulosin 2020-0 Yes Univers 0.4 mg 24 9-28 ity of hr capsule 00:00: [place] [address] Medical Branch tamsulosin 2020-0 Yes Univers 0.4 mg 24 9-28 ity of hr capsule 00:00: [place] [address] Medical Branch tamsulosin 2020-0 Yes Univers 0.4 mg 24 -28 ity of hr capsule 00:00: [place] [address] Medical Branch fluvoxaMINE 2020-0 Yes Univer s 100 mg 9-20 ity of tablet 00:00: [place] [facility] fluvoxaMINE 2020-0 Yes Univer s 100 mg 9-20 ity of tablet 00:00: [place] [address] Medical Branch fluvoxaMINE 2020-0 Yes Univer s 100 mg 9-20 ity of tablet 00:00: [place] [address] Medical Branch fluvoxaMINE 2020-0 Yes Univer s 100 mg 9-20 ity of tablet 00:00: [place] [address] Medical Branch fluvoxaMINE 1-0 Yes Univer s 100 mg 9-20 ity of tablet 00:00: [place] [address] Medical Branch fluvoxaMINE 1-0 Yes Univer s 100 mg 9-20 ity of tablet 00:00: [place] [address] Medical Branch fluvoxaMINE 1-0 Yes Univer s 100 mg 9-20 ity of tablet 00:00: [place] [address] Medical Branch fluvoxaMINE 1-0 Yes Univer s 100 mg 9-20 ity of tablet 00:00: [place] [address] Medical Branch fluvoxaMINE 1-0 Yes Univer s 100 mg 9-20 ity of tablet 00:00: [place] [address] Medical Branch fluvoxaMINE 1-0 Yes Univer s 100 mg 9-20 ity of tablet 00:00: [place] 00 Medical Branch fluvoxaMINE 0 Yes Univer s 100 mg 9-20 ity of tablet 00:00: [place] Medical Branch cyanocobala Yes Take 2 po U nivers min, 9-15 each Day ity of vitamin 00:00: [place] B-12, 2,500 00 Medical mcg Tab Branch cyanocobala Yes Take 2 po U nivers min, 9-15 each Day ity of vitamin 00:00: [place] B-12, 2,500 00 Medical mcg Tab Branch cyanocobala Yes Take 2 po U nivers min, 9-15 each Day ity of vitamin 00:00: [place] B-12, 2,500 00 Medical mcg Tab Branch cyanocobala Yes Take 2 po U nivers min, 9-15 each Day ity of vitamin 00:00: [place] B-12, 2,500 00 Medical mcg Tab Branch cyanocobala Yes Take 2 po U nivers min, 9-15 each Day ity of vitamin 00:00: [place] B-12, 2,500 00 Medical mcg Tab Branch cyanocobala Yes Take 2 po U nivers min, 9-15 each Day ity of vitamin 00:00: [place] B-12, 2,500 00 Medical mcg Tab Branch cyanocobala Yes Take 2 po Univers min, 9-15 each Day ity of vitamin 00:00: [place] B-12, 2,500 00 Medical mcg Tab Branch cyanocobala Yes Take 2 po U nivers min, 9-15 each Day ity of vitamin 00:00: [place] B-12, 2,500 00 Medical mcg Tab Branch cyanocobala Yes Take 2 po U nivers min, 9-15 each Day ity of vitamin 00:00: [place] B-12, 2,500 00 Medical mcg Tab Branch cyanocobala 0 Yes Take 2 po U nivers min, 9-15 each Day ity of vitamin 00:00: [place] B-12, 2,500 00 Medical mcg Tab Branch cyanocobala Yes Take 2 po U nivers min, 9-15 each Day ity of vitamin 00:00: [place] B-12, 2,500 00 Medical [facility] Tab Branch metformin Yes TAKE 2 Univer s ER 500 mg 8-04 TABLETS ity of 24 hr 00:00: (1000MG) [place] tablet 00 BY MOUTH Medical EVERY Branch MORNING WITH BREAKFAST; TAKE 1 TABLET BY MOUTH EVERY EVENING WITH DINNER metformin Yes TAKE 2 Univer s ER 500 mg 8-04 TABLETS ity of 24 hr 00:00: (1000MG) [place] tablet 00 BY MOUTH Medical EVERY Branch MORNING WITH BREAKFAST; TAKE 1 TABLET BY MOUTH EVERY EVENING WITH DINNER metformin Yes TAKE 2 Univer s ER 500 mg 8-04 TABLETS ity of 24 hr 00:00: (1000MG) [place] tablet 00 BY MOUTH Medical EVERY Branch MORNING WITH BREAKFAST; TAKE 1 TABLET BY MOUTH EVERY EVENING WITH DINNER metformin Yes TAKE 2 Univer s ER 500 mg 8-04 TABLETS ity of 24 hr 00:00: (1000MG) [place] tablet 00 BY MOUTH Medical EVERY Branch MORNING WITH BREAKFAST; TAKE 1 TABLET BY MOUTH EVERY EVENING WITH DINNER metformin Yes TAKE 2 Univer s ER 500 mg 8-04 TABLETS ity of 24 hr 00:00: (1000MG) [place] tablet 00 BY MOUTH Medical EVERY Branch MORNING WITH BREAKFAST; TAKE 1 TABLET BY MOUTH EVERY EVENING WITH DINNER metformin Yes TAKE 2 Univer s ER 500 mg 8-04 TABLETS ity of 24 hr 00:00: (1000MG) [place] tablet 00 BY MOUTH Medical EVERY Branch MORNING WITH BREAKFAST; TAKE 1 TABLET BY MOUTH EVERY EVENING WITH DINNER metformin Yes TAKE 2 Univer s ER 500 mg 8-04 TABLETS ity of 24 hr 00:00: (1000MG) [place] tablet 00 BY MOUTH Medical EVERY Branch MORNING WITH BREAKFAST; TAKE 1 TABLET BY MOUTH EVERY EVENING WITH DINNER metformin Yes TAKE 2 Univer s ER 500 mg 8-04 TABLETS ity of 24 hr 00:00: (1000MG) [place] tablet 00 BY MOUTH Medical EVERY Branch MORNING WITH BREAKFAST; TAKE 1 TABLET BY MOUTH EVERY EVENING WITH DINNER metformin Yes TAKE 2 Univer s ER 500 mg 8-04 TABLETS ity of 24 hr 00:00: (1000MG) [place] tablet 00 BY MOUTH Medical EVERY Branch MORNING WITH BREAKFAST; TAKE 1 TABLET BY MOUTH EVERY EVENING WITH DINNER metformin Yes TAKE 2 Univer s ER 500 mg 8-04 TABLETS ity of 24 hr 00:00: (1000MG) [place] tablet 00 BY MOUTH Medical EVERY Branch MORNING WITH BREAKFAST; TAKE 1 TABLET BY MOUTH EVERY EVENING WITH DINNER metformin Yes TAKE 2 Univer s ER 500 mg 8-04 TABLETS ity of 24 hr 00:00: (1000MG) [place] tablet 00 BY MOUTH Medical EVERY Branch MORNING WITH BREAKFAST; TAKE 1 TABLET BY MOUTH EVERY EVENING WITH DINNER Vital Signs Vital Name Observation Time Observation Value Comments Source Systolic blood 2022-05-16 19:36:00 95 mm[Hg] Univer sity of pressure [facility] Diastolic blood 2022-05-16 19:36:00 63 mm[Hg] Unive rsity of [facility] Heart rate 2022-05-16 19:36:00 93 /min Universi ty of [facility] Body height 2022-05-16 19:36:00 170.2 cm Universi ty of [facility] Body weight 2022-05-16 19:36:00 72.666 kg Universi ty of [facility] BMI 2022-05-16 19:36:00 25.09 kg/m2 Universi ty [facility] Oxygen saturation in 2022-05-16 19:36:00 99 /min University of Arterial blood by [employer] lamar Pulse oximetry Branch Systolic blood 2022-03-15 23:47:00 93 mm[Hg] Univer sity of [facility] Medical [place] Diastolic blood 2022-03-15 23:47:00 57 mm[Hg] Unive rsity of [place] Heart rate 2022-03-15 23:47:00 89 /min Universi ty of [place] Medical [place] Body temperature 2022-03-15 23:47:00 37.17 Cassandra Univ ersity of [facility] Respiratory rate 2022-03-15 23:47:00 14 /min Univ ersity of [facility] Body weight 2022-03-15 23:47:00 76.703 kg Universi ty of [facility] BMI 2022-03-15 23:47:00 26.48 kg/m2 Universi ty of [facility] Oxygen saturation in 2022-03-15 23:47:00 98 /min University of Arterial blood by [employer] lamar Pulse oximetry Branch Systolic blood 2022-03-12 19:02:00 108 mm[Hg] Univer sity of pressure [place] [facility] [place] Diastolic blood 2022-03-12 19:02:00 69 mm[Hg] Unive rsity of pressure [facility] Branch Heart rate 2022-03-12 19:02:00 101 /min Universi ty of [place] Medical Branch Respiratory rate 2022-03-12 19:02:00 25 /min Univ ersity of [place] [facility] [place] Body height 2022-03-12 19:02:00 170.2 cm Universi ty of [place] [facility] [place] Body weight 2022-03-12 19:02:00 78.109 kg Universi ty of [facility] BMI 2022-03-12 19:02:00 26.97 kg/m2 Universi ty of [facility] Oxygen saturation in 2022-03-12 19:02:00 93 /min University of Arterial blood by [facility] Pulse oximetry Branch Systolic blood 2022-02-13 15:08:00 96 mm[Hg] Univer sity of pressure [facility] Diastolic blood 2022-02-13 15:08:00 69 mm[Hg] Unive rsity of pressure [facility] Heart rate 2022-02-13 15:08:00 87 /min Universi ty of [facility] Body temperature 2022-02-13 15:08:00 37.06 Cassandra [facility] 2022-02-13 15:08:00 18 /min Univ ersity of [place] [facility] [place] Body height 2022-02-13 15:08:00 170.2 cm Universi ty of [place] [facility] [place] Body weight 2022-02-13 15:08:00 77.565 kg Universi ty of [facility] BMI 2022-02-13 15:08:00 26.78 kg/m2 Universi ty [facility] Oxygen saturation in 2022-02-13 15:08:00 99 /min University of Arterial blood by [place] [employer] lamar Pulse oximetry Branch Procedures Procedure Date / Time Performing Clinician Source Performed HB ECG ROUTINE & RHYTHM 2022-05-16 19:45:39 King Walden [facility] CT ABDOMEN PELVIS W 2022-03-16 02:12:29 Ho Willson Universi ty of [facility] ASSIGNMENT OF BENEFITS 2022-03-15 23:54:36 Doctor Unassigned, Un [facility] [place] [facility] NOTICE OF PRIVACY 2022-03-15 23:19:24 Doctor Unassigned, [facility] PRACTICES [place] [facility] CONSENT/REFUSAL FOR 2022-03-15 23:18:16 Doctor Unassigned, [facility] DIAGNOSIS AND TREATMENT [place] [facility] US RETROPERITONEAL 2022-03-15 20:34:02 Flor Thacker [facility] COMPLETE Medical Branch US ABDOMEN LIMITED 2022-03-13 16:09:33 Requisition, Paper [facility] Medical [place] CONSENT/REFUSAL FOR 2022-03-13 15:44:55 Doctor Unassigned, [facility] DIAGNOSIS AND TREATMENT [place] [facility] ASSIGNMENT OF BENEFITS 2022-03-13 15:42:41 Doctor Unassigned, [facility] [place] [facility] Encounters Start End Encounter Admission Attending Care Care Encounter Source Date/Time Date/Time Type Type Clinicians Facility Department ID 2021-12-27 Outpatient STLMLC STLMLC [id number] Common 14:17:02 [facility] 2021-08-13 Outpatient STLMLC STLMLC [id number] Common 15:27:02 12299 [facility] 2021-06-27 Outpatient STLMLC STLMLC [id number] Common 13:16:53 [id number] [facility] 2022-07-17 2022-07-17 Outpatient Cary WALDEN [facility] [id number] Univers 13:00:00 13:00:00 SENDIL [facility] 2022-05-22 2022-05-22 Outpatient Cary WALDEN [facility] [id number] Univers 14:00:00 23:59:00 SENDIL ity [facility] 2022-05-22 2022-05-22 Outpatient Cary WALDEN [facility] [id number] Univers 14:00:00 14:00:00 SENDIL ity [facility] 2022-05-16 2022-05-16 Outpatient Cary WLADEN [facility] [id number] Univers 13:30:00 14:03:24 [facility] 2022-05-16 Office [facility] [id number] Univers 13:30:00 14:03:24 Visit King CANDELARIO [id number] ity of [place] [id number] [facility] [id number] Tx dical NAL 059 Branch [facility] 2022-05-14 2022-05-14 Outpatient [facility] [id number] Univers 13:00:00 13:00:00 BILAL ity [facility] 2022-04-02 2022-04-02 Outpatient Cary [facility] [id number] Univers 10:30:00 10:30:00 BILAL ity [facility] 2022-04-02 2022-04-02 Telephone [facility] [id number] Univers 00:00:00 00:00:00 [facility] [id number] it y of [place] [id number] [place] [address] [id number] [facility] PRIMARY & 204 Branch SPECIALTY CARE 2022-03-15 2022-03-15 Emergency [facility] [id number] Univers 18:52:00 22:22:00 Ho CANDELARIO [id number] i ty of [place] [id number] [facility] [id number] [facility] 084 Branch 2022-03-15 2022-03-15 Outpatient Cary [facility] [id number] Univers 14:19:14 18:51:00 BILAL ity [facility] 2022-03-15 2022-03-15 Outpatient [facility] [id number] Univers 14:19:14 18:51:00 BILAL ity [facility] 2022-03-15 2022-03-15 [facility] [id number] Univers 14:19:14 18:51:00 Encounter Flor CANDELARIO [id number] ity of [place] [id number] [facility] [id number] [facility] 806 Branch 2022-03-13 2022-03-13 Outpatient R RADIOLOGY [facility] [id number] Univers 10:42:53 23:59:00 ity of [facility] 2022-03-13 2022-03-13 Hospital Radiology [facility] [id number] Univers 10:42:53 23:59:00 Encounter KODAK [id number] ity of [place] [id number] [facility] [id number] [facility] 806 Branch 2022-03-12 2022-03-12 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, [facility] [id number] Univers 14:45:00 15:00:00 Visit Kedar [facility] [id number] ity [facility] [id number] [place] [address] [id number] [facility] PRIMARY & 357 Branch SPECIALTY CARE 2022-03-12 2022-03-12 Outpatient R KEDAR [facility] [id number] Univers 14:00:00 14:34:23 BILAL ity of [facility] 2022-03-12 2022-03-12 Office [facility] [id number] Univers 14:00:00 14:34:23 Visit [facility] [id number] it y of [place] [id number] [place] [address] [id number] [facility] PRIMARY & 204 Branch SPECIALTY CARE 2022-02-13 2022-02-13 Outpatient R LIV [facility] [id number] Univers 10:00:00 11:08:43 KORI ity o f [facility] 2022-02-13 2022-02-13 Office [facility] [id number] Univers 10:00:00 11:08:43 Visit Kori CANDELARIO [id number] ity of [facility] [id number] [facility] [id number] [place] dical [facility] 204 Branch BUILDING 2022-02-13 2022-02-13 Orders Doctor SARMIENTO [id number] Univers 00:00:00 00:00:00 Only Unassigned, MARY [id number] ity of [place] [facility] [id number] Ender as [id number] [address] 2022-01-04 2022-01-04 Emergency X CARMENVACary, [facility] ERT [id number] Univers 21:29:00 22:52:00 AMBICA ity of [facility] 2022-01-04 2022-01-04 Emergency [facility] [id number] Univers 21:29:00 22:52:00 Chun CANDELARIO [id number] i ty of [place] [id number] [place] [id number] [facility] [address] [place] 2021-12-12 2021-12-12 Outpatient GAGAN_WAQAS RAMIRES [facility] [id number] [facility] 11:05:00 11:05:00 HN [id number] da [facility] 2020-11-14 2020-11-14 Orders Doctor GUILLERMINA [id number] Univers 00:00:00 00:00:00 Only Unassigned, MARY [id number] ity of [place] [facility] [id number] Ender as [id number] [address] 2020-09-04 2020-09-04 Orders Doctor SARMIENTO [id number] Univers 00:00:00 00:00:00 Only Unassigned, MARY [id number] ity of [place] [facility] [id number] Ender as [id number] [id number] [address] 2020-06-21 2020-06-21 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, 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 Lab Main [facility] 1.2.8 40.114 [id number] Univers 11:51:27 12:06:27 Visit Rc Dozier [id number] [id number] [phone] [facility] 2020-06-21 2020-06-21 Outpatient Cary DOZIER [facility] [id number] Univers 12:00:00 12:00:00 RC mcpherson [facility] 2020-06-21 2020-06-21 Orders Doctor GUILLERMINA [id number] Univers 00:00:00 00:00:00 Only Unassigned, MARY [id number] ity of [place] [facility] [id number] Ender as [phone] [address] 2020-06-15 2020-06-15 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, Adc Lab Main [facility] 1.2.8 40.114 [id number] Univers 09:08:20 09:23:20 Visit Rc Dozier [id number] ity [phone] [place] [address] 2020-06-15 2020-06-15 [facility] [id number] Univers 09:15:00 09:15:00 RC mcpherson [facility] 2020-06-15 2020-06-15 Orders Doctor SARMIENTO [id number] Univers 00:00:00 00:00:00 Only Unassigned, MARY [id number] ity of [place] [facility] [id number] Ender as [phone] [address] 2020-06-01 2020-06-01 Outpatient Cary MCKEON [facility] [id number] Univers 16:45:00 16:45:00 JOANNE mcpherson [facility] 2020-06-01 2020-06-01 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
[2022-05-25] MEDS ORDERED: LIDOCAINE 1% MPF 5 ML VIAL ONE (13:47)
[2022-05-25 14:02] LABS: Absolute Lymphocytes (CBC) 1.3 K/uL (0.7-4.9); Hematocrit 31.7 % (39.6-49.0); Lymphocytes % 12.4 % (15.3-44.8); MCV 83.4 fL (80-100); MPV 5.8 fL (7.6-11.3)
--- NOTE | 2022-05-25 14:18 | RAD REPORT ---
EXAM DESCRIPTION: CT - [id number] - 05/25/2022 2:11 pm CLINICAL HISTORY: Trauma, head and neck injury. fall, head injury COMPARISON: Knee Right 3 View dated 01/02/2022 TECHNIQUE: Axial 5 mm thick images of the head were obtained. Axial 2 mm thick images of the cervical spine were obtained with sagittal and coronal reconstruction images generated and reviewed. All CT scans are performed using dose optimization technique as appropriate and may include automated exposure control or mA/KV adjustment according to patient size. FINDINGS: CT HEAD WITHOUT CONTRAST: No acute hemorrhage, hydrocephalus or extra-axial collection is identified.Mild generalized brain atr ophy.No areas of brain edema or midline shift. The paranasal sinuses and mastoids are clear.The calvarium is intact. CT CERVICAL SPINE WITHOUT CONTRAST: No fracture or subluxation.No prevertebral soft tissues swelling is identified. IMPRESSION: No acute intracranial or cervical spine findings.
[2022-05-25 14:24] LABS: Albumin 2.7 g/dL (3.4-5.0); Bilirubin Total 0.4 mg/dL (0.2-1.0); Magnesium 1.6 mg/dL (1.6-2.4); Potassium 4.3 mmol/L (3.5-5.1); Protein, Total 6.5 g/dL (6.4-8.2); Troponin High Sensitivity 4.6 pg/mL (<58.9)
[2022-05-25] MEDS ORDERED: NA CHLORIDE 0.9% 1,000 ML ONE (16:16)
[2022-05-25] MEDS ORDERED: NA CHLORIDE 0.9% 500 ML ONE (20:52)
[2022-05-25 21:23] LABS: Urine Blood 1+ (Negative); Urine Glucose Negative (Negative); Urine Protein 1+ (Negative); Urine Specific Gravity 1.015 (1.005-1.030); Urine pH 8.5 (5.0-7.0)
[2022-05-25 21:43] LABS: Urine Bacteria None Seen /HPF (<20); Urine Crystals Unidentified Few /HPF (None Seen); Urine RBC 21-50 /HPF (None Seen); Urine Triple Phosphate Crystal Moderate /HPF (None Seen)
--- NOTE | 2022-05-25 22:04 | ER ---
Nurse's Notes [facility] Name: Wilder Alvarez Age: 67 yrs Sex: Male : 1955 Arrival Date: 05/25/2022 Time: 13:26 Bed 18 Private MD: Diagnosis: Facial laceration;UTI/ Urinary tract infection, site not specified Presentation: 05/25 13:38 Chief complaint: EMS states: patients caregiver called, said she heard him fall in the ko1 kitchen, no LOC, his mentation is normal for him. Coronavirus screen: At this time, the client does not indicate any symptoms associated with coronavirus-19. Ebola Screen: No symptoms or risks identified at this time. Initial Sepsis Screen: Does the patient meet any 2 criteria? Systolic BP < 90 mmHg. Mean Arterial Pressure (MAP) < 65. Yes Does the patient have a suspected source of infection? No. Patient's initial sepsis screen is negative. Risk Assessment: Do you want to hurt yourself or someone else? Patient reports no desire to harm self or others. Onset of symptoms was May 25, 2022. 13:38 Method Of Arrival: EMS: [facility] ko1 13:38 Acuity: [place] 2 ko1 Triage Assessment: 13:40 General: Appears in no apparent distress. uncomfortable, Behavior is calm, cooperative, ko1 inappropriate for age. Pain: Complains of pain in forehead and right eye. Historical: - Allergies: 13:40 TB shot; ko1 13:40 tuberculin,PPD,multi-puncture; ko1 - Home Meds: 13:40 clomipramine 75 mg Oral cap [Active]; fluvoxamine 100 mg Oral cp24 1 cap three times a ko1 day [Active]; lisinopril-hydrochlorothiazide 10-12.5 mg Oral tab 1 tab once daily for Hypertension [Active]; metformin 500 mg Oral tab 1 tab 2 times per day [Active]; VESCEPA 1 GM BY MOUTH TWICE DAILY [Active]; - PMHx: 13:40 Hypertensive disorder; Hypothyroidism; MILD MENTAL RETARDATION; Obsessive compulsive ko1 disorder; - Immunization history:: Adult Immunizations unknown. - Social history:: Smoking status: Patient denies any tobacco usage or history of. Screenin:00 [facility] ED Fall Risk Assessment (Adult) History of falling in the last 3 months, ko1 including since admission Yes- single mechanical fall (1 pt) Confusion or Disorientation Yes (5 pts) Intoxicated or Sedated No (0 pts) Impaired Gait Yes (1 pt) Mobility Assist Device Used No (0 pt) Altered Elimination Yes (1 pt) Score/Fall Risk Level 3 or more points = High Risk Oriented to surroundings, Maintained a safe environment, Educated pt \T\ family on fall prevention, incl call for assistance when getting out of bed, Assessed \T\ reinforced patient's understanding of fall precautions, Provided non-skid footwear, Hourly rounding (assess needs \T\ fall precautionary measures) done, Used ambulatory aids as needed (educated on \T\ assisted with), Used gait belt as appropriate Implemented a Fall Risk Plan of Care, Apply high fall risk patient identification: yellow non skid footwear/ fall signage. 14:00 Abuse screen: Denies threats or abuse. Denies injuries from another. Nutritional ko1 screening: No deficits noted. Tuberculosis screening: No symptoms or risk factors identified. Assessment: 13:40 General: Appears in no apparent distress. uncomfortable, Behavior is calm, cooperative. ko1 Pain: Complains of pain in right eye and forehead. Neuro: No deficits noted. Cardiovascular: No deficits noted. Respiratory: No deficits noted. GI: No deficits noted. : suprapubic catheter in place. EENT: No deficits noted. Derm: No deficits noted. Musculoskeletal: No deficits noted. Injury Description: Laceration sustained to right eye a small amount of bleeding noted at this time. 19:35 General: Appears comfortable, Behavior is calm, cooperative. Pain: Complains of pain in ha1 face and right eye Pain does not radiate. Pain currently is 3 out of 10 on a pain scale. Neuro: Level of Consciousness is awake, alert, Oriented to person, place. Cardiovascular: Capillary refill < 3 seconds Patient's skin is warm and dry. Respiratory: Airway is patent Respiratory effort is even, unlabored, Respiratory pattern is regular, symmetrical. GI: No signs and/or symptoms were reported involving the gastrointestinal system. Abdomen is flat, non-distended. : suprapubic catheter in place. EENT: No deficits noted. Derm: Skin is pink, warm \T\ dry. Injury Description: Laceration sustained to right side of face, above eye lid. 20:30 Reassessment: Patient and/or family updated on plan of care and expected duration. Pain ha1 level reassessed. Patient is alert, oriented x 3, equal unlabored respirations, skin warm/dry/pink. 21:12 Reassessment: Patient and/or family updated on plan of care and expected duration. Pain ha1 level reassessed. Patient is alert, oriented x 3, equal unlabored respirations, skin warm/dry/pink. 22:10 Reassessment: Patient and/or family updated on plan of care and expected duration. Pain ha1 level reassessed. Patient is alert, oriented x 3, equal unlabored respirations, skin warm/dry/pink. 23:04 Reassessment: Patient and/or family updated on plan of care and expected duration. Pain ha1 level reassessed. Patient is alert, oriented x 3, equal unlabored respirations, skin warm/dry/pink. Patient denies pain at this time. being discharged with dog daycare provider. Vital Signs: 13:40 BP 82 / 50; Pulse 88; Resp 16; Temp 97.0; Pulse Ox 98% on R/A; ko1 14:00 BP 93 / 56; Pulse 82; Pulse Ox 97% on R/A; ko1 15:00 BP 99 / 62; Pulse 82; Pulse Ox 99% on R/A; ko1 16:00 BP 100 / 64; Pulse 81; Pulse Ox 97% on R/A; ko1 17:00 BP 118 / 68; Pulse 84; Pulse Ox 98% on R/A; ko1 18:00 BP 117 / 69; Pulse 85; Pulse Ox 99% on R/A; ko1 19:39 BP 113 / 63; Pulse 89; Resp 20; Pulse Ox 99% on R/A; ha1 20:30 BP 115 / 62; Pulse 88; Resp 18 S; Pulse Ox 99% on R/A; ha1 21:14 BP 113 / 71; Pulse 89; Resp 18 S; Pulse Ox 99% on R/A; ha1 22:10 BP 126 / 75; Pulse 88; Resp 17 S; Pulse Ox 100% on R/A; ha1 23:05 BP 124 / 76; Pulse 87; Resp 17 S; Pulse Ox 100% on R/A; ha1 ED Course: 13:26 Patient arrived in ED. em1 13:28 Emily Cox MD is Attending Physician. sd2 13:34 Denisse Mccracken, RN is Primary Nurse. ko1 13:40 Triage completed. ko1 13:40 Arm band placed on right wrist. ko1 14:00 Patient has correct armband on for positive identification. Fall risk band placed. Bed ko1 in low position. Call light in reach. Side rails up X2. Pulse ox on. NIBP on. 14:00 Inserted saline lock: 20 gauge in right antecubital area, using aseptic technique. ko1 14:13 Head C Spine Mpr Wo Con In Process Unspecified. EDMS 15:03 Procalcitonin Sent. ko1 19:04 Attending Physician role handed off by Emily Cox MD rt 19:04 Javier Watson MD is Attending Physician. rt 23:08 No provider procedures requiring assistance completed. IV discontinued, intact, ha1 bleeding controlled, No redness/swelling at site. Pressure dressing applied. Administered Medications: 13:49 Drug: NS 0.9% 500 ml Route: IV; Rate: bolus; Site: right antecubital; ko1 15:01 Follow up: Response: No adverse reaction; IV Status: Completed infusion; IV Intake: ko1 500ml 16:14 Drug: NS 0.9% 1000 ml Route: IV; Rate: 1 bolus; Site: right antecubital; ko1 17:23 Drug: Lidocaine (1 %) 5 ml Volume: 5 ml; Route: Infiltration; ko1 20:20 Drug: NS 0.9% 500 ml Route: IV; Rate: bolus; Site: right antecubital; ha1 Medication: 23:11 VIS not applicable for this client. ha1 Intake: 15:01 IV: 500ml; Total: 500ml. ko1 Outcome: 22:03 Discharge ordered by . rt 23:09 Discharged to home via wheelchair, going home with dog daycare provider at the senior living where ha1 pt. stays 23:09 Condition: stable 23:09 Discharge instructions given to patient, marketing assistant retail division, Instructed on discharge instructions, follow up and referral plans. medication usage, Demonstrated understanding of instructions, follow-up care, medications, Prescriptions given X 1. 23:11 Patient left the ED. ha1 Signatures: Dispatcher [employer] EDMS aJmes Contreras em1 Emily Cox MD MD sd2 Winifred Sanchez, RN RN ha1 Denisse Mccracken RN RN ko1 Javier Watson MD MD rt Corrections: (The following items were deleted from the chart) 23:08 22:10 BP 124 / 76; Pulse 87bpm; Resp 17bpm; Spontaneous; Pulse Ox 100% RA; ha1 ha1
--- NOTE | 2022-05-25 22:04 | EDPHYS ---
Physician Documentation [facility] Name: Wilder Alvarez Age: 67 yrs Sex: Male : 1955 Arrival Date: 05/25/2022 Time: 13:26 Bed 18 Private MD: ED Physician Javier Watson HPI: 05/25 13:56 This 67 yrs old Male presents to ER via EMS with complaints of fall, head laceration. sd2 13:56 67 yo M presents via EMS with CC of fall with head injury. Caregiver at home heard the sd2 patient fall in the other room and found him awake and alert with a head laceration. Pt complains of head pain but denies any other areas of pain. Has intellectual disability and is currently at his mental baseline. BP borderline en route with improvement to 130s with IVFs. BP 82/50 upon arrival and IVFs continued. . Historical: - Allergies: 13:40 TB shot; ko1 13:40 tuberculin,PPD,multi-puncture; ko1 - Home Meds: 13:40 clomipramine 75 mg Oral cap [Active]; fluvoxamine 100 mg Oral cp24 1 cap three times a ko1 day [Active]; lisinopril-hydrochlorothiazide 10-12.5 mg Oral tab 1 tab once daily for Hypertension [Active]; metformin 500 mg Oral tab 1 tab 2 times per day [Active]; VESCEPA 1 GM BY MOUTH TWICE DAILY [Active]; - PMHx: 13:40 Hypertensive disorder; Hypothyroidism; MILD MENTAL RETARDATION; Obsessive compulsive ko1 disorder; - Immunization history:: Adult Immunizations unknown. - Social history:: Smoking status: Patient denies any tobacco usage or history of. ROS: 13:56 Constitutional: Negative for fever, chills, and weight loss, Eyes: Negative for injury, sd2 pain, redness, and discharge, Cardiovascular: Negative for chest pain, palpitations, and edema, Respiratory: Negative for shortness of breath, cough, wheezing. Abdomen/GI: Negative for abdominal pain, nausea, vomiting, diarrhea. MS/Extremity: Negative for injury and deformity, Skin: Positive for injury and laceration, negative for rash, and discoloration, Neuro: Positive for headache, NEgative for numbness and tingling. Exam: 13:56 Constitutional: This is a well developed, well nourished patient who is awake, alert, sd2 and in no acute distress. Head/Face: Normocephalic, 2 cm laceration noted to lateral right eyebrow, bleeding controlled Eyes: EOMI, normal conjunctiva bilaterally Chest/axilla: Normal chest wall appearance and motion. Nontender with no deformity. Cardiovascular: Regular rate and rhythm with a normal S1 and S2. No gallops, murmurs, or rubs. 2+ distal pulses. Respiratory: Lungs have equal breath sounds bilaterally, clear to auscultation and percussion. No rales, rhonchi or wheezes noted. No increased work of breathing, no retractions or nasal flaring. Abdomen/GI: Soft, non-tender, with normal bowel sounds. No guarding or rebound. No evidence of tenderness throughout. Back: No spinal tenderness. No costovertebral tenderness. Full range of motion. Skin: Warm, dry with normal turgor. Normal color with no rashes, no lesions, and no evidence of cellulitis. Laceration presenat as above MS/ Extremity: Pulses equal, no cyanosis. Neurovascular intact. Full, normal range of motion. Ambulatory without difficulty. Psych: Awake, alert, with orientation to person, place and time. Behavior, mood, and affect are within normal limits. 14:47 ECG was reviewed by the Attending Physician. NSR, rate 81, no STEMI criteria sd2 Vital Signs: 13:40 BP 82 / 50; Pulse 88; Resp 16; Temp 97.0; Pulse Ox 98% on R/A; ko1 14:00 BP 93 / 56; Pulse 82; Pulse Ox 97% on R/A; ko1 15:00 BP 99 / 62; Pulse 82; Pulse Ox 99% on R/A; ko1 16:00 BP 100 / 64; Pulse 81; Pulse Ox 97% on R/A; ko1 17:00 BP 118 / 68; Pulse 84; Pulse Ox 98% on R/A; ko1 18:00 BP 117 / 69; Pulse 85; Pulse Ox 99% on R/A; ko1 19:39 BP 113 / 63; Pulse 89; Resp 20; Pulse Ox 99% on R/A; ha1 20:30 BP 115 / 62; Pulse 88; Resp 18 S; Pulse Ox 99% on R/A; ha1 21:14 BP 113 / 71; Pulse 89; Resp 18 S; Pulse Ox 99% on R/A; ha1 22:10 BP 126 / 75; Pulse 88; Resp 17 S; Pulse Ox 100% on R/A; ha1 23:05 BP 124 / 76; Pulse 87; Resp 17 S; Pulse Ox 100% on R/A; ha1 Laceration: 18:06 Wound Repair of 1cm ( 0.4in ) subcutaneous laceration to forehead. Distal jmm neuro/vascular/tendon intact. Anesthesia: Local anesthetic administered with 1 mls of 1% lidocaine w/ Epi. Wound prep: Simple cleansing with betadine by me. Skin closed with 3 5-0 Prolene using simple sutures and sterile technique. Patient tolerated well. MDM: 13:28 Patient medically screened. sd2 13:56 Differential diagnosis: Differential diagnosis includes but is not limited to: sd2 Fracture, contusion, abrasion, closed head injury, pneumothorax, intra-abdominal injury, intracranial hemorrhage, spinal injury among others. Data reviewed: vital signs, nurses notes, EMS record. 18:53 Transition of care: After a detail discussion of the patient's case, care is sd2 transferred to Javier Watson MD. 22:26 ED course: Presents to the ED with fall, he had a appearing urine that was leukocyte rt and nitrite positive, will treat. Rest of the work-up is unremarkable. Patient had a fall while in the ED, was reassessed by Nigel, not found to have any further injuries. Patient stable for outpatient care, return precautions discussed.. 05/25 13:43 Order name: CBC with Diff; Complete Time: 14:27 sd2 05/25 13:43 Order name: CMP; Complete Time: 14:27 sd2 05/25 13:43 Order name: Magnesium; Complete Time: 14:27 sd2 05/25 13:43 Order name: Troponin High Sensitivity; Complete Time: 14:27 sd2 05/25 13:59 Order name: Urine Microscopic Only; Complete Time: 21:45 sd2 05/25 14:41 Order name: Procalcitonin; Complete Time: 16:00 sd2 05/25 13:43 Order name: EKG - Nurse/Tech; Complete Time: 14:27 sd2 05/25 13:43 Order name: CT Head C Spine sd2 05/25 13:47 Order name: Head C Spine Mpr Wo Con; Complete Time: 14:27 EDMS 05/25 21:23 Order name: Urine Dipstick-Ancillary; Complete Time: 21:45 EDMS 05/25 13:43 Order name: Dressing - Wound; Complete Time: 13:47 sd2 05/25 13:43 Order name: Gloves, Sterile; Complete Time: 13:46 sd2 05/25 13:43 Order name: Prolene, Sutures; Complete Time: 13:47 sd2 05/25 13:43 Order name: Setup Suture Tray; Complete Time: 13:46 sd2 Administered Medications: 13:49 Drug: NS 0.9% 500 ml Route: IV; Rate: bolus; Site: right antecubital; ko1 15:01 Follow up: Response: No adverse reaction; IV Status: Completed infusion; IV Intake: ko1 500ml 16:14 Drug: NS 0.9% 1000 ml Route: IV; Rate: 1 bolus; Site: right antecubital; ko1 17:23 Drug: Lidocaine (1 %) 5 ml Volume: 5 ml; Route: Infiltration; ko1 20:20 Drug: NS 0.9% 500 ml Route: IV; Rate: bolus; Site: right antecubital; ha1 Disposition: 22:26 Co-signature as Attending Physician, Javier Watson MD I agree with the assessment and rt plan of care. Disposition Summary: 05/25/22 22:03 Discharge Ordered Location: Home rt Problem: new rt Symptoms: have improved rt Condition: Stable rt Diagnosis - Facial laceration rt - UTI/ Urinary tract infection, site not specified rt Followup: rt - With: Private Physician - When: 7 - 10 days - Reason: Staple/Suture removal Discharge Instructions: - Discharge Summary Sheet rt - Facial Laceration rt - Urinary Tract Infection, Adult, [id number] rt Forms: - Medication Reconciliation Form rt - Thank You Letter rt - Antibiotic Education rt - Prescription Opioid Use rt Prescriptions: - Macrobid 100 mg Oral Capsule - take 1 capsule by ORAL route every 12 hours for 7 days; 14 capsule; Refills: 0, rt Product Selection Permitted Signatures: Dispatcher [employer] EDMS Nigel Sunshine PA PA jmm Dunlop, Stephanie, MD MD sd2 Winifred Sanchez RN RN ha1 Denisse Mccracken RN RN ko1 Javier Watson MD MD rt Corrections: (The following items were deleted from the chart) 13:58 13:56 Constitutional: Negative for fever, chills, and weight loss, Eyes: Negative for sd2 injury, pain, redness, and discharge, Cardiovascular: Negative for chest pain, palpitations, and edema, Respiratory: Negative for shortness of breath, cough, wheezing. Abdomen/GI: Negative for abdominal pain, nausea, vomiting, diarrhea. MS/Extremity: Negative for injury and deformity, Skin: Positive for injury and laceration, negative for rash, and discoloration, Neuro: Negative for headache, numbness and tingling. sd2
[2022-05-25 23:17] VITALS: TEMP 97
[2022-05-25 23:28] VITALS: O2SAT 100
[2022-05-25 23:29] VITALS: BP 124/76
== END 2022-05-25 23:11 | disposition home or self-care (01) ==
LOC: ER 13:23
PROC: 0JQ10ZZ Repair Face Subcutaneous Tissue and Fascia, Open Approach (ICD-10-PCS; principal; 2022-05-25)
DX: S01.81XA Laceration without foreign body of other part of head, initial encounter (principal); N39.0 Urinary tract infection, site not specified; I10 Essential (primary) hypertension; Z88.7 Allergy status to serum and vaccine
CPT/HCPCS: 93005; 85025; 36415; 83735; 84484; 80053; 84145; 70450; 72125; 12011; J2001; J7040; J7030; 81003; 81015; 96360; 99284